=== PATIENT | female | born 1970 | race Caucasian/White ===

== ENCOUNTER → 2020-07-06 10:51 | Outpatient (CLI) | payer OTHER, SELFPAY ==
--- NOTE | ~2020-07-06 | US_ITS ---
EXAMINATION: US soft tissue head and neck DATE: 07/06/2020 11:11 INDICATION: Globus hystericus TECHNIQUE: Multiple ultrasound images of the anterior neck were obtained. COMPARISON: None. FINDINGS: A normal-sized right jugular chain lymph node is seen with central fatty hilum and measuring 3 mm in short axis diameter. No pathologically enlarged cervical lymphadenopathy, abnormal masses or fluid co llections identified. The right thyroid lobe measures 5.0 x 1.6 x 1.6 cm. The left thyroid lobe margi ures 5.5 x 1.3 x 1.5 cm. The thyroid isthmus measures 4 mm in thickness. 5 mm wider than tall right t hyroid nodule, unclear whether anechoic and cystic TI-RADS 1 or solid and very hypoechoic TI RADS 4, in either case not meeting size criteria for biopsy or follow-up. There is normal echotexture, echoge nicity and vascular flow throughout the main tear of the thyroid gland. IMPRESSION: 1. Likely benign 5 mm right thyroid nodule which does not meet size criteria for either follow-up or biopsy. Otherwise unremarkable ultrasound with no pathologically enlarged lymphadenopathy or other ab normal masses or fluid collections. Reviewed, dictated and finalized at location A. RPERSON IMPRESSION: 1. Likely benign 5 mm right thyroid nodule which does not meet size criteria fo r either follow-up or biopsy. Otherwise unremarkable ultrasound with no patholo gically enlarged lymphadenopathy or other abnormal masses or fluid collections.
== END ==
PROVIDERS: Visit Provider Physician Assistant Medical
DX: F45.8 Other somatoform disorders (principal)
CPT/HCPCS: 76536

== ENCOUNTER 2020-07-27 12:33 | Outpatient (CLI) | payer OTHER, SELFPAY ==
--- NOTE | ~2020-07-27 | CT_ITS ---
EXAMINATION: CT diagnostic chest wo con EXAM DATE: 07/27/2020 12:59 INDICATION: R91.1 - Solitary pulmonary nodule. TECHNIQUE: Spiral CT of the chest without contrast. Low-dose technique. Axial, coronal and sagittal i mages were reviewed. Coronal maximum intensity pixel images of chest reviewed. The dose-length prod uct (DLP) for this examination was 77.04 mGy-cm. The exposure was tailored according to patient size (auto mA exposure control), and iterative reconstruction (ASIR) was used as additional dose reductio n technique. There is no prior study for comparison. FINDINGS: Innumerable centrilobular groundglass nodular opacities throughout the lungs consistent wi th nonspecific bronchiolitis. Some differential diagnosis considerations for this includes respirator y bronchiolitis-interstitial lung disease (RB-ILD), hypersensitivity pneumonitis, chronic infectious process (TB or fungal), vasculitis. There are a couple of punctate nodules likely granulomas. There are no pleural or pericardial effusio ns. Tracheobronchial tree is patent. There is no mediastinal, hilar or axillary lymphadenopathy. There is no pneumothorax. Heart normal in size. No evidence of coronary arterial calcification. Gastric surgical change, probably bypass. Breast implants. There is mild thoracic spondylosis with out osteoblastic or osteolytic lesions identified. IMPRESSION: Innumerable faint centrilobular groundglass nodules, nonspecific bronchiolitis. Some diff erential considerations above. Reviewed, dictated and finalized at location B. ING MACHINE OPERATOR IMPRESSION: Innumerable faint centrilobular groundglass nodules, nonspecific br onchiolitis. Some differential considerations above.
== END 2020-07-27 12:34 | disposition home or self-care (01) ==
PROVIDERS: PCP Internal Medicine; Visit Provider Internal Medicine Critical Care Medicine
DX: R91.1 Solitary pulmonary nodule (principal); R91.8 Other nonspecific abnormal finding of lung field
CPT/HCPCS: 71250

== ENCOUNTER 2020-11-06 11:02 | Emergency (ER) | payer OTHER, SELFPAY ==
--- NOTE | ~2020-11-06 | CT_ITS ---
EXAMINATION: CT chest high resolution [facility] EXAM DATE: 11/06/2020 12:26 INDICATION: chest pain, lung nodules TECHNIQUE: Spiral CT of the chest without contrast. HRCT. Axial, coronal and sagittal images of the chest were reviewed. Coronal maximum intensity pixel images of chest reviewed. The dose-length prod uct (DLP) for this examination was 146.73 mGy-cm. The exposure was tailored according to patient siz e (auto mA exposure control), and iterative reconstruction (ASIR) was used as additional dose reducti on technique. Comparison is made to prior examination from 07/27/2020. FINDINGS: No change in innumerable centrilobular groundglass nodular opacities throughout the lungs consistent with nonspecific chronic bronchiolitis. Some differential diagnosis considerations for th is includes respiratory bronchiolitis-interstitial lung disease (RB-ILD), hypersensitivity pneumoniti s, chronic infectious process (TB or fungal), vasculitis. No intralobular septal thickening. There are a couple of punctate nodules likely granulomas, also unchanged. There are no pleural or per icardial effusions. Tracheobronchial tree is patent. There is no mediastinal, hilar or axillary l ymphadenopathy. There is no pneumothorax. Heart normal in size. No evidence of coronary arteria l calcification. Gastric bypass surgical changes. Breast implants. Cholecystectomy clips. There is mild thoracic spondylosis without osteoblastic or osteolytic lesions identified. There is no signifi cant interval change. IMPRESSION: Unchanged faint centrilobular groundglass nodules, nonspecific chronic bronchiolitis. Clay e differential considerations above. Reviewed, dictated and finalized at location B. 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 Some differential considerations above.
--- NOTE | ~2020-11-06 | XR_ITS ---
EXAMINATION: XR chest 2V DATE: 11/06/2020 11:51 INDICATION: Chest pain. TECHNIQUE: Frontal and lateral views of the chest were obtained. COMPARISON: Chest CT 07/27/2020 FINDINGS: The chest demonstrates clear lungs without pneumonia, pleural effusion, or pneumothorax. Th e heart size is normal. There are changes of anterior fusion procedure. Breast implants are noted. Th ere are surgical changes in the stomach. IMPRESSION: 1. No acute cardiopulmonary disease. Reviewed, dictated and finalized at location A.
[2020-11-06 11:15] VITALS: BP 116/94; PULSE 104; RESP 22; TEMP 36.1; O2SAT 100
--- NOTE | 2020-11-06 11:15 | ECG_ITS ---
Measurements Intervals [place] Rate: 90 P: 70 ID: 154 QRS: 39 QRSD: 94 T: 25 QT: 350 QTc: 430 Interpretive Statements SINUS RHYTHM MINIMAL Q WAVES- ANTEROLATERAL LEADS BORDERLINE ST-T WAVE ABNORMALITY- INFERIOR LEADS BASELINE ARTIFACT- I, II, III, AVR, AVL, V1-V2 BORDERLINE ECG Electronically Signed On 11-06-2020 12:06:05 CDT by Rl Loving D.O.
[2020-11-06 11:46] LABS: Basophils Percent Auto 0.5 % (0.2-1.2); Eosinophils Percent Auto 0.5 % (0-4.4); Hematocrit 34.9 % (37.0-47.0); Hemoglobin 10.7 g/dL (12.0-15.0); Immature Granulocyte Absolute 0.02 K/mm3 (0.00-0.031); Immature Granulocyte Percent A 0.3 % (0-0.5); Lymphocytes Absolute Auto 1.56 K/mm3 (0.9-3.2); Lymphocytes Percent Auto 20.5 % (18.3-44.2); Mean Corpuscular HGB Conc 30.7 g/dl (32-36); Mean Corpuscular Volume 78.3 fl (80-100); Mean Platelet Volume 8.2 fl (7.4-10.4); Monocytes Absolute Auto 0.5 K/mm3 (0.1-0.6); Monocytes Percent Auto 7.1 % (2.6-8.5); Neutrophils Absolute Auto 5.4 K/mm3 (1.3-6.7); Neutrophils Percent Auto 71.1 % (45.5-73.1); Platelet Count Result 309 k/mm3 (150-375); Red Blood Count 4.46 M/mm3 (4.2-5.4); Red Cell Distribution Width 19.5 % (11.5-14.5); White Blood Count 7.6 K/mm3 (4.5-10.0)
--- NOTE | 2020-11-06 11:46 | PC.NURSE ---
Pt to XRAY via stretcher.
[2020-11-06 11:55] LABS: Anion Gap 5 mmol/L (8-16); Blood Urea Nitrogen 17 mg/dL (7-17); Calcium 9.5 mg/dL (8.4-10.2); Carbon Dioxide 26 mmol/L (22-30); Chloride 108 mmol/L (98-107); Estimated CRCL calculation 108 ml/min; Estimated Glomerular Filt Rate > 60; Glucose 94 mg/dL (65-105); Potassium 3.9 mmol/L (3.4-5.0); Sodium 139 mmol/L (137-145)
[2020-11-06 12:00] LABS: INR 0.9; Prothrombin Time 12.9 Seconds (11.1-14.7)
[2020-11-06 12:01] LABS: Partial Thromboplastin Time 32.2 SECONDS (22.3-36.8)
--- NOTE | 2020-11-06 12:03 | ED.CHESTPAIN ---
HPI - Chest Pain General Chief Complaint: Chest Pain Stated Complaint: Chest pain Time Seen by Provider: 11/06/20 11:20 History of Present Illness HPI narrative: Patient is a 50-year-old female who presents ER with chest pain. Patient reports she started having discomfort last week and worsened over the weekend. She contacted her pulmonary disease specialist who instructed her to come to the ER. She has chronic lung disease with lung nodules. Pain starts under the breasts and goes up to the center of her chest. It is a tight aching feeling. Gets better with naproxen and then worsens when the naproxen wears off. No fevers or chills or sweats. No cough or shortness of breath. Pulmonology would like a D-dimer and then a CTA if positive or a high resolution CT if negative. Related Data Home Medications Medication Instructions Recorded Confirmed pantoprazole 40 mg tablet,delayed 40 mg PO DAILY tablet 12/22/19 11/05/20 release tizanidine 4 mg tablet 4 mg PO TID PRN 12/27/19 11/05/20 bupropion HCl 300 mg 24 hr tablet, 300 mg PO QAM 09/19/20 11/05/20 extended release cimetidine 400 mg tablet 400 mg PO QHS 09/19/20 11/05/20 Focalin XR 20 mg PO DAILY 11/05/20 11/05/20 Allergies Allergy/AdvReac Type Severity Reaction Status Date / Time clarithromycin Allergy Mild nausea, Verified 11/05/20 13:08 sick Review of Systems Review of Systems: All systems reviewed & are unremarkable except as noted in HPI and below Constitutional: Constitutional: Denies chills and Denies fever(s) ENT: Denies nasal congestion and Denies sore throat Cardiovascular: Cardiovascular: Reports chest pain, Denies rapid heart rate and Denies radiating jaw, neck or arm pain Respiratory: Respiratory: Denies cough and Denies dyspnea [facility]LY [facility] Past Medical History Medical History ADD (attention deficit disorder) Adenomatous colon polyp Chest pain Emphysema, unspecified GERD (gastroesophageal reflux disease) Lung nodule Rhinosinusitis SOB (shortness of breath) on exertion Tobacco consumption Surgical History Surgical History Gastric bypass status for obesity H/O abdominoplasty Hx laparoscopic cholecystectomy Family History Family History Father Carcinoma, lung Grandparent Carcinoma of stomach Grandparent Carcinoma of stomach Social History Social History Years smoked: 20 Smoking status: Current every day smoker Tobacco type: cigarettes Alcohol intake: current Substance use: never Gender identity (if verbalized by the patient): Female Spiritual care concerns: No Exam Narrative: Exam Narrative: GENERAL: Well-appearing, well-nourished, and in no acute distress. HEAD: Normocephalic, atraumatic. CHEST: Clear to auscultation. No respiratory distress. HEART: Tachycardic and regular. Normal peripheral pulses. ABDOMEN: Soft, nontender, nondistended. EXTREMITIES: Normal range of motion. No edema. SKIN: Warm, dry, no rash. NEURO: Alert and oriented x3. PSYCH: Normal mood and affect. Course Course Emergency Course: Patient informed of his results. Discussed case with patient's pulmonary disease specialist who recommended some specialty testing for patient's abnormal lung imaging. Patient unable to provide sputum. Discharge home with continued anti-inflammatories as Toradol improved her discomfort. We will also give some [place] for breakthrough pain. Vital Signs Vital signs: Vital Signs Temperature 97.0 F L 11/06/20 11:15 Pulse Rate 104 H 11/06/20 11:15 Respiratory Rate 22 H 11/06/20 11:15 Blood Pressure 116/94 H 11/06/20 11:15 Pulse Oximetry 100 11/06/20 11:15 Temperature 97.0 F L 11/06/20 11:15 Pulse Rate 89 11/06/20 15:35 Respiratory Rate 23 H 11/06/20 15:35 Blood Pressure 143/80 H 11/06/20 15:35 Pulse Oximetry 100 11/06/20 15:35 MDM
[2020-11-06 12:07] LABS: Troponin I < 0.012 ng/mL (0.000-0.034)
[2020-11-06 12:08] LABS: D Dimer 0.48 ug/mL (<0.48)
--- NOTE | 2020-11-06 13:37 | PC.NURSE ---
Pt ambulated to RR, declines VS at this time. Pt states she needs something for this pain in my chest , pt tearful. EDP made aware.
[2020-11-06 13:46] VITALS: BP 134/77; PULSE 78; RESP 14; O2SAT 100
[2020-11-06] MEDS: KETOROLAC 30 MG/ML VIAL (*BKC) IV PUSH (13:46)
[2020-11-06 14:40] VITALS: BP 143/80; PULSE 78; RESP 18; O2SAT 99
[2020-11-06 15:14] LABS: Rheumatoid Factor < 8.6 IU/ML (<12)
[2020-11-06 15:25] LABS: Troponin I < 0.012 ng/mL (0.000-0.034)
[2020-11-06 15:35] VITALS: BP 143/80; PULSE 89; RESP 23; O2SAT 100
[2020-11-06 16:05] VITALS: BP 142/86; PULSE 76; RESP 18; O2SAT 100
[2020-11-11 10:57] LABS: Anti Cyclic Citrullinated Pept <16 Units (<20)
[2020-11-11 12:25] LABS: NIL 0.07 IU/mL; Quantiferon TB Plus, 1T NEGATIVE (NEGATIVE); TB1-NIL <0.00 IU/mL; TB2-NIL <0.00 IU/mL
[2020-11-13 07:35] LABS: ANA Cascade Screen Negative (Negative)
== END 2020-11-06 16:06 | disposition home or self-care (01) ==
PROVIDERS: Emergency Provider Emergency Medicine; PCP Internal Medicine
DX: R07.89 Other chest pain (principal); F98.8 Other specified behavioral and emotional disorders with onset usually occurring in childhood and adolescence; Z86.010 Personal history of colon polyps; J43.9 Emphysema, unspecified; Z98.84 Bariatric surgery status; F17.210 Nicotine dependence, cigarettes, uncomplicated; R94.31 Abnormal electrocardiogram [ECG] [EKG]
CPT/HCPCS: 36415; 71046; 71250; 80048; 84484; 85025; 85380; 85610; 85730; 86038; 86200; 86331; 86430; 86480; 86606; 86609; 93005; 96374; 99284; J1885

== ENCOUNTER 2020-11-08 08:10 | Outpatient (CLI) | payer OTHER, SELFPAY ==
--- NOTE | 2020-11-08 16:50 | WPDPFTINT ---
PFT Procedure Performed PFT Procedure Performed Spirometry with Pre/Post Bronchodilator Plethysmography (Lung Vol) Diffusing Cap (DLCO) Flow Vol Loop PFT Interpretation This is a pulmonary function test with pre and post-bronchodilator spirometry, plethysmography and diffusing capacity. The test was performed and results interpreted in accordance with the 2019 and 2005 ATS/ERS Task Force guidelines respectively using the Global Lung Function Initiative-2012 reference equations. Patient demonstrated good effort and cooperation. Reproducibility criteria were met. The quality of the pre bronchodilator spirometry maneuver was Grade A and post bronchodilator spirometry maneuver was Grade A. Findings: Spirometry: There is decreased maximal expiratory airflow at low lung volumes with a mildly count concave expiratory flow tracing. The contour of the inspiratory flow tracing is normal. The pre bronchodilator FVC is 3.57 L, 94% predicted. The pre bronchodilator FEV1 is 2.48 L, 82% predicted. The FEV1: FVC ratio 69%. The post bronchodilator FVC is 3.70 L, representing a 4% increase. The post bronchodilator FEV1 is 2.60 L, representing a 5% increase. Plethysmography: The total lung capacity is 5.59 L, 102% predicted. Functional residual capacity is 2.79 L, 90% predicted. The residual volume is 2.02 L, 103% predicted. Diffusion capacity: The absolute diffusion capacity is 17.1, 72% predicted. The diffusing capacity corrected for alveolar volume is 3.52, 79% predicted. Impression: There is a mild obstructive abnormality with a normal FEV1 and without significant improvement after inhaling a single dose of albuterol. The lung volumes are normal. The absolute diffusing capacity is mildly decreased and normalizes when corrected for alveolar volume. There are no prior studies for comparison
== END 2020-11-08 08:11 | disposition home or self-care (01) ==
PROVIDERS: PCP Internal Medicine; Visit Provider Internal Medicine Pulmonary Disease
DX: R06.00 Dyspnea, unspecified (principal); R94.2 Abnormal results of pulmonary function studies
CPT/HCPCS: 94060; 94726; 94729

== ENCOUNTER → 2020-11-12 02:30 | Outpatient (CLI) | payer OTHER, SELFPAY ==
[2020-11-12 23:32] LABS: SARS-CoV-2 RNA PCR Negative
== END ==
PROVIDERS: PCP Internal Medicine; Visit Provider Internal Medicine Gastroenterology
DX: Z01.812 Encounter for preprocedural laboratory examination (principal); Z20.822 Contact with and (suspected) exposure to COVID-19
CPT/HCPCS: C9803; U0003; U0005

== ENCOUNTER 2020-11-15 00:46 | Day surgery (SDC) | payer OTHER, SELFPAY ==
[2020-11-05 13:18] VITALS: BMI 23.4
[2020-11-15 10:50] VITALS: BP 134/84; PULSE 84; RESP 20; TEMP 36.5; O2SAT 98; BMI 24.3
[2020-11-15] MEDS: LACTATED RINGERS 1,000 ML 150 ML IV CONT (11:04)
--- NOTE | 2020-11-15 11:26 | WPDANESEPPF ---
Anes - Initial Pre Proc Eval Procedure: Operation Date: 11/15/20 12:15 Proposed Procedures p Esophagogastroduodenoscopy & Screening Colonoscopy - Dewayne Brush MD Date/Time: 11/15/20 11:26 Surgeon: Dewayne Brush MD Pre Op Diagnosis: hx of colon polyps, dysphagia Patient Data Age: 50 Gender: F Height: 5 ft 7 in Weight: 70.6 kg Last Vital Signs Temp 97.7 F 11/15/20 10:50 Pulse 84 11/15/20 10:50 Resp 20 11/15/20 10:50 BP 134/84 11/15/20 10:50 Pulse Ox 98 11/15/20 10:50 Allergies Allergy/AdvReac Type Severity Reaction Status Date / Time clarithromycin Allergy Mild nausea, Verified 11/15/20 10:47 sick Home Medications Medication Instructions Recorded Confirmed Type pantoprazole 40 mg tablet,delayed 40 mg PO DAILY tablet 12/22/19 11/14/20 History release tizanidine 4 mg tablet 4 mg PO TID PRN 12/27/19 11/14/20 History bupropion HCl 300 mg 24 hr tablet, 300 mg PO QAM 09/19/20 11/14/20 History extended release cimetidine 400 mg tablet 400 mg PO QHS 09/19/20 11/14/20 History Focalin XR 20 mg PO DAILY 11/05/20 11/14/20 History hydrocodone-acetaminophen 1 tablet PO Q6H PRN #12 tablet 11/06/20 11/14/20 Rx naproxen 500 mg PO BID #14 tablet 11/06/20 11/14/20 Rx Patient hx anesthesia problems: none Family hx anesthesia problems: none PMFSH Past Medical History Medical History ADD (attention deficit disorder) Adenomatous colon polyp Chest pain Emphysema, unspecified GERD (gastroesophageal reflux disease) Lung nodule Rhinosinusitis SOB (shortness of breath) on exertion Tobacco consumption Surgical History Surgical History Gastric bypass status for obesity H/O abdominoplasty Hx laparoscopic cholecystectomy Family History Family History Father Carcinoma, lung Grandparent Carcinoma of stomach Grandparent Carcinoma of stomach Social History Social History Years smoked: 20 Smoking status: Current every day smoker Tobacco type: cigarettes Alcohol intake: current Alcohol use details: OCCATIONALLY Substance use: never Substance use type: does not use Living arrangements: alone Gender identity (if verbalized by the patient): Female Spiritual care concerns: No Anes - Eval Final PreProcedure Day of Procedure 11/15/20 11:26 Patient weight: normal Heart: regular rate and rhythm Lungs: clear to auscultation Airway: Mallampati scale class III Neurological: alert and oriented Last oral intake: >/= 8 hours ASA classification: II Emergent: no Anesthetic plan: proceed Anesthesia type and monitoring: general GIVS and standard monitoring Informed Consent: The patient's anesthetic plan and its attendant risks and benefits were discussed with the patient/family/POA. Questions were solicited and answers provided to the satisfaction of the patient/family/POA.
--- NOTE | 2020-11-15 12:01 | PM.HPGS ---
History of Present Illness History of Present Illness Consent: Risks, benefits, and alternatives have been discussed and questions answered. Patient agrees to proceed with procedure. Chief complaint: hx of colon polyps, dysphagia Narrative: Mere Ramirez is a 50 year old female here for egd and colonoscopy, had gastric bypass about 20 years ago for bariatric surgery, then she was getting EGD every 4-5 years because marginal ulcer at site of surgery- she has done quite well using protonix daily. Last EGD 2015 and she also believes that her last colonoscopy around same time with polyps in the past. She is here because choking after taking her pills Review of Systems Constitutional: Constitutional: Denies headache(s) and Denies weakness Eyes: Eyes: Denies blurry vision ENT: Reports Normal hearing present, Denies headache(s) and Denies neck pain Cardiovascular: Cardiovascular: Denies chest pain and Denies dyspnea Respiratory: Respiratory: Denies dyspnea Gastrointestinal: Gastrointestinal: Reports no additional gastrointestinal complaints Genitourinary: Genitourinary: Denies dysuria Musculoskeletal: Musculoskeletal: Denies neck pain Integumentary/Breasts: Skin/Breast: Denies dry skin Neurologic: Reports Normal hearing present, Denies headache(s) and Denies weakness Psychiatric: Psychiatric: Denies anxiety Endocrine: Endocrine: Denies change in body appearance Hematologic/Lymphatic: Hematologic/Lymphatic: Denies easy bleeding Allergic/Immunologic: Allergic/Immunologic: Denies urticaria PMFSH Past Medical History Medical History ADD (attention deficit disorder) Adenomatous colon polyp Chest pain Dysphagia Emphysema, unspecified GERD (gastroesophageal reflux disease) Lung nodule Rhinosinusitis SOB (shortness of breath) on exertion Tobacco consumption Surgical History Surgical History Gastric bypass status for obesity H/O abdominoplasty Hx laparoscopic cholecystectomy Family History Family History Father Carcinoma, lung Grandparent Carcinoma of stomach Grandparent Carcinoma of stomach Social History Social History Years smoked: 20 Smoking status: Current every day smoker Tobacco type: cigarettes Alcohol intake: current Alcohol use details: OCCATIONALLY Substance use: never Substance use type: does not use Living arrangements: alone Gender identity (if verbalized by the patient): Female Spiritual care concerns: No Meds Home Medications and Allergies Home Medications Medication Instructions Recorded Confirmed Type pantoprazole 40 mg tablet,delayed 40 mg PO DAILY tablet 12/22/19 11/14/20 History release tizanidine 4 mg tablet 4 mg PO TID PRN 12/27/19 11/14/20 History bupropion HCl 300 mg 24 hr tablet, 300 mg PO QAM 09/19/20 11/14/20 History extended release cimetidine 400 mg tablet 400 mg PO QHS 09/19/20 11/14/20 History Focalin XR 20 mg PO DAILY 11/05/20 11/14/20 History hydrocodone-acetaminophen 1 tablet PO Q6H PRN #12 tablet 11/06/20 11/14/20 Rx naproxen 500 mg PO BID #14 tablet 11/06/20 11/14/20 Rx Allergies Allergy/AdvReac Type Severity Reaction Status Date / Time clarithromycin Allergy Mild nausea, Verified 11/15/20 10:47 sick Vital Signs Vital Signs - 24 hr 11/15/20 10:50 Temperature 97.7 F Pulse Rate 84 Respiratory Rate 20 Blood Pressure 134/84 Pulse Oximetry 98 Exam Const: General: comfortable and no acute distress HENMT: General nose exam: Normal nares present Eyes: General: appearance normal, both eyes and all related structures Neck: Neck: no JVD Resp: Auscultation: clear to auscultation bilaterally Cardio: Rate: regular rate Rhythm: regular rhythm GI: Inspection: non-distended GI Palp: Yes Soft to palpation Skin: General skin exam:
[2020-11-15 12:45] VITALS: BP 115/59; PULSE 73; RESP 21; O2SAT 98
[2020-11-15 12:55] VITALS: BP 114/82; PULSE 74; RESP 21; O2SAT 99
[2020-11-15 13:05] VITALS: BP 136/75; PULSE 69; RESP 19; O2SAT 99
== END 2020-11-15 13:16 | disposition home or self-care (01) ==
PROVIDERS: PCP Internal Medicine; Visit Provider Internal Medicine Gastroenterology
PROC: 0DJ08ZZ Inspection of Upper Intestinal Tract, Via Natural or Artificial Opening Endoscopic (ICD-10-PCS; CPT 43235; principal; 2020-11-15 12:15)
DX: Z12.11 Encounter for screening for malignant neoplasm of colon (principal); K57.30 Diverticulosis of large intestine without perforation or abscess without bleeding; K64.8 Other hemorrhoids; R13.19 Other dysphagia; K25.9 Gastric ulcer, unspecified as acute or chronic, without hemorrhage or perforation; Z98.0 Intestinal bypass and anastomosis status; F98.8 Other specified behavioral and emotional disorders with onset usually occurring in childhood and adolescence; J43.9 Emphysema, unspecified; F17.210 Nicotine dependence, cigarettes, uncomplicated; Z98.84 Bariatric surgery status; R13.10 Dysphagia, unspecified; Z87.19 Personal history of other diseases of the digestive system
CPT/HCPCS: 45378; 43239; 43245; 88305; C1726; J2704; J7120

== ENCOUNTER → 2020-11-23 00:28 | Outpatient (CLI) | payer OTHER, SELFPAY ==
[2020-11-23 19:26] LABS: SARS-CoV-2 RNA PCR Negative
== END ==
PROVIDERS: PCP Internal Medicine; Visit Provider Internal Medicine Pulmonary Disease
DX: Z01.812 Encounter for preprocedural laboratory examination (principal); Z20.822 Contact with and (suspected) exposure to COVID-19
CPT/HCPCS: C9803; U0003; U0005

== ENCOUNTER 2020-11-26 00:23 | Day surgery (SDC) | payer OTHER, SELFPAY ==
[2020-11-14 16:33] VITALS: BMI 23.4
[2020-11-26] VITALS (7 sets, daily range): BP systolic 78–146; BP diastolic 44–77; PULSE 78–88; RESP 15–24; TEMP 36.2–36.4; O2SAT 95–100
--- NOTE | ~2020-11-26 | XR_ITS ---
EXAMINATION: XR fl bronchoscopy w imaging INDICATION: Right lower lobe biopsy, bronchoscopy TECHNIQUE: Single fluoroscopic image is submitted for review. Total fluoroscopic time was 108.0 secon ds. COMPARISON: None available FINDINGS: Fluoroscopic image demonstrates a biopsy device projecting in the right lung base. IMPRESSION: 1. Please refer to procedure note for full details. Reviewed, dictated and finalized at location A.
--- NOTE | ~2020-11-26 | XR_ITS ---
EXAMINATION: XR chest 1V portable INDICATION: Post bronchoscopy TECHNIQUE: Portable AP chest at 1008 hours COMPARISON: 11/06/2020 FINDINGS: There are minimal airspace opacities in the right lung base. No pleural effusion or pneumot horax is identified. The cardiomediastinal silhouette is normal. Fusion hardware is noted in the lowe r cervical spine. IMPRESSION: 1. Minimal airspace opacity of the right lung base, consistent with bronchoscopic change. Reviewed, dictated and finalized at location A. IMPRESSION: 1. Minimal airspace opacity of the right lung base, consistent with bronchoscop ic change.
[2020-11-26] MEDS: LACTATED RINGERS 1,000 ML 150 ML IV CONT (07:57)
--- NOTE | 2020-11-26 08:48 | PM.IMHP ---
H&P: HPI History of Present Illness Date/Time: 11/26/20 08:48 Chief Complaint: pulmonary nodules Narrative: 11/26: Patient arrived today for bronchoscopy. States she quit smoking 11/10 with one relapse 11/23. States she has no chest pain, sputum, fever, hemoptysis and breathing is improved. Covid test negative. Bronchscopy procedure benefits and risks reviewed. From clinic notes: Addendum: Patient called on 11/06 and continued to have SOB and CP and recommended she go to the ED. Patient seen in ED on 11/06 with negative troponin, EKG, d dimer. High resolution CT scan with unchanged centrilobular ground glass nodules. Sent ANNA cascade, anti CCP, RF, quantiferon gold and hypersensitivity panel. She has decreased tobacco to 3 cigs per day. I talked to patient on 11/08 and with continued symptoms and unchanged CT infiltrates we scheduled bronchoscopy for 11/26. She also has a rhematology appointment with Dr. Spencer on 01/14/21. On 11/11 RF < 8.6, others pending. EXAMINATION: CT chest high resolution [facility] EXAM DATE: 11/06/2020 12:26 INDICATION: chest pain, lung nodules TECHNIQUE: Spiral CT of the chest without contrast. HRCT. Axial, coronal and sagittal images of the chest were reviewed. Coronal maximum intensity pixel images of chest reviewed. The dose-length product (DLP) for this examination was 146.73 mGy-cm. The exposure was tailored according to patient size (auto mA exposure control), and iterative reconstruction (ASIR) was used as additional dose reduction technique. Comparison is made to prior examination from 07/27/2020. FINDINGS: No change in innumerable centrilobular groundglass nodular opacities throughout the lungs consistent with nonspecific chronic bronchiolitis. Some differential diagnosis considerations for this includes respiratory bronchiolitis-interstitial lung disease (RB-ILD), hypersensitivity pneumonitis, chronic infectious process (TB or fungal), vasculitis. No intralobular septal thickening. There are a couple of punctate nodules likely granulomas, also unchanged. There are no pleural or pericardial effusions. Tracheobronchial tree is patent. There is no mediastinal, hilar or axillary lymphadenopathy. There is no pneumothorax. Heart normal in size. No evidence of coronary arterial calcification. Gastric bypass surgical changes. Breast implants. Cholecystectomy clips. There is mild thoracic spondylosis without osteoblastic or osteolytic lesions identified. There is no significant interval change. IMPRESSION: Unchanged faint centrilobular groundglass nodules, nonspecific chronic bronchiolitis. Some differential considerations above. This is a pulmonary function test with pre and post-bronchodilator spirometry, plethysmography and diffusing capacity. The test was performed and results interpreted in accordance with the 2019 and 2005 ATS/ERS Task Force guidelines respectively using the Global Lung Function Initiative-2012 reference equations. Patient demonstrated good effort and cooperation. Reproducibility criteria were met. The quality of the pre bronchodilator spirometry maneuver was Grade A and post bronchodilator spirometry maneuver was Grade A. Findings: Spirometry: There is decreased maximal expiratory airflow at low lung volumes with a mildly count concave expiratory flow tracing. The contour of the inspiratory flow tracing is normal. The pre bronchodilator FVC is 3.57 L, 94% predicted. The pre bronchodilator FEV1 is 2.48 L, 82% predicted. The FEV1: FVC ratio 69%. The post bronchodilator FVC is 3.70 L, representing a 4% increase. The post bronchodilator FEV1 is 2.60 L, representing a 5% increase. Plethysmography: The total lung capacity is 5.59 L, 102% predicted. Functional residual capacity is 2.79 L, 90% predicted. The residual volume is 2.02 L, 103% predicted. Diffusion capacity: The absolute diffusion ca
--- NOTE | 2020-11-26 09:00 | WPDANESEPPF ---
Anes - Initial Pre Proc Eval Procedure: Operation Date: 11/26/20 09:15 Proposed Procedures p Bronchoscopy w/ Fluoroscopy - Jordan Ballard MD Date/Time: 11/26/20 09:00 Surgeon: Jordan Ballard MD Pre Op Diagnosis: pulmonary nodules Patient Data Age: 50 Gender: F Height: 1.7 m Weight: 71 kg Last Vital Signs Temp 97.2 F L 11/26/20 07:53 Pulse 87 11/26/20 07:53 Resp 18 11/26/20 07:53 BP 143/77 H 11/26/20 07:53 Pulse Ox 100 11/26/20 07:53 Allergies Allergy/AdvReac Type Severity Reaction Status Date / Time clarithromycin Allergy Mild nausea, Verified 11/26/20 07:51 sick Home Medications Medication Instructions Recorded Confirmed Type tizanidine 4 mg tablet 4 mg PO TID PRN 12/27/19 11/14/20 History bupropion HCl 300 mg 24 hr tablet, 300 mg PO QAM 09/19/20 11/14/20 History extended release cimetidine 400 mg tablet 400 mg PO QHS 09/19/20 11/14/20 History Focalin XR 20 mg PO DAILY 11/05/20 11/14/20 History hydrocodone-acetaminophen 1 tablet PO Q6H PRN #12 tablet 11/06/20 11/14/20 Rx naproxen 500 mg PO BID #14 tablet 11/06/20 11/14/20 Rx pantoprazole 40 mg tablet,delayed 40 mg PO BID 30 Days #60 tablet 11/15/20 Rx release Patient hx anesthesia problems: none Family hx anesthesia problems: none PMFSH Past Medical History Medical History ADD (attention deficit disorder) Adenomatous colon polyp Chest pain Dysphagia Emphysema, unspecified GERD (gastroesophageal reflux disease) Lung nodule Rhinosinusitis SOB (shortness of breath) on exertion Tobacco consumption Surgical History Surgical History Gastric bypass status for obesity H/O abdominoplasty Hx laparoscopic cholecystectomy Family History Family History Father Carcinoma, lung Grandparent Carcinoma of stomach Grandparent Carcinoma of stomach Social History Social History Years smoked: 20 Smoking status: Current every day smoker Tobacco type: cigarettes Alcohol intake: current Substance use: never Substance use type: does not use Living arrangements: alone Gender identity (if verbalized by the patient): Female Spiritual care concerns: No Anes - Eval Final PreProcedure Day of Procedure 11/26/20 09:00 Patient weight: overweight Heart: regular rate and rhythm Lungs: clear to auscultation Airway: Mallampati scale class III (use glidescope) Neurological: alert and oriented Last oral intake: >/= 8 hours ASA classification: II Emergent: no Anesthetic plan: proceed Anesthesia type and monitoring: general ETT and standard monitoring Informed Consent: The patient's anesthetic plan and its attendant risks and benefits were discussed with the patient/family/POA. Questions were solicited and answers provided to the satisfaction of the patient/family/POA.
[2020-11-26] MEDS: SODIUM CHLORIDE 0.9% IV 500 ML BAG IRRIGATION (09:54)
[2020-11-26] MEDS: LIDOCAINE HCL 2% LOCAL INJ 20 ML VIAL INFILTRATE (09:55)
[2020-11-26 11:37] LABS: Source Bronchial Fluid Bronchial Lavage
[2020-11-26 11:38] LABS: Appearance Bronchial Fluid Clear; Color Bronchial Fluid Colorless
[2020-11-26 11:39] LABS: Eosinophils Bronchial Fluid 0 %; Monocytes Bronchial Fluid 0 %
[2020-11-26 12:20] LABS: Lymphocytes Bronchial Fluid 0 %; Macrophages Bronchial Fluid 100; Neutrophils Bronchial Fluid 0 %; Other Cells Bronchial Fluid 0 %
== END 2020-11-26 11:05 | disposition home or self-care (01) ==
PROVIDERS: PCP Internal Medicine; Visit Provider Internal Medicine Pulmonary Disease
PROC: BB1DZZZ Fluoroscopy of Upper Airways (ICD-10-PCS; CPT 31624; principal; 2020-11-26 09:00)
DX: J84.89 Other specified interstitial pulmonary diseases (principal); J98.11 Atelectasis; F98.8 Other specified behavioral and emotional disorders with onset usually occurring in childhood and adolescence; J43.9 Emphysema, unspecified; K21.9 Gastro-esophageal reflux disease without esophagitis; Z79.891 Long term (current) use of opiate analgesic; Z98.84 Bariatric surgery status; F17.210 Nicotine dependence, cigarettes, uncomplicated
CPT/HCPCS: 31628; 31632; 31624; 71045; 76000; 85999; 87015; 87070; 87102; 87116; 87205; 87206; 88104; 88108; 88305; 88313; J0330; J1100; J2405; J2704; J7040; J7120

== ENCOUNTER 2021-02-01 10:16 | Outpatient (CLI) | payer OTHER, SELFPAY ==
--- NOTE | ~2021-02-01 | CT_ITS ---
EXAMINATION: CT diagnostic chest wo con DATE: 02/01/2021 10:58 INDICATION: Abnormal finding of lung field TECHNIQUE: Computed tomography (CT) of the chest was performed without intravenous contrast. Automate d exposure control and iterative reconstruction technique were employed. Exam dose: 153.91 mGy-cm to dominga exam DLP. COMPARISON: 11/26/2020 portable AP chest 11/06/2020 CT chest high resolution scan FINDINGS: Bilateral breast implants are noted. There are groundglass interstitial changes in the lungs, most prominent in the upper lung zones, whic h may be mild interstitial pneumonitis, small airways disease or fibrotic change. Minimal atelectasis in the lower lobes. Mild emphysematous changes of the lungs. Nonspecific 3 mm nodule, left lower lobe, possibly a small pulmonary granuloma (series 4 image 83). Normal heart size. No pericardial or pleural effusion. No hilar or mediastinal mass lesion or lymphadenopathy. Thoracic aortic and great vessel calcification. No thoracic aortic aneurysm. size. Normal morphology of the adrenal glands. Status post cholecystectomy. Status post gastric bypass surgery. IMPRESSION: Mild emphysematous changes Mild groundglass interstitial changes of the lungs, most prominent in the upper lung zones, which may represent mild interstitial pneumonitis, small airways disease or fibrotic change Status post cholecystectomy Status post gastric bypass surgery Status post bilateral augmentation mammoplasty Reviewed, dictated and finalized at Location A. Reviewed, dictated and finalized at location A. IMPRESSION: Mild emphysematous changes Mild groundglass interstitial changes of the lungs, most prominent in the upper lung zones, which may represent mild interstitial pneumonitis, small airways d isease or fibrotic change Status post cholecystectomy Status post gastric bypass surgery Status post bilateral augmentation mammoplasty
== END 2021-02-01 10:17 | disposition home or self-care (01) ==
LOC: ANHIMG 10:19
PROVIDERS: PCP Internal Medicine; Visit Provider Internal Medicine Pulmonary Disease
DX: R91.8 Other nonspecific abnormal finding of lung field (principal); Z90.49 Acquired absence of other specified parts of digestive tract; Z98.84 Bariatric surgery status; Z98.890 Other specified postprocedural states
CPT/HCPCS: 71250

== ENCOUNTER 2021-03-09 11:49 | Emergency (ER) | payer OTHER, SELFPAY ==
[2021-03-09 12:25] VITALS: BP 175/95; PULSE 91; RESP 16; TEMP 37.2; O2SAT 100
[2021-03-09 12:29] LABS: Basophils Absolute Auto 0.1 K/mm3 (0.0-0.1); Basophils Percent Auto 0.7 % (0.2-1.2); Eosinophils Percent Auto 0.4 % (0-4.4); Hemoglobin 10.5 g/dL (12.0-15.0); Immature Granulocyte Absolute 0.04 K/mm3 (0.00-0.031); Immature Granulocyte Percent A 0.4 % (0-0.5); Lymphocytes Absolute Auto 1.11 K/mm3 (0.9-3.2); Mean Corpuscular HGB Conc 30.9 g/dl (32-36); Mean Corpuscular Hemoglobin 23.5 pg (26-34); Mean Corpuscular Volume 76.2 fl (80-100); Mean Platelet Volume 7.9 fl (7.4-10.4); Monocytes Absolute Auto 0.4 K/mm3 (0.1-0.6); Monocytes Percent Auto 3.2 % (2.6-8.5); Neutrophils Absolute Auto 9.4 K/mm3 (1.3-6.7); Neutrophils Percent Auto 85.3 % (45.5-73.1); Platelet Count Result 439 k/mm3 (150-375); Red Blood Count 4.46 M/mm3 (4.2-5.4); Red Cell Distribution Width 17.3 % (11.5-14.5); White Blood Count 11.1 K/mm3 (4.5-10.0)
[2021-03-09 12:40] LABS: Add Urine Microscopic? YES; Appearance Urine Clear (Clear); Bilirubin Urine Negative (Negative); Blood Urine Negative (Negative); Color Urine Yellow (Yellow); Glucose Urine UA Negative (Negative); Ketones Urine Trace mg/dL (Negative); Leukocyte Esterase Ur Negative LEU/UL (Negative); Mucus Urine Rare /lpf; Nitrate Urine Negative (Negative); Protein Urine Negative (Negative); RBC Urine 0-2 /hpf (0-2); Specific Grav Ur 1.019 (1.001-1.035); Squamous Epithelial Cell Urine Rare /hpf (Few); Urobilinogen Urine Negative mg/dL (<2.0); WBC Urine 0-3 /hpf
[2021-03-09 12:40] LABS: Alanine Aminotransferase 14 U/L (4-35); Albumin Level 4.3 g/dL (3.5-5.1); Alkaline Phosphatase 114 U/L (38-126); Anion Gap 8 mmol/L (8-16); Aspartate Amino Transferase 23 U/L (14-36); Bilirubin,Total 0.3 mg/dL (0.2-1.3); Blood Urea Nitrogen 29 mg/dL (7-17); Calcium 10.3 mg/dL (8.4-10.2); Carbon Dioxide 28 mmol/L (22-30); Chloride 99 mmol/L (98-107); Estimated CRCL calculation 73 ml/min; Estimated Glomerular Filt Rate > 60; Glucose 107 mg/dL (65-110); Lipase 47 U/L (23-300); Potassium 4.6 mmol/L (3.4-5.0); Sodium 135 mmol/L (137-145)
[2021-03-09 15:15] VITALS: BP 145/73; PULSE 79; RESP 16; TEMP 37; O2SAT 97
--- NOTE | 2021-03-09 15:36 | PC.NURSE ---
pt states she cant do this and is leaving. out with family
== END 2021-03-10 04:33 | disposition left against medical advice (07) ==
PROVIDERS: Emergency Provider Emergency Medicine; PCP Internal Medicine
DX: R10.9 Unspecified abdominal pain (principal)
CPT/HCPCS: 36415; 80053; 81001; 81025; 83690; 85025; 99199

== ENCOUNTER → 2021-06-30 08:48 | Outpatient (CLI) | payer OTHER, SELFPAY ==
--- NOTE | ~2021-06-30 | MR_ITS ---
EXAMINATION: MR cervical spine wo/w con EXAM DATE: 06/30/2021 09:57 INDICATION: Fusion of spine, cervical region fusion of spine, cervical region. TECHNIQUE: Multi-sequential, multiplanar MR images of the cervical spine were obtained without contra st. Axial T2, axial T2 MERGE sequence. Sagittal T1, T2, T2 fat saturation images also obtained. Axi al T1 weighted sequence. Patient was then injected with 15 mL Multihance intravenous contrast and re imaged. Postcontrast axial and sagittal T1-weighted fat saturation sequences were obtained. Comparis on is made to prior examination from 11/26/2016. FINDINGS: Congenitally narrow cervical spinal canal. There is anterior and interbody fusion at C5-6. Mild to moderate disc disease C3-4, mild at C4-5 and C6-7. The spinal cord signal intensity and intri nsic morphology is normal. Cervicomedullary junction is normal in appearance. There are no suspicious marrow signal abnormalities. Paraspinal soft tissue is unremarkable. There are no areas of abnormal enhancement on the post contrast images. Level by level evaluation: C2-C3: Disc does not extend beyond the endplate margin. Uncovertebral joint arthropathy: Mild left. Facet joint arthropathy: Mild bilateral. Neural foraminal stenosis: No stenosis. Central canal stenosis: No stenosis. C3-C4: There is a mild diffuse disc bulge. Uncovertebral joint arthropathy: Moderate right, mild to moderate left. Facet joint arthropathy: Moderate bilateral. Neural foraminal stenosis: Moderate to severe right, mild left. Central canal stenosis: Mild to moderate superimposed on congenital. . Central canal measures 5 mm in mid sagittal AP diameter . C4-C5: There is a minimal diffuse disc bulge. Uncovertebral joint arthropathy: Mild bilateral. Facet joint arthropathy: Moderate right, mild left. Neural foraminal stenosis: Moderate right. Central canal stenosis: Mild superimposed on congenital. . Central canal measures 6 mm in mid sagittal AP diameter . C5-C6: This level is fused. Uncovertebral joint arthropathy: Fused. Facet joint arthropathy: Mild to moderate bilateral. Neural foraminal stenosis: No stenosis. Central canal stenosis: Congenital. C6-C7: There is a mild diffuse disc bulge. Uncovertebral joint arthropathy: Mild to moderate bilateral. Facet joint arthropathy: Mild to moderate bilateral. Neural foraminal stenosis: Mild to moderate left, mild right. Central canal stenosis: Mild. . Central canal measures 6-7 mm in mid sagittal AP diameter C7-T1: Disc does not extend beyond the endplate margin. Uncovertebral joint arthropathy: Moderate right, mild to moderate left. Facet joint arthropathy: Mild to moderate bilateral. Neural foraminal stenosis: Mild to moderate left. Central canal stenosis: No stenosis. There is been mild interval progression spondylosis, and in particular the C4-5 and 5-6 neural forami nal stenosis compared to prior study. IMPRESSION: 1. C3-4 moderate to severe and C4-5 moderate right neural foraminal stenosis. 2. Less spondylosis other levels superimposed on congenital central canal stenosis. Reviewed, dictated and finalized at location A. BUYER IMPRESSION: 1. C3-4 moderate to severe and C4-5 moderate right neural foraminal stenosis. 2. Less spondylosis other levels superimposed on congenital central canal sten osis.
[2021-06-30 09:12] LABS: Estimated Glomerular Filt Rate > 60
== END ==
PROVIDERS: PCP Internal Medicine
DX: M43.22 Fusion of spine, cervical region (principal); M47.892 Other spondylosis, cervical region
CPT/HCPCS: 72156; A9577

== ENCOUNTER 2021-09-02 14:52 | Outpatient (CLI) | payer OTHER, SELFPAY ==
--- NOTE | 2021-09-03 09:29 | WPDPFTINT ---
PFT Procedure Performed PFT Procedure Performed Spirometry with Pre/Post Bronchodilator Plethysmography (Lung Vol) Diffusing Cap (DLCO) Flow Vol Loop PFT Interpretation This is a pulmonary function test with pre and post-bronchodilator spirometry, plethysmography and diffusing capacity. The test was performed and results interpreted in accordance with the 2019 and 2005 ATS/ERS Task Force guidelines respectively using the Global Lung Function Initiative-2012 reference equations. Patient demonstrated good effort and cooperation. Reproducibility criteria were met. The quality of the pre bronchodilator spirometry maneuver was Grade A and post bronchodilator spirometry maneuver was Grade A. Findings: Spirometry: There contour the inspiratory and expiratory flow tracing are normal. The pre bronchodilator FVC is 3.48 L, 92% predicted. The pre bronchodilator FEV1 is 2.58 L, 86% predicted. The FEV1: FVC ratio 74%. The post bronchodilator FVC is 3.52 L, representing 1% increase. The post bronchodilator FEV1 is 2.76 L, representing a 7% increase. The post bronchodilator FEV1: FVC ratio is 78%. Plethysmography: The total lung capacity is 5.81 L, 106% predicted. The functional residual capacity is 3.27 L, 106% predicted. The residual volume is 1.94 L, 98% predicted. Diffusing capacity: The diffusing capacity unadjusted for hemoglobin and carboxyhemoglobin is 14.7, 62% predicted. The diffusing capacity adjusted for alveolar volume is 3.33, 75% predicted. In comparison to previous pulmonary function test on 11/08/2020 the post bronchodilator FVC is unchanged from 3.70 L to 3.52 L. The post bronchodilator FEV1 is unchanged from 2.60 L to 2.76 L. The total lung capacity is unchanged from 5.59 L to 5.81 L. The functional residual capacity is increased from 2.79 L to 3.27 L. The residual volume is unchanged from 2.02 L to 1.94 L. The diffusing capacity unadjusted for hemoglobin and carboxyhemoglobin is decreased from 17.1 to 14.7. The diffusing capacity adjusted for alveolar volume is unchanged from 3.52 to 3.33. Impression: The spirometry is normal without evidence of an obstructive abnormality. There is no significant improvement after inhaling a single dose of albuterol. The lung volumes are normal. The diffusing capacity unadjusted for hemoglobin and carboxyhemoglobin is moderately decreased and normalizes when adjusted for alveolar volume. In comparison to previous pulmonary function on 11/08/2020 there has been a greater than anticipated time dependent increase in the functional residual capacity, a greater than anticipated decrease in the diffusing capacity unadjusted for hemoglobin and carboxyhemoglobin with no significant change in the FVC, FEV1, total lung capacity, residual volume and diffusing capacity adjusted for alveolar volume. Clinical correlation is recommended. There are no prior studies for comparison
== END 2021-09-02 14:53 | disposition home or self-care (01) ==
LOC: ANHPFT 14:54
PROVIDERS: PCP Internal Medicine; Visit Provider Internal Medicine Pulmonary Disease
DX: R06.00 Dyspnea, unspecified (principal)
CPT/HCPCS: 94060; 94726; 94729

== ENCOUNTER 2021-09-20 09:00 | Outpatient (CLI) | payer OTHER, SELFPAY ==
--- NOTE | ~2021-09-20 | CT_ITS ---
EXAMINATION: CT diagnostic chest wo con DATE: 09/20/2021 09:38 INDICATION: Respiratory bronchiolitis interstitial lung disease TECHNIQUE: Computed tomography (CT) of the chest was performed without intravenous contrast. Automate d exposure control and iterative reconstruction technique were employed. The dose-length product was 170.29 mGy-cm. COMPARISON: Chest CTs: 01/24/2021, 11/06/2020, 07/27/2020. FINDINGS: Thoracic aorta: Mild atherosclerotic calcifications. Lung parenchyma and airways: Stable pulmonary nodules, requires no additional follow-up. Stable upper lobe predominant centrilobular groundglass opacities and mild peripheral tree-in-bud opacities as ca n be seen with RB-ILD, hypersensitivity pneumonitis, chronic infection or vasculitis. Thoracic inlet, axillae and chest wall: Bilateral breast augmentation. Mediastinum: Unremarkable. Heart and pericardium: Unremarkable. Coronary artery calcifications: Absent. Pleura: No mass or effusion. Upper abdomen: Gastric bypass. Several hyperdense foci within the stomach likely ingested medication or supplement. Bones: No acute osseous finding. IMPRESSION: No acute process in the chest. Stable findings of chronic bronchiolitis, differential discussed above . Reviewed, dictated and finalized at location K. IMPRESSION: No acute process in the chest. Stable findings of chronic bronchiolitis, differ ential discussed above.
== END 2021-09-20 09:01 | disposition home or self-care (01) ==
LOC: ANHIMG 09:01
PROVIDERS: PCP Internal Medicine; Visit Provider Internal Medicine Pulmonary Disease
DX: J84.115 Respiratory bronchiolitis interstitial lung disease (principal); I70.0 Atherosclerosis of aorta; R91.8 Other nonspecific abnormal finding of lung field; Z98.84 Bariatric surgery status
CPT/HCPCS: 71250

== ENCOUNTER 2022-08-06 13:16 | Outpatient (CLI) | payer BC, SELFPAY ==
[2022-08-06 13:49] LABS: Uric Acid 2.9 mg/dL (2.5-7.5)
[2022-08-06 13:52] LABS: Rheumatoid Factor < 8.6 IU/ML (<12)
[2022-08-06 14:39] LABS: Erythrocyte Sedimentation Rate 5 mm/hr (0-20)
[2022-08-09 16:04] LABS: Cyclic Citrullinated Peptide <16 Units (<20)
[2022-08-11 08:55] LABS: Anti Nuclear Antibody Titer 1:40 (Negative)
[2022-08-11 17:36] LABS: HLA B27 Negative (Negative)
== END 2022-08-06 13:17 | disposition home or self-care (01) ==
PROVIDERS: PCP Physician Assistant Medical
DX: L40.59 Other psoriatic arthropathy (principal)
CPT/HCPCS: 36415; 84550; 85652; 86038; 86039; 86430; 86812

== ENCOUNTER 2023-02-01 20:46 | Emergency (ER) | payer BC, SELFPAY ==
[2023-02-01 20:50] VITALS: BP 130/101; PULSE 118; RESP 20; TEMP 36.6; O2SAT 96
[2023-02-01 20:52] VITALS: BP 127/110; PULSE 120; O2SAT 95
--- NOTE | 2023-02-01 20:52 | ED.NEUROSD ---
HPI - Neuro Symptoms/Deficit General Chief Complaint: Neuro Symptoms/Deficit Stated Complaint: Neck Pain Source: patient Mode of arrival: ambulatory Limitations: no limitations History of Present Illness HPI Narrative: 52 year old female presents to the Emergency Department complaining of neck pain and burning pain to arms. Patient has history of cervical stenosis and peripheral neuropathy. She was recently hospitalized at [facility] for same and her gabapentin was increased. She has seen her PCP 01/20. She states she was taken off hydrocodone because of her elevated LFT's. She did improve with a course of steroids after hospitalization. She is requesting repeat labs, pain control and course of steroids. Onset (ago): year(s) Severity: severe Quality: burning Relieving factors: none Exacerbating factors: none On Anticoagulants: No Related Data Home Medications Medication Instructions Recorded Confirmed tizanidine 4 mg tablet 4 mg PO BID PRN Spasms 11/06/21 01/20/23 methotrexate sodium 2.5 mg tablet 5 mg PO WEEKLY 12/23/22 01/20/23 gabapentin 600 mg tablet 600 mg PO TID 01/20/23 01/20/23 hydrocodone 10 mg-acetaminophen See Rx Instructions PO Q12H PRN 01/20/23 01/20/23 325 mg tablet Allergies Allergy/AdvReac Type Severity Reaction Status Date / Time leflunomide Allergy Severe Hand Verified 01/20/23 08:15 Neuropathy clarithromycin AdvReac Mild nausea, Verified 01/20/23 08:15 sick Review of Systems Review of Systems: All systems reviewed & are unremarkable except as noted in HPI and below Constitutional: Constitutional: Reports as per HPI, Reports no additional constitutional complaints, Denies chills, Denies fever(s) and Reports weakness Eyes: Eyes: Reports as per HPI and Reports no additional eye complaints ENT: Reports system reviewed and no additional complaints, except as documented Cardiovascular: Cardiovascular: Reports as per HPI and Reports no additional cardiovascular complaints Respiratory: Respiratory: Reports as per HPI and Reports no additional respiratory complaints Gastrointestinal: Gastrointestinal: Reports as per HPI and Reports no additional gastrointestinal complaints Genitourinary: Genitourinary: Reports no additional female genitourinary complaints Musculoskeletal: Musculoskeletal: Reports no additional musculoskeletal complaints Integumentary/Breasts: Skin/Breast: Reports system reviewed and no additional complaints, except as docu Neurologic: Reports system reviewed and no additional complaints, except as documented, Reports as per HPI, Reports numbness and Reports weakness Comments: peripheral neuropathy, burning pain in arms Psychiatric: Psychiatric: Reports no additional psychiatric complaints Endocrine: Endocrine: Reports no additional endocrine complaints Hematologic/Lymphatic: Hematologic/Lymphatic: Reports no additional hematologic/lymphatic complaints Allergic/Immunologic: Allergic/Immunologic: Reports no additional allergic/immunologic complaints [facility] Past Medical History Medical History ADD (attention deficit disorder) Adenomatous colon polyp Chest pain Choking due to food (regurgitated) Chronic headaches Complications of gastric bypass surgery Constipation Degenerative disk disease Dysphagia Emphysema, unspecified GERD (gastroesophageal reflux disease) Interstitial lung disease Lung nodule Lymphedema Pernicious anemia Psoriatic arthritis Rhinosinusitis Scleroderma SOB (shortness of breath) on exertion Tobacco consumption Total fracture of alveolus of maxilla Surgical History Surgical History Gastric bypass status for obesity H/O abdominoplasty H/O breast augmentation H/O gastric bypass H/O tubal ligation History of mandibular surgery jaw joint replacement 2010 History of neck surgery Hx laparoscopic cholecystectomy Hx of cholecystec
[2023-02-01] MEDS: methylPREDNISolone ACETATE 40 MG/ML VIAL 80 MG IM (21:08)
[2023-02-01] MEDS: HYDROmorphone HCL INJ (*CRX) 2 MG/ML VIAL IM (21:09)
[2023-02-01 21:13] LABS: Basophils Absolute Auto 0.06 K/mm3 (0.00-0.10); Basophils Percent Auto 0.7 % (0.0-1.0); Eosinophils Absolute Auto 0.11 K/mm3 (0.02-0.50); Eosinophils Percent Auto 1.2 % (1.0-6.0); Hemoglobin 11.8 g/dL (12.0-15.0); Immature Granulocyte Absolute 0.03 K/mm3 (0.00-0.00); Immature Granulocyte Percent A 0.3 % (0.0-0.0); Lymphocytes Absolute Auto 2.68 K/mm3 (1.10-4.50); Lymphocytes Percent Auto 30.4 % (18.0-42.0); Mean Corpuscular HGB Conc 31.1 g/dL (32.0-36.0); Mean Corpuscular Volume 83.7 fL (78.0-102.0); Mean Platelet Volume 8.4 fl (9.2-11.8); Monocytes Absolute Auto 0.94 K/mm3 (0.10-0.90); Monocytes Percent Auto 10.6 % (2.0-11.0); Neutrophils Percent Auto 56.8 % (50.0-70.0); Platelet Count Result 402 K/mm3 (150-420); Red Blood Count 4.54 M/mm3 (4.20-5.40); Red Cell Distribution Width 17.7 % (11.6-14.4); White Blood Count 8.8 K/mm3 (4.8-10.8)
[2023-02-01 21:27] LABS: Alanine Aminotransferase 20 U/L (14-59); Albumin Level 3.3 g/dL (3.4-5.0); Alkaline Phosphatase 142 U/L (46-116); Anion Gap 8 mmol/L (8-16); Aspartate Amino Transferase 19 U/L (15-37); Bilirubin,Total 0.2 mg/dL (0.00-1.00); Blood Urea Nitrogen 24 mg/dL (7-18); Carbon Dioxide 27 mmol/L (21-32); Chloride 107 mmol/L (98-108); Estimated CRCL calculation 82 ml/min; Estimated Glomerular Filt Rate > 60; Glucose 76 mg/dL (70-99); Osmolality Calculated 297 mOsm/kg (285-295); Potassium 4.3 mmol/L (3.5-5.1); Sodium 142 mmol/L (136-145); Total Protein 6.5 g/dL (6.4-8.2)
[2023-02-01 22:07] VITALS: BP 150/77; PULSE 78; RESP 18; TEMP 36.6; O2SAT 97
== END 2023-02-01 22:11 | disposition home or self-care (01) ==
PROVIDERS: Emergency Provider Emergency Medicine; PCP Physician Assistant Medical
DX: M48.02 Spinal stenosis, cervical region (principal); G62.9 Polyneuropathy, unspecified; Z87.891 Personal history of nicotine dependence
CPT/HCPCS: 36415; 80053; 85025; 96372; 99284; J1030; J1170

== ENCOUNTER 2023-06-09 12:02 | Outpatient (CLI) | payer BC, SELFPAY ==
[2023-06-09 12:57] LABS: Anion Gap 7 mmol/L (8-16); Blood Urea Nitrogen 21 mg/dL (7-18); Calcium 9.1 mg/dL (8.5-10.1); Carbon Dioxide 29 mmol/L (21-32); Chloride 102 mmol/L (98-108); Estimated Glomerular Filt Rate > 60; Glucose 114 mg/dL (70-99); Osmolality Calculated 290 mOsm/kg (285-295); Potassium 4.1 mmol/L (3.5-5.1); Sodium 138 mmol/L (136-145)
== END 2023-06-09 12:03 | disposition home or self-care (01) ==
LOC: CHSLAB 12:04
PROVIDERS: PCP Physician Assistant Medical; Visit Provider Anesthesiology
DX: Z01.818 Encounter for other preprocedural examination (principal); Z79.899 Other long term (current) drug therapy
CPT/HCPCS: 36415; 80048

== ENCOUNTER 2023-06-11 00:29 | Day surgery (SDC) | payer BC, SELFPAY ==
[2023-06-01 11:02] VITALS: BMI 28.1
--- NOTE | 2023-06-01 11:12 | PC.NURSE ---
Report to the Outpatient Waiting Room, entrance under the green pavilion located off [facility], at time 0600 on date 06/11/23. Planned Procedure Time: 0730. Time changes happen often and if your time is changed the preop area will call you the afternoon before. - You and your visitor will be asked to self-screen and do not enter if you have any COVID symptoms. - A mask is optional within the hospital at this time. Patients may have clear liquids (water, carbonated beverages, clear teas, apple juice) until 8 hours prior to surgery with a maximum of 20 ounces. - No food from midnight until time of surgery Take the following medications with a SIP of water the morning of surgery: BUSPIRONE. GABAPENTIN, TAPENTADOL DO NOT STOP ANY OF YOUR OTHER PRESCRIPTION MEDICATIONS PRIOR TO SURGERY ?EXCEPT THE FOLLOWING Medications to discontinue per physician: VITAMIN Date to take last dose: 06/07/23 Please no make-up, nail burmese, hairspray, perfume, deodorant, or body powder the day of surgery. No jewelry (including any body piercings) or valuables the day of surgery, leave them at home. Please take a shower or bath the night before, or the morning of, surgery with an antibacterial soap. Wear comfortable, loose fitting clothing. - Jewelry must be removed prior to entering the operating room. Rings and piercings that are not removed may be cut off. - The hospital will not accept responsibility for valuables. - Please leave all valuables, including medications, at home the day of surgery. If you are going home after surgery, a licensed regional driver must drive you home. - NO public transportation without another adult if you receive anesthesia. - We recommend that an adult stay with you for 24 hours following discharge. - We also recommend that you do not drive, make important decision, drink alcoholic beverages, or take any drugs that were not prescribed by your health care provider for at least 24 hours after your discharge time. Follow any additional instructions given to you from your surgeon. If you or anyone in your household have experienced Covid symptoms in the past week, please notify your surgeon or the nurse liaison at the phone number below for possible testing. Telephone instructions given to PT - GADIEL KRAFT and asked if any additional questions and then verbalized understanding. Patient advised to call surgeon office or pre surgery nurse liaison [phone] if any additional questions.
[2023-06-11 06:13] VITALS: BP 125/66; PULSE 96; RESP 18; TEMP 36.4; O2SAT 96
[2023-06-11] MEDS: LACTATED RINGERS 1,000 ML 30 ML IV CONT (06:30)
--- NOTE | 2023-06-11 06:49 | WPDHPUPDATE1 ---
History and Physical Update Update Date/Time: 06/11/23 06:49 Patient seen and examined in pre-operative holding area. No interval change in medical history or symptoms other than noting she has started experiencing painful locking of her left middle finger. . Patient recalls previous discussion of benefits and alternatives to procedure. Continues to desire to proceed with left ectr poss open. Reviewed procedure, post-op expectations and risks including but not limited to bleeding, infection, injury to tendon/nerve/vessel, decreased hand function, stiffness, RSD, no change or worsening of symptoms. I discussed the possible use of assistants and their participation in the case. Patient stated understanding and signed the consent form wishing to proceed. discussed impression and Dx of likley trigger finger. discussed conservative and surgical treatment options. Discussed steroid injection, indications, expectations and risks. risks including but not limited to bleeding, bruising, pain, pigmentation changes at injection site and change in blood sugar. pt would like to proceed with left middle flexor sheath steroid injection and signed consent wishing to proceed
--- NOTE | 2023-06-11 06:50 | W.PM.PROC2 ---
Procedure Note - Detailed Date of Procedure 06/11/23 Pre-op Diagnosis left carpal tunnel syndrome and left middle trigger finger Post-op Diagnosis Same Procedure Performed left ectr and steroid injection left middle trigger finger Surgeon Candy Matute MD [employer] Analyst javid leiva pa-c Anesthesia MAC Description of Procedure ENDOSCOPIC CARPAL TUNNEL RELEASE INFORMED CONSENT: The patient was seen and examined and marked in the pre-op area.? The patient signed the consent form. PROCEDURE IN DETAIL:The patient taken back to OR on the stretcher in supine position. Time out performed with anesthesia, surgeon and staff agreeing on patient's name site and surgery to be performed SCDs were placed on the lower extremities and inflated. A tourniquet was placed on {right/left} upper extremity and antibiotics given IV After anesthesia administered sedation I injected {4}cc 1%lido with epi and 0.5% marcaine plain at the operative site The?{right upper extremity/left upper extremity}?was prepped and draped in sterile fashion the??{right upper extremity/left upper extremity} was? exsanguinated with Esmarch bandage and tourniquet inflated to 250mmHg I made a transverse incision in the {left/right} volar distal wrist crease through skin and dermis with 15 blade scalpel.? Littler scissors spread down to antebrachial fascia. A small incision was made in antebrachial fascia allowing access to Carpal tunnel. I proceeded with sequential dilation staying in line with the ring finger and hugging the hook of the hamate.? I then used the synovial elevator to free any adhesions from the underside of the transverse carpal ligament. Next I was able to insert the Microaire endoscopic carpal tunnel device with direct visualization of the transverse fibers on the monitor and proceeded with complete segmental retrograde release of the ligament in its entirety.? I irrigated with normal saline and closed with 4-0 monocryl for dermis and subcuticular closure. Next I proceeded with injecting 0.3cc 1%lidocaine plain and 0.7cc Betamethasone 6mg/ml into the left middle finger flexor sheath around a1 gilbert A dressing of Dermabond, 4x4, zelda, and a volar splint was applied for patient safety, security, and comfort and secured with an joaquín bandage after the tourniquet was let down noting the hand was warm and well perfused. The patient was then awaken from anesthesia and transferred to the recovery room in stable condition.? Complications - none EBL- 0cc Disposition - home in stable conditions Javid Leiva PA-C was essential for positioning, retraction, closure and dressing placement [facility] Billing Surgery - Charge Forward: Surgery Billing ([id number]. [id number] for Javid)
--- NOTE | 2023-06-11 06:51 | WPDANESEPPF ---
Anes - Initial Pre Proc Eval Procedure: Operation Date: 06/11/23 07:30 Proposed Procedures p Left Endoscopic Carpal Tunnel Release, Possible Open - Candy Matute MD Date/Time: 06/11/23 06:51 Surgeon: Candy Matute MD Pre Op Diagnosis: left carpal tunnel syndrome Patient Data Age: 52 Gender: F Height: 1.7 m Weight: 72.5 kg Last Vital Signs Temp 36.4 C 06/11/23 06:13 Pulse 96 06/11/23 06:13 Resp 18 06/11/23 06:13 BP 125/66 06/11/23 06:13 Pulse Ox 96 06/11/23 06:13 O2 Del Method Room Air 06/11/23 06:13 Allergies Allergy/AdvReac Type Severity Reaction Status Date / Time leflunomide Allergy Severe Hand Verified 06/11/23 06:14 Neuropathy clarithromycin AdvReac Mild nausea, Verified 06/11/23 06:14 sick Home Medications Medication Instructions Recorded Confirmed Type tizanidine 4 mg tablet 4 mg PO BID PRN Spasms 11/06/21 06/11/23 History multivitamin 1 tablet PO DAILY #60 tabs 03/05/22 06/11/23 Rx nortriptyline 10 mg capsule 20 mg PO QHS #60 caps 05/10/23 06/11/23 Rx (Pamelor) gabapentin 600 mg tablet 900 mg PO TID #135 tabs 05/13/23 06/11/23 Rx dexmethylphenidate 10 mg tablet 10 mg PO QPM #30 tabs 05/24/23 06/11/23 Rx (Focalin) buspirone 7.5 mg tablet See Rx Instructions .Route 05/26/23 06/11/23 Rx .COMPLEX #180 tabs dexmethylphenidate 30 mg 30 mg PO QAM #30 ea 05/28/23 06/11/23 Rx capsule,extended release [id number] (Focalin XR) furosemide 20 mg tablet See Rx Instructions .Route 06/04/23 06/11/23 Rx .COMPLEX #90 tabs hydrocodone 10 mg-acetaminophen See Rx Instructions PO Q12H PRN 06/09/23 06/11/23 Rx 325 mg tablet pain #100 tabs Patient hx anesthesia problems: none Family hx anesthesia problems: none Results Review: All pre-operative results and documents have been reviewed as part of the pre-operative evaluation. [facility] Past Medical History Medical History ADD (attention deficit disorder) Adenomatous colon polyp Chest pain Choking due to food (regurgitated) Chronic headaches Complications of gastric bypass surgery Constipation Degenerative disk disease Dysphagia Emphysema, unspecified GERD (gastroesophageal reflux disease) Interstitial lung disease Lung nodule Lymphedema Pernicious anemia Psoriatic arthritis Rhinosinusitis Scleroderma SOB (shortness of breath) on exertion Tobacco consumption Total fracture of alveolus of maxilla Surgical History Surgical History Gastric bypass status for obesity H/O abdominoplasty H/O breast augmentation H/O gastric bypass H/O tubal ligation History of mandibular surgery jaw joint replacement 2009 History of neck surgery Hx laparoscopic cholecystectomy Hx of cholecystectomy Hx of decompressive lumbar laminectomy Family History Family History Father Carcinoma, lung Grandparent Carcinoma of stomach Grandparent Carcinoma of stomach Other Arthritis Hypertension Social History Social History Smoking packs per day: 0.75 Smoking cigarettes per day: 15.0 Years smoked: 8 Smoking pack-years: 6.00 Smoking status: Former smoker Tobacco type: cigarettes Second hand tobacco smoke exposure: Yes Smoking end date: 06/07/18 Alcohol intake: never Alcohol use details: OCCATIONALLY Substance use: never Substance use type: does not use Lack of Transportation: No Lack of Food: Never True Current Housing: I Have Housing Concerned About Future Housing: No Difficulty Paying Gas/Electric Bills: No Difficulty Paying for Meds: No Currently Unemployed: No Education: Master's Degree or Higher Living arrangements: alone Occupation/Education: occupation Gender identity (if verbalized by the patient): Female Sexual Orienta
[2023-06-11] MEDS: ceFAZolin 2 GM/D5W 50 ML 2 GM/50 ML BAG IVPB (07:32)
[2023-06-11 07:53] VITALS: BP 97/68; PULSE 91; RESP 14; O2SAT 99
[2023-06-11] MEDS: LIDO 1%/EPINEPHRINE 1:100,000 50 ML VIAL 6 ML INFILTRATE (07:56)
[2023-06-11] MEDS: BETAMETHASONE SOD PHOS/ACETATE 30 MG/5 ML VIAL 24 MG IM (07:56)
--- NOTE | 2023-06-11 08:40 | SUR.PHASEII ---
0834: RN called complex human resources manager to come and take over on patient because the patient was being disrespectful to RN when she was trying to help her.
[2023-06-11 08:45] VITALS: PULSE 86; RESP 20; O2SAT 99
--- NOTE | 2023-06-11 09:22 | SUR.PHASEII ---
0900 this RN resume care patient was upset with previous RN, states just wants to go home so she can take her normal pain medication, states angry that BP cuff is so tight when it goes off refuses to allow any more. all extremities pink warm good cap refill noted to fingers on left hand. patient states happy now that will be discharged, family in room agrees with plan.
== END 2023-06-11 09:00 | disposition home or self-care (01) ==
PROVIDERS: PCP Physician Assistant Medical; Visit Provider Plastic Surgery
PROC: 01N54ZZ Release Median Nerve, Percutaneous Endoscopic Approach (ICD-10-PCS; CPT 29848; principal; 2023-06-11 07:30)
DX: G56.02 Carpal tunnel syndrome, left upper limb (principal); M65.332 Trigger finger, left middle finger; F98.8 Other specified behavioral and emotional disorders with onset usually occurring in childhood and adolescence; Z98.84 Bariatric surgery status; Z87.891 Personal history of nicotine dependence
CPT/HCPCS: 29848; 20551; J0690; J0702; J2405; J2704; J3010; J7120

== ENCOUNTER 2023-08-26 02:23 | Day surgery (SDC) | payer BC, SELFPAY ==
[2023-08-24 08:38] VITALS: BMI 28.4
--- NOTE | 2023-08-24 08:39 | PC.NURSE ---
Report to the Outpatient Waiting Room, entrance under the green pavilion located off [facility], at time 0830 on date 08/26/23. Planned Procedure Time: 1030. Time changes happen often and if your time is changed the preop area will call you the afternoon before. - You and your visitor will be asked to self-screen and do not enter if you have any COVID symptoms. - A mask is optional within the hospital at this time. - No food OR DRINK from midnight until time of surgery Take the following medications with a SIP of water the morning of surgery: BUSPIRONE (IF NEEDED), GABAPENTIN, HYDROCODONE (IF NEEDED) DO NOT STOP ANY OF YOUR OTHER PRESCRIPTION MEDICATIONS PRIOR TO SURGERY ?EXCEPT THE FOLLOWING Medications to discontinue per physician: VITAMINS Date to take last dose: NO MORE UNTIL AFTER SURGERY Please no make-up, nail wolof, hairspray, perfume, deodorant, or body powder the day of surgery. No jewelry (including any body piercings) or valuables the day of surgery, leave them at home. Please take a shower or bath the night before, or the morning of, surgery with an antibacterial soap. Wear comfortable, loose fitting clothing. - Jewelry must be removed prior to entering the operating room. Rings and piercings that are not removed may be cut off. - The hospital will not accept responsibility for valuables. - Please leave all valuables, including medications, at home the day of surgery. If you are going home after surgery, a licensed truck driver supervisor must drive you home. - NO public transportation without another adult if you receive anesthesia. - We recommend that an adult stay with you for 24 hours following discharge. - We also recommend that you do not drive, make important decision, drink alcoholic beverages, or take any drugs that were not prescribed by your health care provider for at least 24 hours after your discharge time. Follow any additional instructions given to you from your surgeon. If you or anyone in your household have experienced Covid symptoms in the past week, please notify your surgeon or the nurse liaison at the phone number below for possible testing. Telephone instructions given to PT - GADIEL and asked if any additional questions and then verbalized understanding. Patient advised to call surgeon office or pre surgery nurse liaison [phone] if any additional questions.
[2023-08-26] MEDS: LACTATED RINGERS 1,000 ML 30 ML IV CONT (08:52)
[2023-08-26 08:57] VITALS: BP 92/52; PULSE 88; RESP 20; TEMP 37.2; O2SAT 97
--- NOTE | 2023-08-26 08:58 | SUR.PREOP ---
Constant figiting. Patient says this is because she didn't sleep last night and is trying to stay awake. Many complaints.
--- NOTE | 2023-08-26 09:41 | WPDANESEPPF ---
Anes - Initial Pre Proc Eval Procedure: Operation Date: 08/26/23 10:30 Proposed Procedures p Right Endoscopic Carpal Tunnel Release, Possible Open - Candy Matute MD Date/Time: 08/26/23 09:41 Surgeon: Candy Matute MD Pre Op Diagnosis: right carpal tunnel syndrome Patient Data Age: 52 Gender: F Height: 1.65 m Weight: 77.5 kg Last Vital Signs Temp 37.2 C 08/26/23 08:57 Pulse 88 08/26/23 08:57 Resp 20 08/26/23 08:57 BP 92/52 L 08/26/23 08:57 Pulse Ox 97 08/26/23 08:57 O2 Del Method Room Air 08/26/23 08:57 Allergies Allergy/AdvReac Type Severity Reaction Status Date / Time clarithromycin AdvReac Mild nausea, Verified 08/26/23 08:35 sick Home Medications Medication Instructions Recorded Confirmed Type multivitamin 1 tablet PO DAILY #60 tabs 03/05/22 08/24/23 Rx nortriptyline 10 mg capsule 20 mg PO QHS #60 caps 05/10/23 08/24/23 Rx (Pamelor) gabapentin 600 mg tablet 900 mg PO TID #135 tabs 05/13/23 08/24/23 Rx buspirone 7.5 mg tablet See Rx Instructions .Route 05/26/23 08/24/23 Rx .COMPLEX #180 tabs furosemide 20 mg tablet See Rx Instructions .Route 06/04/23 08/24/23 Rx .COMPLEX #90 tabs ondansetron 4 mg disintegrating 4 mg PO Q8H PRN nausea and 06/17/23 08/24/23 Rx tablet vomiting #20 tabs tizanidine 4 mg tablet 4 mg PO BID PRN Spasms #60 tabs 08/16/23 08/24/23 Rx dexmethylphenidate 10 mg tablet 10 mg PO QPM #30 tabs 08/23/23 08/24/23 Rx (Focalin) dexmethylphenidate 30 mg 30 mg PO QAM #30 ea 08/23/23 08/24/23 Rx capsule,extended release [id number] (Focalin XR) hydrocodone 10 mg-acetaminophen See Rx Instructions PO Q6H PRN 08/23/23 08/24/23 Rx 325 mg tablet pain #72 tabs Patient hx anesthesia problems: none Family hx anesthesia problems: none Results Review: All pre-operative results and documents have been reviewed as part of the pre-operative evaluation. [facility] Past Medical History Medical History ADD (attention deficit disorder) Adenomatous colon polyp Chest pain Choking due to food (regurgitated) Chronic headaches Complications of gastric bypass surgery Constipation Degenerative disk disease Dysphagia Emphysema, unspecified GERD (gastroesophageal reflux disease) Interstitial lung disease Lung nodule Lymphedema Pernicious anemia Psoriatic arthritis Rhinosinusitis Scleroderma SOB (shortness of breath) on exertion Tobacco consumption Total fracture of alveolus of maxilla Surgical History Surgical History Gastric bypass status for obesity H/O abdominoplasty H/O breast augmentation H/O gastric bypass H/O tubal ligation History of mandibular surgery jaw joint replacement 2009 History of neck surgery Hx laparoscopic cholecystectomy Hx of cholecystectomy Hx of decompressive lumbar laminectomy Family History Family History Father Carcinoma, lung Grandparent Carcinoma of stomach Grandparent Carcinoma of stomach Other Arthritis Hypertension Social History Social History Smoking packs per day: 0.75 Smoking cigarettes per day: 15.0 Years smoked: 8 Smoking pack-years: 6.00 Smoking status: Former smoker Tobacco type: cigarettes Second hand tobacco smoke exposure: Yes Smoking end date: 06/07/18 Alcohol intake: never Alcohol use details: OCCATIONALLY Substance use: never Substance use type: does not use Lack of Transportation: No Lack of Food: Never True Current Housing: I Have Housing Concerned About Future Housing: No Difficulty Paying Gas/Electric Bills: No Difficulty Paying for Meds: No Currently Unemployed: No Education: Master's Degree or Higher Living arrangements: alone Occupation/Education: occupation Gender identity (if verbalized
--- NOTE | 2023-08-26 10:09 | PM.HPGS ---
History of Present Illness History of Present Illness Chief complaint: right carpal tunnel syndrome Narrative: Patient seen and examined in pre-operative holding area. No interval change in medical history or symptoms. Patient recalls previous discussion of benefits and alternatives to procedure. Continues to desire to proceed with right endoscopic possible open carpal tunnel release. Reviewed procedure, post-op expectations and risks including but not limited to bleeding, infection, injury to tendon/nerve/vessel, decreased hand function, stiffness, RSD, no change or worsening of symptoms. I discussed the possible use of assistants and their participation in the case. Patient stated understanding and signed the consent form wishing to proceed. Review of Systems Review of Systems: All systems reviewed & are unremarkable except as noted in HPI and below PMFSH Past Medical History Medical History ADD (attention deficit disorder) Adenomatous colon polyp Chest pain Choking due to food (regurgitated) Chronic headaches Complications of gastric bypass surgery Constipation Degenerative disk disease Dysphagia Emphysema, unspecified GERD (gastroesophageal reflux disease) Interstitial lung disease Lung nodule Lymphedema Pernicious anemia Psoriatic arthritis Rhinosinusitis Scleroderma SOB (shortness of breath) on exertion Tobacco consumption Total fracture of alveolus of maxilla Surgical History Surgical History Gastric bypass status for obesity H/O abdominoplasty H/O breast augmentation H/O gastric bypass H/O tubal ligation History of mandibular surgery jaw joint replacement 2009 History of neck surgery Hx laparoscopic cholecystectomy Hx of cholecystectomy Hx of decompressive lumbar laminectomy Family History Family History Father Carcinoma, lung Grandparent Carcinoma of stomach Grandparent Carcinoma of stomach Other Arthritis Hypertension Social History Social History Smoking packs per day: 0.75 Smoking cigarettes per day: 15.0 Years smoked: 8 Smoking pack-years: 6.00 Smoking status: Former smoker Tobacco type: cigarettes Second hand tobacco smoke exposure: Yes Smoking end date: 06/07/18 Alcohol intake: never Alcohol use details: OCCATIONALLY Substance use: never Substance use type: does not use Lack of Transportation: No Lack of Food: Never True Current Housing: I Have Housing Concerned About Future Housing: No Difficulty Paying Gas/Electric Bills: No Difficulty Paying for Meds: No Currently Unemployed: No Education: Master's Degree or Higher Living arrangements: alone Occupation/Education: occupation Gender identity (if verbalized by the patient): Female Sexual Orientation (if Verbalized by the Patient): Straight or Heterosexual Spiritual care concerns: No Meds Home Medications and Allergies Home Medications Medication Instructions Recorded Confirmed Type multivitamin 1 tablet PO DAILY #60 tabs 03/05/22 08/24/23 Rx nortriptyline 10 mg capsule 20 mg PO QHS #60 caps 05/10/23 08/24/23 Rx (Pamelor) gabapentin 600 mg tablet 900 mg PO TID #135 tabs 05/13/23 08/24/23 Rx buspirone 7.5 mg tablet See Rx Instructions .Route 05/26/23 08/24/23 Rx .COMPLEX #180 tabs furosemide 20 mg tablet See Rx Instructions .Route 06/04/23 08/24/23 Rx .COMPLEX #90 tabs ondansetron 4 mg disintegrating 4 mg PO Q8H PRN nausea and 06/17/23 08/24/23 Rx tablet vomiting #20 tabs tizanidine 4 mg tablet 4 mg PO BID PRN Spasms #60 tabs 08/16/23 08/24/23 Rx dexmethylphenidate 10 mg tablet 10 mg PO QPM #30 tabs 08/23/23 08/24/23 Rx (Focalin) dexmethylphenidate 30 mg 30 mg PO QAM #30 ea 08/23/23 08/24/23 Rx capsule,extended release [id number] (Focali
--- NOTE | 2023-08-26 10:10 | W.PM.PROC2 ---
Procedure Note - Detailed Date of Procedure 08/26/23 Pre-op Diagnosis right carpal tunnel syndrome Post-op Diagnosis Same Procedure Performed right ectr Surgeon Candy Matute MD Machine Shop Apprentice Tonie Brink PA-C Anesthesia [facility] Description of Procedure INFORMED CONSENT: The patient was seen and examined and marked in the pre-op area.? The patient signed the consent form. PROCEDURE IN DETAIL:The patient taken back to OR on the stretcher in supine position. Time out performed with anesthesia, surgeon and staff agreeing on patient's name site and surgery to be performed SCDs were placed on the lower extremities and inflated. A tourniquet was placed on {right} upper extremity and antibiotics given IV After anesthesia administered sedation I injected {5}cc 1%lido with epi and 0.5% marcaine plain at the operative site The?{right upper extremity}?was prepped and draped in sterile fashion the??{right upper extremity} was? exsanguinated with Esmarch bandage and tourniquet inflated to 250mmHg I made a transverse incision in the {right} volar distal wrist crease through skin and dermis with 15 blade scalpel.? Littler scissors spread down to antebrachial fascia. A small incision was made in antebrachial fascia allowing access to Carpal tunnel. I proceeded with sequential dilation staying in line with the ring finger and hugging the hook of the hamate.? I then used the synovial elevator to free any adhesions from the underside of the transverse carpal ligament. Next I was able to insert the Microaire endoscopic carpal tunnel device with direct visualization of the transverse fibers on the monitor and proceeded with complete segmental retrograde release of the ligament in its entirety.? I irrigated with normal saline and closed with 4-0 monocryl for dermis and subcuticular closure. A dressing of Dermabond, 4x4, zelda, and a volar splint was applied for patient safety, security, and comfort and secured with an joaquín bandage after the tourniquet was let down noting the hand was warm and well perfused. The patient was then awaken from anesthesia and transferred to the recovery room in stable condition.? Complications - none EBL- 0cc Disposition - home in stable conditions Tonie Brink PA-C was essential for positioning, retraction, closure and dressing placement [facility] Billing Surgery - Charge Forward: Surgery Billing ([id number])
[2023-08-26] MEDS: ceFAZolin 2 GM/D5W 50 ML 2 GM/50 ML BAG IVPB (10:44)
[2023-08-26] MEDS: LIDO 1%/EPINEPHRINE 1:100,000 50 ML VIAL 10 ML INFILTRATE (10:54)
[2023-08-26 11:06] VITALS: BP 100/41; PULSE 89; RESP 16; O2SAT 94
[2023-08-26 11:30] VITALS: BP 101/47; PULSE 66; RESP 14
[2023-08-26 12:00] VITALS: BP 106/58; PULSE 60; RESP 14
[2023-08-26 12:30] VITALS: BP 110/60; PULSE 62; RESP 14
[2023-08-26 12:49] VITALS: BP 102/58; PULSE 60; RESP 14
== END 2023-08-26 12:51 | disposition home or self-care (01) ==
PROVIDERS: PCP Physician Assistant Medical; Visit Provider Plastic Surgery
PROC: 01N54ZZ Release Median Nerve, Percutaneous Endoscopic Approach (ICD-10-PCS; CPT 29848; principal; 2023-08-26 10:30)
DX: G56.01 Carpal tunnel syndrome, right upper limb (principal); F98.8 Other specified behavioral and emotional disorders with onset usually occurring in childhood and adolescence; Z98.84 Bariatric surgery status; Z87.891 Personal history of nicotine dependence
CPT/HCPCS: 29848; J0690; J2250; J2704; J3010; J7120

== ENCOUNTER 2023-09-12 07:15 | Emergency (ER) | payer BC, SELFPAY ==
--- NOTE | ~2023-09-12 | CT_ITS ---
EXAMINATION: CT cervical spine wo con DATE: 09/12/2023 07:46 INDICATION: Cervical pain TECHNIQUE: Computed tomography (CT) of the cervical spine was performed without intravenous contrast. Automated exposure control and iterative reconstruction technique were employed. Exam dose: 255.52 mGy-cm total exam DLP. COMPARISON: None FINDINGS: There is reversal cervical curvature which may be due to positioning and/or muscle spasm. C1 and C2 are normally aligned and the odontoid process is intact. Status post anterior and interbody surgical fusion at C5-6. There is moderate degenerative disc disease at the remaining levels, most prominent at C6-7. Prominen t uncovertebral joint spurring is noted as well at C6-7. No fracture or dislocation or locked facet or prevertebral soft tissue swelling.. IMPRESSION: Reversal cervical curvature which may be due to muscle spasm Status post anterior and interbody surgical fusion at C5-6 Moderate cervical spondylosis Reviewed, dictated and finalized at [facility]. Reviewed, dictated and finalized at [facility].
[2023-09-12 07:15] VITALS: PULSE 104; RESP 20; TEMP 36.6; O2SAT 99
--- NOTE | 2023-09-12 07:27 | ED.NECK ---
HPI - Neck Pain/Injury General Chief Complaint: Neck Pain/Injury Stated Complaint: neck pain Time Seen by Provider: 09/12/23 07:27 Source: patient Mode of arrival: ambulatory Limitations: no limitations History of Present Illness HPI Narrative: Patient is a 53-year-old female with chronic cervical spine neck problems and pain. She is here with acute flare of her neck pain. She also has bilateral upper extremity peripheral neuropathy pains. no injuries. complaint: neck pain Onset (ago): day(s) (1) Place: home Radiation: occiput, upper back, right upper extremity and left upper extremity Severity: severe and similar to prior neck pain Severity scale (1-10): 10 Quality: burning and sharp Duration: constant Relieving factors: none Exacerbating factors: movement of extremity and movement of neck Context: other ( Chronic cervical spine pain after prior surgeries and medication trials) Associated symptoms: none Treatments prior to arrival: prescription analgesic ( patient has [facility] at home and tizanidine) Related Data Allergies Allergy/AdvReac Type Severity Reaction Status Date / Time clarithromycin AdvReac Mild nausea, Verified 09/12/23 07:39 sick Review of Systems Review of Systems: All systems reviewed & are unremarkable except as noted in HPI and below Constitutional: Constitutional: Reports no additional constitutional complaints Eyes: Eyes: Reports no additional eye complaints ENT: Reports system reviewed and no additional complaints, except as documented Cardiovascular: Cardiovascular: Reports no additional cardiovascular complaints Respiratory: Respiratory: Reports no additional respiratory complaints Gastrointestinal: Gastrointestinal: Reports no additional gastrointestinal complaints Genitourinary: Genitourinary: Reports no additional female genitourinary complaints Musculoskeletal: Musculoskeletal: Reports no additional musculoskeletal complaints Integumentary/Breasts: Skin/Breast: Reports system reviewed and no additional complaints, except as docu Neurologic: Reports system reviewed and no additional complaints, except as documented Psychiatric: Psychiatric: Reports no additional psychiatric complaints Endocrine: Endocrine: Reports no additional endocrine complaints Hematologic/Lymphatic: Hematologic/Lymphatic: Reports no additional hematologic/lymphatic complaints Allergic/Immunologic: Allergic/Immunologic: Reports no additional allergic/immunologic complaints PMFSH Past Medical History Medical History ADD (attention deficit disorder) Adenomatous colon polyp Chest pain Choking due to food (regurgitated) Chronic headaches Complications of gastric bypass surgery Constipation Degenerative disk disease Dysphagia Emphysema, unspecified GERD (gastroesophageal reflux disease) Interstitial lung disease Lung nodule Lymphedema Pernicious anemia Psoriatic arthritis Rhinosinusitis Scleroderma SOB (shortness of breath) on exertion Tobacco consumption Total fracture of alveolus of maxilla Surgical History Surgical History Gastric bypass status for obesity H/O abdominoplasty H/O breast augmentation H/O gastric bypass H/O tubal ligation History of mandibular surgery jaw joint replacement 2010 History of neck surgery Hx laparoscopic cholecystectomy Hx of cholecystectomy Hx of decompressive lumbar laminectomy Family History Family History Father Carcinoma, lung Grandparent Carcinoma of stomach Grandparent Carcinoma of stomach Other Arthritis Hypertension Social History Social History Smoking packs per day: 0.75 Smoking cigarettes per day: 15.0 Years smoked: 8 Smoking pack-years: 6.00 Smoking status: Former smoker Tobacco type: cigarettes Second
[2023-09-12] MEDS: ORPHENADRINE CITRATE 30 MG/ML 2 ML VIAL 60 MG IM (07:46)
[2023-09-12] MEDS: predniSONE 20 MG TABLET 60 MG PO (07:47)
[2023-09-12] MEDS: KETOROLAC (*BKC) 60 MG/2 ML VIAL IM (07:47)
[2023-09-12 08:35] VITALS: PULSE 75; RESP 16; O2SAT 99
== END 2023-09-12 08:35 | disposition home or self-care (01) ==
PROVIDERS: Emergency Provider Emergency Medicine; PCP Physician Assistant Medical
DX: M47.22 Other spondylosis with radiculopathy, cervical region (principal); F98.8 Other specified behavioral and emotional disorders with onset usually occurring in childhood and adolescence; K21.9 Gastro-esophageal reflux disease without esophagitis; Z98.84 Bariatric surgery status; Z87.891 Personal history of nicotine dependence
CPT/HCPCS: 72125; 96372; 99284; J1885; J2360; J7512

== ENCOUNTER 2023-10-22 08:55 | Outpatient (CLI) | payer BC, SELFPAY ==
--- NOTE | ~2023-10-22 | CT_ITS ---
EXAMINATION:CT diagnostic chest wo con DATE: 10/22/2023 09:19 INDICATION: Respiratory bronchiolitis interstitial lung disease. TECHNIQUE: Computed tomography (CT) of the chest was performed without intravenous contrast. Automate d exposure control and iterative reconstruction technique were employed. The dose-length product (DLP ) was 166.76 mGy-cm. COMPARISON: Chest CT 09/20/2021 FINDINGS: There is mild emphysema. Again seen are multiple 1 mm nodules in the lungs with an upper susana ng predominance, consistent with respiratory bronchiolitis interstitial lung disease. There are a few 2-3 mm nodules in the lungs. There is a stable 4 mm nodule in left lower lobe. No pleural effusion. The heart size is normal. No pericardial effusion. There are bilateral breast implants. There are amanda gical changes of the stomach. Surgical clips in the right upper quadrant are likely from cholecystect stepan. There are changes of anterior fusion procedure in cervical spine. There is mild thoracic spondyl osis. IMPRESSION: 1. Mild emphysema. Reviewed, dictated and finalized at [facility]. IMPRESSION: 1. Mild emphysema.
== END 2023-10-22 08:56 | disposition home or self-care (01) ==
LOC: ANHIMG 08:57
PROVIDERS: PCP Physician Assistant Medical; Visit Provider Internal Medicine Pulmonary Disease
DX: R91.8 Other nonspecific abnormal finding of lung field (principal); J84.115 Respiratory bronchiolitis interstitial lung disease; J43.9 Emphysema, unspecified
CPT/HCPCS: 71250

== ENCOUNTER 2024-10-19 13:06 | Outpatient (CLI) | payer BC, SELFPAY ==
--- NOTE | ~2024-10-19 | CT_ITS ---
CT Scan of the Chest without Contrast: Clinical Indication: Lung nodule Technique: Contiguous sections were acquired throughout the chest without intravenous contrast. Dose reduction technique was used on this scan by utilizing automated exposure control and iterative recon struction technique. The dose-length product (DLP) was 127.32 mGy-cm. COMPARISON: 10/22/2023 Findings: There is no evidence of any significant mediastinal, hilar or axillary lymphadenopathy. The mediastin al soft tissues appear normal. There is no evidence of pleural or pericardial effusion. There is a new irregular nodular consolidation in the peripheral right upper lobe measuring up to 1.7 cm in greatest dimension. There is mild to moderate emphysema. Images through the upper abdomen reveal no abnormalities. Impression: New irregular right upper lobe pulmonary nodule measuring up to 1.7 cm in diameter. This could reflec t neoplastic lesion versus possibly focal pneumonia. Consider short-term follow-up CT in 1-3 months, PET/CT, or tissue sampling to establish a histologic diagnosis. Mild to moderate emphysema. Reviewed, dictated and finalized at [facility]. Impression: New irregular right upper lobe pulmonary nodule measuring up to 1.[address] This could reflect neoplastic lesion versus possibly focal pneumonia. Cons ider short-term follow-up CT in 1-3 months, PET/CT, or tissue sampling to estab regan a histologic diagnosis. Mild to moderate emphysema.
--- OUTSIDE RECORDS SUMMARY | 2024-10-19 13:13 | XMS_ITS | Encounter Summary ---
Author Organization [facility] Address [address] [place] [address] Phone Care Team Providers Care Engraver Copperplate Name Role Phone Costa Sanchez MD Primary Care Provider [phone] Corinna Bain Primary Care Provider [phone] Miscellaneous, Not In File Unavailable Unava ilable Tariq Jain MD Unavailable [phone] Alison Swanson MD Unavailable [phone] Rima Carrizales NP Primary Care Provider Mercedez vailable Torri Ruiz MD Primary Care Provider Encounter Details Date Type Department Care Team (Late st Contact Info) Description 07/27/2020 Orders Only [facility] Scanning, Provider Social History Tobacco Use Types Packs/Day Years Used Date Smoking Tobacco: Every Day Cigarettes 0.1 7 Comments:quit one month ago Alcohol Use Standard Drinks/Week Comments Yes 0 (1 standard drink = 0.6 oz pur e alcohol) 2-3 times a month PHQ-2 Answer Date Recorded PHQ-2 Score 2 08/14/2019 Comments No Sex and Gender Information Value Date Recorded Sex Assigned at Not on file Legal Sex Female 8:12 AM CDT Gender Identity Not on file Sexual Orientation Not on file documented as of this encounter Plan of Treatment Not on file documented as of this encounter Procedures Procedure Name Priority Date/Time Associated Diagnosis Comments SCAN - RADIOLOGY/IMAGING 07/27/2020 documented in this encounter Results * SCAN - RADIOLOGY/IMAGING (07/27/2020) Anatomical Region Laterality Modality Other us Provider Scanning Edited Result - Final documented in this encounter Visit Diagnoses Not on filedocumented in this encounter Care Teams Engraver Copperplate Relationship Specialty Start Date End Date Costa Sanchez MD [address] [place] [address] PCP - General 10/19/16 12/14/22 Corinna Bain PA [address] [place] [address] PCP - General Family Practice 12/15/22 09/19/23 Rima Carrizales NP 1 [facility] [address] [place] [address] PCP - General Nurse Practitioner 09/20/23 07/31/24 Torri Ruiz MD [address] [place] [address] PCP - General Family Medicine 08/01/24 Miscellaneous, Not In File 01/13/23 Tariq Jain MD [address] [place] [address] Consulting Physician Neurosurgery 01/13/23 Alison Swanson MD [facility] [address] [place] [address] Referring Physician Sidehand 06/09/23 documented as of this encounter
--- OUTSIDE RECORDS SUMMARY | 2024-10-19 13:13 | XMS_ITS ---
Author Organization [facility] [place], [place] Address [address] [facility] [place], [place] [address] Care Team Providers Care Carpet Floor Layer Apprentice Name Role Phone USAMA ALBERTS Primary Care Provider Eliseo Plata Unavailable [phone] REASON FOR VISIT NO FURTHER APPTS PER PT Encounters Encounter Location Date Provider Diagnosis Lizy Tee [address] [address] 07/30/2023 Eliseo Bruce PLAN OF TREATMENT No Information
--- OUTSIDE RECORDS SUMMARY | 2024-10-19 13:13 | XMS_ITS | Encounter Summary ---
Author Organization [facility] Address [address] [place] [address] Phone Care Team Providers Care Consumer Electronics Merchandiser Name Role Phone Costa Sanchez MD Primary Care Provider [phone] Corinna Bain Primary Care Provider [phone] Miscellaneous, Not In File Unavailable Unava ilable Tariq Jain MD Unavailable [phone] Alison Swanson MD Unavailable [phone] Rima Carrizales NP Primary Care Provider Mercedez vailable Torri Ruiz MD Primary Care Provider Encounter Details Date Type Department Care Team (Late st Contact Info) Description 11/06/2020 Orders Only [facility] Scanning, Provider [...] Date/Time Associated Diagnosis Comments SCAN - RADIOLOGY/IMAGING 11/06/2020 documented in this encounter Results * SCAN - RADIOLOGY/IMAGING (11/06/2020) Anatomical Region Laterality Modality Other us Provider Scanning Final Result documented in this encounter Visit Diagnoses Not on filedocumented in this encounter Care Teams Consumer Electronics Merchandiser Relationship Specialty Start Date End Date Costa Sanchez MD [address] [place] [address] PCP - General 10/19/16 12/14/22 Corinna Bain PA [address] [place] [address] PCP - General Family Practice 12/15/22 09/19/23 Rima Carrizales NP 1 [facility] [address] [place] [address] PCP - General Nurse Practitioner 09/20/23 07/31/24 Torri Ruiz MD [address] [place] [address] PCP - General Family Medicine 08/01/24 Miscellaneous, Not In File 01/13/23 Tariq Jain MD [address] [place] [address] Consulting Physician Neurosurgery 01/13/23 Alison Swanson MD 1 [facility] [address] [place] [address] Referring Physician Clip Baker 06/09/23 documented as of this encounter
--- OUTSIDE RECORDS SUMMARY | 2024-10-19 13:13 | XMS_ITS | Encounter Summary ---
Author Organization [facility] Address [address] [place] [address] Phone Care Team Providers Care Finished Metal Repairer Name Role Phone Costa Sanchez MD Primary Care Provider [phone] Corinna Bain Primary Care Provider [phone] Miscellaneous, Not In File Unavailable Unava ilable Tariq Jain MD Unavailable [phone] Alison Swanson MD Unavailable Rima Carrizales NP Primary Care Provider Mercedez vailable Torri Ruiz MD Primary Care Provider Encounter Details Date Type Department Care Team (Late st Contact Info) Description 11/08/2020 Orders Only [facility] Scanning, Provider [...] Procedure Name Priority Date/Time Associated Diagnosis Comments PULMONARY - RESULT SCAN 11/08/2020 documented in this encounter Results * PULMONARY - RESULT SCAN (11/08/2020) Anatomical Region Laterality Modality Other us Provider Scanning Edited Result - Final documented in this encounter Visit Diagnoses Not on filedocumented in this encounter Care Teams Finished Metal Repairer Relationship Specialty Start Date End Date Costa Sanchez MD [address] [place] [address] PCP - General 10/19/16 12/14/22 Corinna Bain PA [address] [place] [address] PCP - General Family Practice 12/15/22 09/19/23 Rima Carrizales NP 1 [facility] [address] [place] [address] PCP - General Nurse Practitioner 09/20/23 07/31/24 Torri Ruiz MD [address] [place] [address] PCP - General Family Medicine 08/01/24 Miscellaneous, Not In File 01/13/23 Tariq Jain MD [address] [place] [address] Consulting Physician Neurosurgery 01/13/23 Alison Swanson MD 1 [facility] [address] [place] [address] Referring Physician Control Room Helper 06/09/23 documented as of this encounter
--- OUTSIDE RECORDS SUMMARY | 2024-10-19 13:13 | XMS_ITS | Encounter Summary ---
Author Organization [facility] Address [address] [place] [address] Phone Care Team Providers Care Toy Stuffer Name Role Phone Costa Sanchez MD Primary Care Provider [phone] Corinna Bain Primary Care Provider [phone] Miscellaneous, Not In File Unavailable Unava ilable Tariq Jain MD Unavailable [phone] Alison Swanson MD Unavailable [phone] Rima Carrizales NP Primary Care Provider Mercedez vailable Torri Ruiz MD Primary Care Provider Encounter Details Date Type Department Care Team (Late st Contact Info) Description 11/26/2020 Orders Only [facility] Scanning, Provider [...] Date/Time Associated Diagnosis Comments SCAN - RADIOLOGY/IMAGING 11/26/2020 documented in this encounter Results * SCAN - RADIOLOGY/IMAGING (11/26/2020) Anatomical Region Laterality Modality Other us Provider Scanning Final Result documented in this encounter Visit Diagnoses Not on filedocumented in this encounter Care Teams Toy Stuffer Relationship Specialty Start Date End Date Costa Sanchez MD [address] [place] [address] PCP - General 10/19/16 12/14/22 Corinna Bain PA [address] [place] [address] PCP - General Family Practice 12/15/22 09/19/23 Rima Carrizales NP 1 [facility] [address] [place] [address] PCP - General Nurse Practitioner 09/20/23 07/31/24 Torri Ruiz MD [address] [place] [address] PCP - General Family Medicine 08/01/24 Miscellaneous, Not In File 01/13/23 Tariq Jain MD [address] [place] [address] Consulting Physician Neurosurgery 01/13/23 Alison Swanson MD 1 [facility] [address] [place] [address] Referring Physician Athletics Teacher 06/09/23 documented as of this encounter
--- OUTSIDE RECORDS SUMMARY | 2024-10-19 13:14 | XMS_ITS ---
Author Organization [facility] [place] Address [address] [place], [place] [address] Care Team Providers Care Financial Operations Consultant Name Role Phone USAMA ALBERTS Primary Care Provider Eliseo Plata Unavailable [phone] REASON FOR VISIT WILL NOT ACCEPT HER BACK A PATIENT Encounters Encounter Location Date Provider Diagnosis Lizy Tee [place] [address] [place] [address] 08/03/2023 Eliseo Bruce PLAN OF TREATMENT No Information
--- OUTSIDE RECORDS SUMMARY | 2024-10-19 13:14 | XMS_ITS | Referral Summary ---
Author Organization [facility] Address [address] [place] [address] Care Team Providers Care Overnight Associate Name Role Phone Miscellaneous, Not In File Unavailable Unava ilable Tariq Jain MD Unavailable [phone] Alison Swanson MD Unavailable [phone] Torri Ruiz MD Primary Care Provider Allergies Active Allergy Reactions Criticality Noted Date Comments Clarithromycin Nausea & Vomiting,St omach upset,Nausea And Vomiting Low 01/14/2021 Etanercept Other (See comments),Unknown Low 020 Reaction: Other Sulfasalazine Other (See comments) Low 12/29/2019 Reaction: Other Medications vitamin b complex tablet Take 1 tablet by mouth daily Active multivitamin tabletIndications:V itamin Deficiency Prevention Take 1 tablet by mouth 2 (two) times a day 60 tablet 5 2 Active dexmethylphenidate XR (FOCALIN XR) 30 mg 24 hr capsule Take 1 capsule (30 mg total) by mouth daily 2 Active ondansetron ODT (ZOFRAN-ODT) 4 mg disintegrating tablet DISSOLVE 1 TABLET ON THE TONGUE EVERY 8 HOURS NEEDED FOR NAUSEA OR VOMITING 3 Active dexmethylphenidate (FOCALIN) 10 mg tablet Take 1 tablet (10 mg total) by mouth nightly 3 Active FLUoxetine (PROzac) 20 mg capsule 4 Active mexiletine (MEXITIL) 150 mg capsuleIndications: Ventricular Arrhythmias Take 1 capsule (150 mg total) by mouth daily 30 capsule 1 4 Active gabapentin (NEURONTIN) 600 mg tabletIndications:N europathic Pain Take 1.5 tablets (900 mg total) by mouth 4 (four) times a day 360 tablet 2 4 Active doxycycline (ADOXA) 100 mg tablet 4 Active Nucynta 50 mg tablet ONE Tablet(s) Oral EVERY 6 HOURS x30 day(s) 4 Active baclofen (LIORESAL) 10 mg tabletIndications:M uscle Spasticity of Spinal Origin Take 1 tablet (10 mg total) by mouth 3 (three) times a day 90 tablet 2 4 Active Active Problems Problem Noted Date Diagnosed Date Neuropathic pain 06/17/2023 Cervical myelopathy 01/12/2023 ANNA positive 12/15/2022 Fatigue 12/15/2022 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 Psoriasis 12/15/2022 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 Overview (09/22/2021): Added automatically from request for surgery [id number] Ulcer, peptic, acute or chronic 09/22/2021 Overview (09/22/2021): Added automatically from request for surgery [id number] Corneal abrasion due to contact lens, right 07/2019 History of gastric bypass 01/02/2020 Epigastric pain 01/02/2020 Encounter for smoking cessation counseling 01/01 Chest pain, musculoskeletal 08/14/2019 Rhinosinusitis 08/14/2019 Syphilis contact 05/16/2018 Screening for malignant neoplasm of the rectum 1 07/17/2017 Acute vaginitis 05/15/2018 Overview (04/15/2023): Vaginitis;Recorded Elsewhere: No Location: [facility] Source: EHR Chronic: N Practice ID: [id number] Billable Time: 05:00:00 PM 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 Overview (04/15/2023): Disproportion of reconstructed breast;Recorded Elsewhere: No Location: [facility] Source: EHR Chronic: N Practice ID: [id number] Billable Time: 05:00:00 PM Syphilis contact 05/15/2018 Overview (01/05/2023): Encounter for STD screening;Recorded Elsewhere: No Location: [facility] Source: EHR Chronic: N Practice ID: [id number] Billable Time: 05:00:00 PM 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 Overview (04/15/2023): Encounter for STD screening;Recorded Elsewhere: No Location: [facility] Source: EHR Chronic: N Practice ID: [id number] Billable Time: 05:00:00 PM Psoriatic arthritis 10/25/2017 [place] 10/21/2017 Snoring 10/21/2017 Excessive daytime sleepiness 10/21/2017 Lumbar stenosis 10/07/2017 Osteoarthritis of cervical spine 02/15/2017 Neoplasm of skin 01/27/2017 Overview (04/15/2023): Neoplasm of unsp behavior of bone, soft tissue, and skin;Recorded Elsewhere: No Location: [facility] Source: EHR Chronic: N Practice ID: [id number] Billable Time: 10:30:00 AM Lentiginosis 01/27/2017 Overview (04/15/2023): Other melanin hyperpigmentation;Practice ID: [id number] 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 Overview (04/15/2023): Leukoplakia of vulva;Practice ID: [id number] Neoplastic disease 01/27/2017 Overview (04/15/2023): Neoplasm of unsp behavior of bone, soft tissue, and skin;Recorded Elsewhere: No Location: [facility] Source: EHR Chronic: N Practice ID: [id number] Billable Time: 10:30:00 AM Vulvitis 12/15/2016 Overview (04/15/2023): Chronic vulvitis;Recorded Elsewhere: No Location: [facility] Source: EHR Chronic: N Practice ID: [id number] Billable Time: 09:30:00 AM Abnormal gait 12/14/2016 Cervical pain (neck) 12/09/2016 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 10/24/[address] of the abdomen 10/09/2015 Cyst of ovary 01/29/2015 Overview (04/15/2023): Other and unspecified ovarian cyst;Recorded Elsewhere: No Location: [facility] Source: EHR Chronic: N Practice ID: [id number] Billable Time: 09:30:00 AM Menopausal symptom 01/17/2015 Overview (04/15/2023): Menopausal symptoms;Recorded Elsewhere: No Location: [facility] Source: EHR Chronic: N Practice ID: [id number] Billable Time: 11:00:00 AM Neoplasm of uncertain behavior of ovary 03/05/20 14 Overview (04/15/2023): Neoplasm of uncertain behavior of ovary;Recorded Elsewhere: No Location: [facility] Source: EHR Chronic: N Practice ID: [id number] Billable Time: 11:45:00 AM Urinary tract infectious disease 01/30/2014 Overview (04/15/2023): Urinary Tract Infection;Recorded Elsewhere: No Location: [facility] Source: EHR Chronic: N Practice ID: [id number] Billable Time: 11:00:00 AM Female genital symptoms 01/30/2014 Overview (04/15/2023): Pelvic pain;Recorded Elsewhere: No Location: [facility] Source: EHR Chronic: N Practice ID: [id number] Billable Time: 11:00:00 AM Amenorrhea 01/30/2014 Overview (04/15/2023): Amenorrhea;Recorded Elsewhere: No Location: [facility] Source: EHR Chronic: N Practice ID: [id number] Billable Time: 11:00:00 AM Dysfunctional uterine bleeding 04/19/2012 Well adult health check 03/24/2012 test negative 03/24/2012 Ill-defined intestinal infection 10/13/2011 Vaginitis and vulvovaginitis 09/15/2011 At risk for sexually transmi tted disease due to unprotected sex 09/15/2011 Overview (04/15/2023): Contact with or exposure to venereal diseases;Recorded Elsewhere: No Location: [facility] Source: EHR Chronic: N Practice ID: [id number] Billable Time: 09:30:00 AM Abdominal pain 03/03/2011 Overview (04/15/2023): Added automatically from request for surgery [id number] Abdominal pain, other specified site;Practice ID: 0001 Blood in urine 03/03/2011 Overview (04/15/2023): HEMATURIA NOS;Recorded Elsewhere: No Location: [facility] Source: EHR Chronic: N Practice ID: [id number] Billable Time: 09:45:00 AM Preoperative evaluation to r ule out surgical contraindication 09/29/2010 Abnormal radiographic examination 09/29/2010 Overview (01/05/2023): Thickened Endometrial Stripe;Practice ID: [id number] Genitourinary complaints 09/29/2010 Pulmonary emphysema Acute bronchitis Immunizations Immunization Administration Dates Next Due Influenza, Quadrivalent, Kay l Culture-based MDCK, Preservative Free, Antibiotic Free, Intramuscular 04/22/2022 Social History Tobacco Use Types Packs/Day Years Used Date Smoking Tobacco: Former Cigarettes 1 33 1 8 - 2020 Smokeless Tobacco: Never Tobacco Cessation:Counseling Given: Not Answered Comments:quit one month ago Alcohol Use Standard Drinks/Week Comments Yes 0 (1 standard drink = 0.6 oz pur e alcohol) 2-3 times a month AUDIT-C Answer Date Recorded Frequency of Alcohol Consumption Not on file 11/02/2023 Q2: How many drinks containi ng alcohol do you have on a typical day when you are drinking? Patient does not drink Frequency of Binge Drinking Not on file 10/06 PHQ-2 Answer Date Recorded PHQ-2 Score 2 08/14/2019 Hunger Vital Sign Answer Date Recorded Within the past 12 months, y ou worried that your food would run out before you got the money to buy more. Never true 11/02/19 24 Within the past 12 months, t he food you bought just didn't last and you didn't have money to get more. Never true 11/02/2023 Comments No Sex and Gender Information Value Date Recorded Sex Assigned at Not on file Legal Sex Female 8:12 AM CDT Gender Identity Not on file Sexual Orientation Not on file Last Filed Vital Signs Vital Sign Reading Time Taken Comments Blood Pressure 135/58 11/02/2023 2:51 PM CDT Pulse 88 11/02/2023 2:51 PM CDT Temperature 36.1 C (96.9 F) 11/02/2023 2:51 PM CDT Respiratory Rate 10 11/02/2023 2:51 PM CDT Oxygen Saturation 95% 11/02/2023 2:51 PM CDT Inhaled Oxygen Concentration - - Weight 74.8 kg (165 lb) 11/02/2023 2:51 PM CDT Height 165.1 cm (5' 5 ) 11/02/2023 2:51 PM CDT Body Mass Index 27.46 11/02/2023 2:51 PM CDT Plan of Treatment Not on file Goals Goal Patient Goal Type Associated Problems Recent Progress Patient-Stated? Author CCM Chronic Pain Care Plan Chronic Care Management Worsening( 2:53 PM CDT) No Prisca Eaton, RN Note: Problem: Chronic Pain Goals: 1. Minimize further functional decline 2. Maximize quality of life 3. Control pain Strategies: - Activity/exercise program recommendation - Conservative stepwise pain medicine strategy with multi-disciplinary approach - Recommend healthy lifestyle strategies and compensatory methods as needed Insurance [facility] [place] Advance Directives For more information, please contact: [phone] Documents on File Type Date Recorded Patient Journeyman Pipe Welder Expl anation ADVANCE DIRECTIVE 09/30/2017 10:47 PM ADVANCE DIRECTIVE 09/29/2017 12:00 AM * Full Code (Latest Code Status on File) Date Activated Date Inactivated Comments 01/12/2023 11:29 AM 01/13/2023 10:18 PM * Full Code Date Activated Date Inactivated Comments 10/09/2021 9:12 PM 10/11/2021 8:19 PM * Full Code Date Activated Date Inactivated Comments 08/14/2019 4:38 PM 08/15/2019 10:04 PM Care Teams Overnight Associate Relationship Specialty Start Date End Date Torri Ruiz MD [address] [place] [address] PCP - General Family Medicine 08/01/24 Miscellaneous, Not In File 01/13/23 Tariq Jain MD [address] [place] [address] Consulting Physician Neurosurgery 01/13/23 Alison Swanson MD 1 [facility] [address] [place] [address] Referring Physician Mechanical Engineering Lecturer 06/09/23
--- OUTSIDE RECORDS SUMMARY | 2024-10-19 13:14 | XMS_ITS | Clinical Summary ---
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 Name Role Phone Torri Ruiz MD Primary Care Provider [phone] Allergies No known active allergies Medications clobetasol (TEMOVATE) 0.05 % ointment clobetasol 0.05 % topical ointment APPLY A THIN LAYER TO THE AFFECTED AREA(S) BY TOPICAL ROUTE ONCE A DAY Active Estradiol 4 MCG INSERT Imvexxy Maintenance Pack 4 mcg vaginal insert INSERT 1 VAGINALY INSERT TWICE A WEEK AT BEDTIME 2 Active ferrous sulfate, 65 mg elemental, 325 (65 FE) MG tablet ferrous sulfate 325 mg (65 mg iron) tablet TAKE 1 TABLET BY MOUTH EVERY DAY 2 Active vitamin B-12 (CYANOCOBALAMIN ) 500 MCG tablet Take 1 tablet (500 mcg total) by mouth daily. Active mexiletine (MEXITIL) 150 MG Cap Take 1 capsule (150 mg total) by mouth daily. 4 Active dexmethylphenid ate (FOCALIN) 10 MG Tab tablet Take 1 tablet (10 mg total) by mouth daily. 3 Active oxyCODONE-aceta minophen (PERCOCET) 5-325 MG tablet Take 2 tablets by mouth 3 (three) times daily as needed for Pain. Active Active Problems Problem Noted Date Diagnosed Date Iron deficiency anemia 12/07/2023 Corneal abrasion due to contact lens, right 07/2019 Encounters Date Type Department Care Team Description 10/05/2024 1:13 PM CDT - 10/05/2024 11:59 PM CDT Hospital Encounter [facility] [address] [place] [address] Kasia Holt NP Discharge Disposition: Home or Self Care (Routine Discharge) 10/05/2024 Travel 10/04/2024 12:55 PM CDT - 10/04/2024 11:59 PM CDT Hospital Encounter [address] [place] [address] Torri Ruiz MD Discharge Disposition: Home or Self Care (Routine Discharge) 10/04/2024 Orders Only [address] [place] [address] Torri Ruiz MD 10/04/2024 Travel from Last 3 Months Social History Tobacco Use Types Packs/Day Years Used Date Smoking Tobacco: Every Day Smokeless Tobacco: Never Tobacco Cessation:Ready to Q uit: Not Asked; Counseling Given: Not Answered Comments No Sex and Gender Information Value Date Recorded Sex Assigned at Female 10/04/2024 12:54 PM CDT Legal Sex Female 6:29 PM CDT Gender Identity Not on file Sexual Orientation Not on file Last Filed Vital Signs Vital Sign Reading Time Taken Comments Blood Pressure 126/77 12/31/2023 9:37 AM CDT Pulse 84 12/31/2023 9:37 AM CDT Temperature 37.1 C (98.7 F) 12/31/2023 9:37 AM CDT Respiratory Rate 18 12/31/2023 9:37 AM CDT Oxygen Saturation 100% 12/31/2023 9:37 AM CDT Inhaled Oxygen Concentration - - Weight 67.3 kg (148 lb 6.4 oz) 12/31/2023 9:37 A M CDT Height 170.2 cm (5' 7 ) 02/18/2022 2:10 PM CDT Body Mass Index 23.24 02/18/2022 2:10 PM CDT Plan of Treatment Health Maintenance Due Date Last Done Comments Colorectal Cancer Screening Colonoscopy (10 Years) 1969 Annual Physical 1972 Hepatitis C 08/28/1987 DTaP, Tdap and Td Vaccines ( 1 - Tdap) 1988 Hepatitis B Vaccines (1 of 3 - 19+ 3-dose series) 1988 Pneumococcal Vaccine: 50+ Ye ars (1 of 2 - PCV) 1988 Cervical Cancer Screening Pa p with HPV Testing (Age 30 to 64) Every 5 Years 08/28/1999 Zoster Vaccines (1 of 2) 08/28/2019 Mammogram Screening 12/13/2023 12/12/2021 COVID-19 Vaccine (2 - 2023-2 5 season) 2024 06/28/2020 Cervical Cancer Screening Pa p Smear (Age 30 to 64) Every 3 Years 03/18/2025 03/18/2022 Cervical Cancer Screening with HPV 03/18/2025 Meningococcal B Vaccine Aged Out No l onger eligible based on patient's age to complete this topic Meningococcal Vaccine Aged Out No wally laurence eligible based on patient's age to complete this topic RSV Immunizations Under 20 Months Aged Out No longer eligible based on patient's age to complete this topic Procedures Procedure Name Priority Date/Time Associated Diagnosis Comments MRI CERV SPINE WO CON Routine 10/05/2024 2:21 PM CDT Neck pain Cervical vertebral fusion CT CERV SPINE WO CON Routine 10/05/2024 1:26 PM CDT Neck pain Cervical vertebral fusion VITAMIN D, 25 OH Routine 10/04/2024 1:04 PM CDT Moderate major depression, single episode (CMS/HCC) THYROID STIM HORMONE TSH Routine 10/04/2024 1:04 PM CDT Moderate major depression, single episode (CMS/HCC) COMPREHENSIVE METABOLIC PANEL Routine 10/04/2024 1:04 PM CDT Moderate major depression, single episode (CMS/HCC) IRON SAT PANEL (IRON,IBC,%SAT) Routine 10/04/2024 1:04 PM CDT Moderate major depression, single episode (CMS/HCC) FOLIC ACID SERUM Routine 10/04/2024 1:04 PM CDT Moderate major depression, single episode (CMS/HCC) VITAMIN B-12 Routine 10/04/2024 1:04 PM CDT Moderate major depression, single episode (CMS/HCC) CBC W/DIFF AUTOMATED Routine 10/04/2024 1:04 PM CDT Moderate major depression, single episode (CMS/HCC) MG SCREENING IMPLANT W MAYRA CITLALY DIGI Routine 12/12/2021 8:14 AM CDT Encounter for screening mammogram for breast cancer from Last 3 Months or Most Recently Relevant to Health Maintenance Results * MRI CERV SPINE WO CON (10/05/2024 2:21 PM CDT) Anatomical Region Laterality Modality Spine Magnetic Resonan ce 10/08/2024 2:21 PM CDT Impressions 10/08/2024 2:28 PM CDT IMPRESSION: 1. Postsurgical and multilevel degenerative changes in the cervical spine contributing to varying degrees of spinal canal and foraminal stenosis, as detailed above. 2. No obvious cervical cord signal abnormality identified, though assessment is somewhat degraded by artifact. Referred By: KASIA HOLT Interpreted By: Omar Miranda MD, 10/08/2024 2:21 PM Narrative 10/08/2024 2:28 PM [address]T [address] [place] [place] [address] INDICATION: Neck pain. Prior cervical spine surgery. EXAMINATION: MRI of the cervical spine without contrast. TECHNIQUE: Multiplanar and multisequence MRI images of the cervical spine were obtained without contrast. COMPARISON: MRI 12/24/2022 FINDINGS: There are postsurgical changes of multilevel laminectomies and posterior fusion from C3 through C5. Redemonstration of postsurgical changes of prior C5-C6 ACDF with mature fusion of the C5-C6 disc space. Cervicothoracic scoliosis. Straightening of the cervical lordosis. Slight retrolisthesis of C3 on C4. Otherwise the cervical vertebral alignment, vertebral body heights, and facet alignment are maintained. Multilevel degenerative changes are evident in the cervical spine with disc degeneration, endplate/uncovertebral osteophytes, and facet hypertrophy noted. Multilevel disc desiccation. No obvious cervical cord signal abnormality identified, though assessment is somewhat degraded by artifact. Craniocervical junction and partially imaged posterior fossa contents are unremarkable. Imaged portions of the neck soft tissues reveal no acute findings. Partially imaged mandibular postsurgical changes. C2-C3: Disc osteophyte complex. Uncovertebral osteophytes. Facet hypertrophy. Moderate canal stenosis with partial effacement of the thecal sac and flattening of the subjacent cord. Mild right foraminal narrowing. C3-C4: Postsurgical changes. Retrolisthesis. Disc osteophyte complex. Uncovertebral osteophytes. Facet hypertrophy. Dorsal spinal canal decompressed after laminectomy. Flattening of the ventral thecal sac and subjacent cord. Severe right foraminal narrowing. C4-C5: Post surgical changes. Mild disc bulge. Uncovertebral osteophytes. Facet hypertrophy. Dorsal spinal canal decompressed after laminectomy. Moderate right and mild left foraminal narrowing. C5-C6: Postsurgical changes. Posterior endplate and uncovertebral osteophytes. Facet hypertrophy. Mild canal stenosis. Moderate left and mild right foraminal narrowing. C6-C7: Disc bulge. Uncovertebral osteophytes. Facet hypertrophy. Mild ligamentum flavum thickening. Mild to moderate canal stenosis with partial effacement of the thecal sac and flattening of the subjacent cord. Moderate left and mild right foraminal narrowing. C7-T1: Facet hypertrophy. Endplate osteophytes. No significant canal stenosis. Moderate right and mild left foraminal narrowing. Procedure Note Omar Miranda MD - 10/08/[address] [place] [address] INDICATION: Neck pain. Prior cervical spine surgery. EXAMINATION: MRI of the cervical spine without contrast. TECHNIQUE: Multiplanar and multisequence MRI images of the cervical spinewere obtained without contrast. COMPARISON: MRI 12/24/2022 FINDINGS: There are postsurgical changes of multilevel laminectomies and posteriorfusion from C3 through C5. Redemonstration of postsurgical changes ofprior C5-C6 ACDF with mature fusion of the C5-C6 disc space.Cervicothoracic scoliosis. Straightening of the cervical lordosis. Slightretrolisthesis of C3 on C4. Otherwise the cervical vertebral alignment,vertebral body heights, and facet alignment are maintained. Multileveldegenerative changes are evident in the cervical spine with discdegeneration, endplate/uncovertebral osteophytes, and facet hypertrophynoted. Multilevel disc desiccation. No obvious cervical cord signalabnormality identified, though assessment is somewhat degraded byartifact. Craniocervical junction and partially imaged posterior fossa contents areunremarkable. Imaged portions of the neck soft tissues reveal no acutefindings. Partially imaged mandibular postsurgical changes. C2-C3: Disc osteophyte complex. Uncovertebral osteophytes. Facethypertrophy. Moderate canal stenosis with partial effacement of the thecalsac and flattening of the subjacent cord. Mild right foraminalnarrowing. C3-C4: Postsurgical changes. Retrolisthesis. Disc osteophyte complex.Uncovertebral osteophytes. Facet hypertrophy. Dorsal spinal canaldecompressed after laminectomy. Flattening of the ventral thecal sac andsubjacent cord. Severe right foraminal narrowing. C4-C5: Post surgical changes. Mild disc bulge. Uncovertebral osteophytes.Facet hypertrophy. Dorsal spinal canal decompressed after laminectomy.Moderate right and mild left foraminal narrowing. C5-C6: Postsurgical changes. Posterior endplate and uncovertebralosteophytes. Facet hypertrophy. Mild canal stenosis. Moderate left andmild right foraminal narrowing. C6-C7: Disc bulge. Uncovertebral osteophytes. Facet hypertrophy. Mildligamentum flavum thickening. Mild to moderate canal stenosis with partialeffacement of the thecal sac and flattening of the subjacent cord.Moderate left and mild right foraminal narrowing. C7-T1: Facet hypertrophy. Endplate osteophytes. No significant canalstenosis. Moderate right and mild left foraminal narrowing. IMPRESSION: 1. Postsurgical and multilevel degenerative changes in the cervical spinecontributing to varying degrees of spinal canal and foraminal stenosis, asdetailed above. 2. No obvious cervical cord signal abnormality identified, thoughassessment is somewhat degraded by artifact. Referred By: KASIA HOLT Interpreted By: Omar Miranda MD, 10/08/2024 2:21 PM us Kasia Holt RETAIL STORE CLERK MRI Final Result * CT CERV SPINE WO CON (10/05/2024 1:26 PM CDT) Anatomical Region Laterality Modality Spine Computed Tomogra phy 10/08/2024 2:29 PM CDT Impressions 10/08/2024 2:34 PM CDT IMPRESSION: 1. Post surgical changes of multilevel laminectomies and posterior fusion from C3 through C5, as above. Circumferential lucency surrounding the bilateral C5 fixation screws concerning for loosening. 2. Postsurgical changes of C5-C6 ACDF with mature osseous fusion of the C5-C6 disc space. 3. Multilevel degenerative changes. 4. Partially imaged emphysematous changes and possible left upper lobe groundglass nodule. Advise further evaluation with follow-up chest CT. Referred By: KASIA HOLT Interpreted By: Omar Miranda MD, 10/08/2024 2:29 PM Narrative 10/08/2024 2:34 PM [address]T [address] [place] [address] EXAMINATION: CT Cervical Spine without contrast CLINICAL HISTORY: Neck pain. History of prior cervical surgery. COMPARISON: MRI 12/24/2022 TECHNIQUE: CT examination of the cervical spine was performed without contrast. Axial and multiplanar reformatted images were obtained. A dose lowering technique was used for this procedure, which may include, but is not limited to, dose reduction technique, automated exposure control, the use of iterative reconstruction, and ALARA (As Low As Reasonably Achievable) / Image Gently techniques. FINDINGS: There are postsurgical changes of multilevel laminectomies and posterior fusion from C3 through C5. There is circumferential lucency seen surrounding the C5 fixation screws concerning for loosening. There is incomplete ankylosis of the C3-C5 facets at this time. Additional postsurgical changes of C5-C6 ACDF with mature osseous fusion of the C5-C6 disc space. Otherwise the remainder of the fixation hardware is intact and without evidence of fracture or loosening elsewhere. Slight retrolisthesis of C3 on C4. Straightening of the cervical lordosis. Mild mid cervical levoscoliosis. Otherwise the cervical vertebral alignment, vertebral body heights, and facet alignment are maintained. Multilevel degenerative changes are evident in the cervical spine with disc degeneration, endplate/uncovertebral osteophytes, and facet hypertrophy noted. Most severe foraminal narrowing on the right at C3-C4. Please refer to separately reported cervical spine MRI for more detailed description of the degree of thecal sac effacement and encroachment of the cervical cord. Imaged portions of the soft tissues reveal postsurgical changes involving the mandible and mandibular fossae related to bilateral temporomandibular joint arthroplasties. Mucosal thickening noted in the paranasal sinuses. Carotid atherosclerosis. Emphysema. Possible left upper lobe groundglass nodule. Procedure Note Omar Miranda MD - 10/08/2024 [facility] [address] [place] [address] EXAMINATION: CT Cervical Spine without contrast CLINICAL HISTORY: Neck pain. History of prior cervical surgery. COMPARISON: MRI 12/24/2022 TECHNIQUE: CT examination of the cervical spine was performed withoutcontrast. Axial and multiplanar reformatted images were obtained. A dose lowering technique was used for this procedure, which may include,but is not limited to, dose reduction technique, automated exposurecontrol, the use of iterative reconstruction, and ALARA (As Low AsReasonably Achievable) / Image Gently techniques. FINDINGS: There are postsurgical changes of multilevel laminectomies and posteriorfusion from C3 through C5. There is circumferential lucency seensurrounding the C5 fixation screws concerning for loosening. There isincomplete ankylosis of the C3-C5 facets at this time. Additionalpostsurgical changes of C5-C6 ACDF with mature osseous fusion of the C5-C6disc space. Otherwise the remainder of the fixation hardware is intact andwithout evidence of fracture or loosening elsewhere. Slight retrolisthesis of C3 on C4. Straightening of the cervical lordosis.Mild mid cervical levoscoliosis. Otherwise the cervical vertebralalignment, vertebral body heights, and facet alignment are maintained.Multilevel degenerative changes are evident in the cervical spine withdisc degeneration, endplate/uncovertebral osteophytes, and facethypertrophy noted. Most severe foraminal narrowing on the right at C3-C4.Please refer to separately reported cervical spine MRI for more detaileddescription of the degree of thecal sac effacement and encroachment of thecervical cord. Imaged portions of the soft tissues reveal postsurgical changes involvingthe mandible and mandibular fossae related to bilateral temporomandibularjoint arthroplasties. Mucosal thickening noted in the paranasal sinuses.Carotid atherosclerosis. Emphysema. Possible left upper lobe groundglassnodule. IMPRESSION: 1. Post surgical changes of multilevel laminectomies and posterior fusionfrom C3 through C5, as above. Circumferential lucency surrounding thebilateral C5 fixation screws concerning for loosening. 2. Postsurgical changes of C5-C6 ACDF with mature osseous fusion of theC5-C6 disc space. 3. Multilevel degenerative changes. 4. Partially imaged emphysematous changes and possible left upper lobegroundglass nodule. Advise further evaluation with follow-up chest CT. Referred By: KASIA HOLT Interpreted By: Omar Miranda MD, 10/08/2024 2:29 PM Kasia Holt RETAIL STORE CLERK CT Final Result * (ABNORMAL) IRON SATURATION PNL (FE/TIBC/SAT) (10/04/2024 1:04 PM CDT) IRON 16(L) 50 - 170 MCG/DL 10/04/2024 1:52 PM CDT [facility] IRON BINDING CAPACITY 314 250 - 450 MCG/DL 10/04/2024 1:52 PM CDT [facility] IRON SATURATION 5 % 1:52 PM CDT [facility] Comment:REFERENCE RANGE NOT ESTABLISHED 10/04/2024 1:04 PM CDT Torri Ruiz MD LABORATORY Final Resu lt [facility] [address] [place] [address], * VITAMIN B-12 (10/04/2024 1:04 PM CDT) VITAMIN B12 S/P/B 287 193 - 986 PG/ML 10/04/2024 9:[address] [facility] 10/04/2024 1:04 PM CDT us Torri Ruiz MD LABORATORY Final Resu lt [facility] [address] [place] [address], [id number] * (ABNORMAL) COMPREHENSIVE METABOLIC PANEL (10/04/2024 1:04 PM CDT) SODIUM S/P/B 139 136 - 145 MMOL/L 10/04/2024 1:35 PM CDT [facility] POTASSIUM S/P/B 4.4 3.5 - 5.1 MMOL/L 10/04/2024 1:35 PM CDT [facility] CHLORIDE S/P/B 103 98 - 107 MMOL/L 10/04/2024 1:35 PM CDT [facility] CO2 34.2(H) 21.0 - 32.0 MMOL/L 10/04/2024 1:35 PM CDT [facility] GLUCOSE 89 70 - 99 MG/DL 10/04/2024 1:35 PM CDT [facility] Comment: FASTING GLUCOSE 100 TO 125 MG/DL IS CONSISTENT WITH IMPAIRED FASTING GLUCOSE. FASTING GLUCOSE >125 MG/DL IS CONSISTENT WITH DIABETES. RANDOM GLUCOSE >200 MG/DL WITH HYPERGLYCEMIC SYMPTOMS IS CONSISTENT WITH DIABETES. PER ADA GUIDELINES BUN 25(H) 6 - 24 MG/DL 10/04/2024 1:35 PM CDT [facility] CREATININE S/P/B 0.58 0.55 - 1.02 MG/DL 10/04/2024 1:35 PM CDT [facility] CALCIUM S/P/B 8.7 8.4 - 10.5 MG/DL 10/04/2024 1:35 PM CDT [facility] BILIRUBIN TOTAL S/P/B 0.3 0.2 - 1.0 MG/DL 10/04/2024 1:35 PM CDT [facility] Comment: THIS ASSAY IS NOT RECOMMENDED FOR PATIENTS UNDERGOING TREATMENT WITH ELTROMBOPAG DUE TO THE POTENTIAL FOR FALSELY ELEVATED RESULTS. ALKALINE PHOSPHATASE S/P/B 186(H) 41 - 108 U/L 10/04/2024 1:35 PM CDT [facility] AST 23 15 - 37 U/L 10/04/2024 1:35 PM CDT [facility] ALT 17 14 - 59 U/L 10/04/2024 1:35 PM CDT [facility] TOTAL PROTEIN S/P/B 6.3(L) 6.4 - 8.2 G/DL 10/04/2024 1:35 PM CDT [facility] ALBUMIN S/P/B 2.7(L) 3.4 - 5.0 G/DL 10/04/2024 1:35 PM CDT [facility] ANION GAP 1.8(L) 5.0 - 15.0 MMOL/L 10/04/2024 1:35 PM CDT [facility] OSMOLALITY (CALC) 292 MOSM/KG 025 1:35 PM CDT [facility] Comment:REFERENCE RANGE NOT ESTABLISHED GFR ESTIMATE >90 >89 ML/MIN/1. 73 M2 10/04/2024 1:35 PM CDT [facility] GFR NOTES GFR REFERENCE S: 10/04/2024 1:35 PM T [facility] Comment: THE ESTIMATED GFR IS CALCULATED USING THE 2020 CKD-EPI EQUATION. THE FOLLOWING CATEGORIES FOR GRADING RENAL FUNCTION ARE RECOMMENDED BY THE INTERNATIONAL SOCIETY OF NEPHROLOGY (KDIGO 2012 CLINICAL PRACTICE GUIDELINE). G1,NORMAL OR HIGH: >89 ml/min/1.73 m2 G2,MILDLY DECREASED: 60-89 ml/min/1.73 m2 G3A,MILDLY TO MODERATELY DECREASED: 45-59 ml/min/1.73 m2 G3B,MODERATELY TO SEVERELY DECREASED: 30-44 ml/min/1.73 m2 G4,SEVERELY DECREASED: 15-29 ml/min/1.73 m2 G5,KIDNEY FAILURE: <15 ml/min/1.73 m2 10/04/2024 1:04 PM CDT us Torri Ruiz MD LABORATORY Final Resu lt [facility] [address] [place] [address], [place] [phone] * FOLIC ACID SERUM (10/04/2024 1:04 PM CDT) [facility] FOLATE 6.4 3.1 - 17.5 NG/ML 10/04/2024 9:[address] [facility] 10/04/2024 1:04 PM CDT us Torri Ruiz MD LABORATORY Final Resu lt [facility] [address] [place] [address], [place] [phone] * (ABNORMAL) CBC W/DIFF AUTOMATED (10/04/2024 1:04 PM CDT) [facility] WBC 11.28(H) 4.00 - 10.80 x10'3/uL 10/04/2024 1:11 PM CDT [facility] RBC 3.79(L) 4.10 - 5.40 x10'6/uL 10/04/2024 1:11 PM CDT [facility] HGB 10.9(L) 12.0 - 16.0 G/DL 10/04/2024 1:11 PM CDT [facility] HCT 34.6(L) 36.0 - 47.0 % 10/04/2024 1:11 PM CDT [facility] MCV 91.3 78.0 - 100.0 FL 10/04/2024 1:11 PM CDT [facility] MCH 28.8 27.0 - 31.0 PG 10/04/2024 1:11 PM CDT [facility] MCHC 31.5(L) 33.0 - 36.0 G/DL 10/04/2024 1:11 PM CDT [facility] RDW 14.6(H) 11.5 - 14.5 % 10/04/2024 1:11 PM CDT [facility] PLT 386(H) 150 - 350 x10'3/uL 10/04/2024 1:11 PM CDT [facility] MPV 7.7 7.4 - 10.4 FL 10/04/2024 1:11 PM CDT [facility] CBC COMMENT NORMAL REFERENCE RANGE NOT ESTABLISHED FOR THE PROPORTIONAL LEUKOCYTE DIFFERENTIAL. 10/04/2024 1:11 PM CDT [facility] NEUTROPHILS % 71.6 % 10/04/2024 1:11 PM CDT [facility] LYMPHOCYTES % 19.8 % 10/04/2024 1:11 PM CDT [facility] MONOCYTES % 6.0 % 10/04/2024 1:11 PM CDT [facility] EOSINOPHILS % 1.7 % 10/04/2024 1:11 PM CDT [facility] BASOPHILS % 0.5 % 10/04/2024 1:11 PM CDT [facility] IMMATURE GRANS % 0.4 % 10/05/19 1:11 PM CDT [facility] NRBC % 0.0 % 10/04/2024 1:11 PM CDT [facility] ABS. NEUTROPHILS 8.08 1.60 - 8.30 x10'3/uL 10/04/2024 1:11 PM CDT [facility] ABS. LYMPHOCYTES 2.23 0.80 - 4.70 x10'3/uL 10/04/2024 1:11 PM CDT [facility] ABS. MONOCYTES 0.68 0.00 - 1.50 x10'3/uL 10/04/2024 1:11 PM CDT [facility] ABS. EOSINOPHILS 0.19 0.00 - 0.40 x10'3/uL 10/04/2024 1:11 PM CDT [facility] ABS. BASOPHILS 0.06 0.00 - 0.20 x10'3/uL 10/04/2024 1:11 PM CDT [facility] ABS. IMMATURE GRANULOCYTES 0.04(H) 0.00 - 0.03 x10'3/uL 10/04/2024 1:11 PM CDT [facility] ABS. NUCLEATED RBC'S 0.00 0.00 - 0.01 x10'3/uL 10/04/2024 1:11 PM CDT [facility] 10/04/2024 1:04 PM CDT us Torri Ruiz MD LABORATORY Final Resu lt Performing Organization Address [facility]/ZIP Co de Phone Number [facility] [address] [place] [address], [place] [phone] * THYROID STIM HORMONE TSH (10/04/2024 1:04 PM CDT) TSH 1.535 0.358 - 3.740 uIU/ML 10/04/2024 1:35 PM CDT [facility] Comment: ASSAY PERFORMED BY CHEMILUMINESCENT IMMUNOASSAY METHODOLOGY USING [employer]. PATIENT RESULTS DETERMINED BY ASSAYS FROM DIFFERENT MANUFACTURERS AND/OR BY DIFFERENT METHODS MAY NOT BE COMPARABLE. 10/04/2024 1:04 PM CDT us Torri Ruiz MD LABORATORY Final Resu Performing Organization Address [facility] de Phone Number [facility] [address] [place] [address], [place] [phone] * VITAMIN D, 25 OH (10/04/2024 1:04 PM CDT) VITAMIN D 25 HYDROXY TOTAL S/P/B 41.2 20.0 - 50.0 NG/ML 10/04/2024 7:[address] [facility] Comment: <10 ng/mL (Severe deficiency) 10 TO 19 ng/mL (Mild to Moderate deficiency) 20 TO 50 ng/mL (Optimum levels) 51 TO 80 ng/mL (Increased risk of hypercalciuria) >80 ng/mL (Toxicity possible) 10/04/2024 1:04 PM CDT us Torri Ruiz MD LABORATORY Final Resu lt [facility] [address] [place] [address], [id number] * MG SCREENING IMPLANT W MAYRA FARLEY (12/12/2021 8:14 AM CDT) Anatomical Region Laterality Modality Breast Bilateral Computed Tomogra phy, Other 12/12/2021 9:36 AM CDT Impressions 12/12/2021 9:40 AM CDT IMPRESSION: There are scattered areas of fibroglandular density. 1. BI-RADS Category Category 2 - benign findings. 2. Annual screening mammography recommended. A) A negative report should not delay a biopsy if a dominant or clinically suspicious mass is present. B) Adenosis and dense breasts may obscure an underlying neoplasm. C) Study interpreted with computer-aided detection. MQSA BI-RADS Categories: Category 0 - needs additional imaging evaluation. Category 1 - negative. Category 2 - benign findings. Category 3 - probably benign findings, but short interval followup is recommended. Category 4 - suspicious abnormality and biopsy should be considered though the lesion may well be benign. Category 5 - highly suggestive of malignancy and appropriate action should be taken. Category 6 - known biopsy-proven malignancy Ordered By: LIZY COY Interpreted By: Daryl Hunter, 12/12/2021 9:36 AM Narrative 12/12/2021 9:40 AM CDT DIGITAL BILATERAL IMPLANT SCREENING MAMMOGRAM WITH COMPUTER-AIDED DETECTION AND 3-D TOMOSYNTHESIS DATE: 12/12/2021 7:39 AM HISTORY: Screening examination. No complaints listed referable to either breast. Bilateral breast implants 2007. COMPARISON: 12/02/2019 and 05/26/2016 mammogram. FINDINGS: Digital 2-D mammography and 3-D tomosynthesis performed of both breasts with implant and implant displaced views. Bilateral retropectoral saline implants again demonstrated, which have similar contour to the prior studies. Scattered parenchymal densities in both breasts. Minor benign-appearing calcification in both breasts. Parenchymal pattern has similar appearance to the prior studies. BREAST COMPOSITION: Lizy Coy RETAIL STORE CLERK MAMMO Final Result from Last 3 Months or Most Recently Relevant to Health Maintenance Insurance [facility] Care Teams Sheet Metal Pattern Cutter Relationship Specialty Start Date End Date Torri Ruiz MD [address] [place] [id number] PCP - General FAMILY PRACTICE 12/25/23
--- OUTSIDE RECORDS SUMMARY | 2024-10-19 13:14 | XMS_ITS | Patient Health Record ---
Author Organization [facility], [place] Address [address] [facility] [address] [place], [place] [address] Care Team Providers Care Industrial Machinery Mechanic Name Role Phone USAMA ALBERTS Primary Care Provider Unavailabl e ALLERGIES Allergen (clinical drug ingredient) Drug/Non Drug Allergy documented on EMR Reaction Allergy Type Onset Date Status sulfasalazine Sulfasalazine Unknown Drug Allergy Active clarithromycin Clarithromycin nausea and vomiting Drug Allergy Active leflunomide Leflunomide Unknown Drug Allergy Act stevan REASON FOR REFERRAL No Information MEDICATIONS Medication SIG (Take, Route, Frequency, Duration) Notes Start Date End Date Status Multivitamin Adults - 1 tablet Orally daily Active Vitamin B-12 1000 MCG 1 tablet Orally On ce a day Active Gabapentin 300 MG 3 capsules Orally QID Active Vitamin B Complex - Orally daily Active tiZANidine HCl 4 MG 1 tablet as needed Orally Twice a day Active HYDROcodone-Acetaminophen 7.5-325 MG 1 tablet as needed Orally every 8 hrs for 14 days 07/19/2023 Active busPIRone HCl 7.5 MG 1 tablet Orally Twi ce a day Active Dexmethylphenidate HCl ER 30 MG 1 capsule in the morning Orally Once a day Active Vitamin B-1 100 MG 1 tablet Orally Once a day for 30 day(s) Active Vitamin B-6 100 MG 1 tablet Orally Once a day for 30 day(s) Active Furosemide 20 MG 1 tablet Orally Once a day for 30 day(s) Active Ondansetron 4 MG 1 tablet on the tong ue and allow to dissolve Orally every 8 hours Active Methotrexate Sodium 2.5 MG 5 tablets Ora lly Once a week Active SOCIAL HISTORY Tobacco Use: Social History Observation Description Date Details (start date - stop date) Former Smoker NA - NA Sex Assigned At : Social History Observation Description Sex Assigned At Unknown Tobacco Use/Smoking Question Answer Notes Are you a former smoker Alcohol Screen Question Answer Notes Did you have a drink containing alcohol in the p ast year? No Points 0 Interpretation Negative PROBLEMS Problem Type ICD Code Onset Dates Problem Status W/U Status Risk SNOMED Code Notes Problem Spondylosis without myelopathy or radiculopathy, lumbar region (M47.816) Active confirmed Lumbosacral spondylosis without myelopathy (16800113) Problem Spondylosis without myelopathy or radiculopathy, lumbosacral region (M47.817) Active confirmed Lumbosacral spondylosis without myelopathy (disorder) (63957923) PLAN OF TREATMENT Pending Test Test Name Order Date 1. CBC WITH DIFFERENTIAL 07/05/2023 2. ESR 07/05/2023 3. C-REACTIVE PROTEIN 07/05/2023 MEDICAL (GENERAL) HISTORY Medical History History ICD Code radiculopathy affecting upper extremity radiculopathy, site unspecified psoriatic arthritis Myalgia Arthralgia Back Pain without sciatica degernative disc disease Bursitis SS Antibody B tested high for Sjorgren's Disease interstitial cystitis Yeast infection asthmatic allergic rhinitis ADD adenomatous colon polyp headaches constipation emphysema scleroderma interstitial lung disease lung nodule GERD lymphedema chest pain choking due to food complications of gastric bypass surgery dysphagia pernicious anemia rhinosinusitis shortness of breath total fracture of alveolus of maxilla small fiber neuropathy Surgical History Surgery Date(Month/Year) section 1995, 2002 gastric bypass 2000 cholecystectomy 2005 abdominoplasty 2007, 2008 breast augmentation 2008 jaw joint replacement 2010 cervical fusion- C4 & C5 fused/hardware 2014 tubal ligation lumbar laminectomy fistula repair, abdomen 10/2021
--- OUTSIDE RECORDS SUMMARY | 2024-10-19 13:14 | XMS_ITS | Encounter Summary ---
Author Organization [facility] Health Address [address] [place] [address] Care Team Providers Care Gravure Printing Machinist Name Role Phone Costa Sanchez MD Primary Care Provider [phone] Yamileth Leon MD Unavailable Encounter Details Date Type Department Care Team (Late st Contact Info) Description 11/07/2019 Lab Requisition [facility] [address] [place] [address] Santi Hartmann MD Cough Social History Tobacco Use Types Packs/Day Years Used Date Smoking Tobacco: Every Day Cigarettes Smokeless Tobacco: Never Alcohol Use Standard Drinks/Week Comments No 0 (1 standard drink = 0.6 oz pur e alcohol) Comments No Sex and Gender Information Value Date Recorded Sex Assigned at Not on file Legal Sex Female 10:04 AM AIRPORT ENGINEER Gender Identity Not on file Sexual Orientation Not on file documented as of this encounter Functional Status * Is person deaf or have serious hearing difficulty? Answer Date of Assessment Author No 09/16/2015 11:09 AM Nilesh Rodriguez RN * Is person blind or have serious difficulty seeing? Answer Date of Assessment Author No 09/16/2015 11:09 AM Nilesh Rodriguez RN * Does person have serious difficulty walking/climbing stairs? Answer Date of Assessment Author No 09/16/2015 11:09 AM Nilesh Rodriguez RN * Does person have difficulty dressing/bathing? Answer Date of Assessment Author No 09/16/2015 11:09 AM Nilesh Rodriguez RN * Does person have difficulty doing errands alone? Answer Date of Assessment Author No 09/16/2015 11:09 AM CDT Nilesh Verma RN documented as of this encounter Mental Status * Does person have difficulty concentrating/remembering/making decisions? Answer Entry Date Author No 09/16/2015 11:09 AM CDT Nilesh Verma RN documented in this encounter Plan of Treatment Upcoming Encounters Date Type Department Care Team (Late st Contact Info) Description 12/15/2024 2:00 PM CDT Office Visit [facility] - Neurology [address] [facility] [place] [address] Deandre Neal, GRINDER OPERATOR EXTERNAL TOOL-HEAD SCORER [address] [place] [address] documented as of this encounter Procedures Procedure Name Priority Date/Time Associated Diagnosis Comments SARS-COV-2 (COVID-19) IN HOUSE Routine 11/07/2019 2:50 AM CDT Cough documented in this encounter Results * SARS-COV-2 (COVID-19) IN HOUSE (11/07/2019 2:50 AM CDT) COVID-19 PCR Not detected Not detected, Invalid 11/08/2019 3:22 PM CDT [facility]CRO[facility] Microbiology SPECIMEN FROM NASOPHARYNGEAL STRUCTURE / Unknown Collection / Unknown 11/07/2019 2:50 AM CDT 11/07/2019 9:30 PM CDT Narrative [facility] - 11/08/2019 3:22 PM CDT This Real Time RT-PCR assay was developed and its performance characteristics determined by [facility]. This test has been authorized by the Food and Drug administration (FDA)under an Emergency Use Authorization (EUA). This test has been validated in accordance with the FDA's guidance document Policy for Diagnostic Testing in Laboratories Certified to perform High Complexity Testing under CLIA prior to Emergency Use Authorization for Coronavirus Disease-2019 during the Public Health Emergency issued on August 05, 2019. FDA independent review of this validation is pending. This test is only authorized for the duration of time the declaration that circumstances exist justifying the authorization of emergency use of in vitro diagnostic tests for detection of SARS-CoV-2 virus and/or diagnosis of COVID-19 infection under section 564(b)(1) of the Act, 21 U.S.C 360bbb-3 (b)(1), unless the authorization is terminated or revoked sooner. us Santi Hartmann MD LAB - MICROBIOLOGY ORDERABL ES Final Result [facility] [address] [place] [address], [facility] [phone] documented in this encounter Visit Diagnoses Diagnosis Cough documented in this encounter Additional Health Concerns Infection Onset Date Last Indicated Resolved Time COVID-19 Under Investigation 11/07/2019 11/07/2019 11/08/2019 3:22 PM CDT documented as of this encounter Care Teams Gravure Printing Machinist Relationship Specialty Start Date End Date Costa Sanchez MD [address] [place] [address] PCP - General Internal Medicine 08/20/15 Yamileth Leon MD [facility] [facility] [address] [place] [phone] Rheumatology 03/23/23 documented as of this encounter
--- OUTSIDE RECORDS SUMMARY | 2024-10-19 13:14 | XMS_ITS | Clinical Summary ---
Author Organization [facility] Address [address] [place] [address] Care Team Providers Care Recreation Leader Name Role Phone Miscellaneous, Not In File Unavailable Unava ilable Tariq Jain MD Unavailable [phone] Alison Swanson MD Unavailable [phone] Torri Ruiz MD Primary Care Provider Allergies [...] (09/22/2021): Added automatically from request for surgery [id number] Ulcer, peptic, acute or chronic 09/22/2021 Overview (09/22/2021): Added automatically from request for surgery [id number] Corneal abrasion due to contact lens, right 07/2019 History of gastric bypass 01/02/2020 Epigastric pain 01/02/2020 Encounter for smoking cessation counseling 01/01 Chest pain, musculoskeletal 08/14/2019 Rhinosinusitis 08/14/2019 Syphilis contact 05/16/2018 Screening for malignant neoplasm of the rectum 1 07/17/2017 Acute vaginitis 05/15/2018 Overview (04/15/2023): Vaginitis;Recorded Elsewhere: No Location: [facility] Source: EHR Chronic: N Practice ID: [id number] Billable Time: 05:00:00 PM 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 Overview (04/15/2023): Disproportion of reconstructed breast;Recorded Elsewhere: No Location: [facility] Source: EHR Chronic: N Practice ID: [id number] Billable Time: 05:00:00 PM Syphilis contact 05/15/2018 Overview (01/05/2023): Encounter for STD screening;Recorded Elsewhere: No Location: [facility] Source: EHR Chronic: N Practice ID: [id number] Billable Time: 05:00:00 PM 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 Overview (04/15/2023): Encounter for STD screening;Recorded Elsewhere: No Location: [facility] Source: EHR Chronic: N Practice ID: 0001 Billable Time: 05:00:00 PM Psoriatic arthritis 10/25/2017 Somniloquy 10/21/2017 Snoring 10/21/2017 Excessive daytime sleepiness 10/21/2017 Lumbar stenosis 10/07/2017 Osteoarthritis of cervical spine 02/15/2017 Neoplasm of skin 01/27/2017 Overview (04/15/2023): Neoplasm of unsp behavior of bone, soft tissue, and skin;Recorded Elsewhere: No Location: [facility] Source: EHR Chronic: N Practice ID: [id number] Billable Time: 10:30:00 AM Lentiginosis 01/27/2017 Overview (04/15/2023): Other melanin hyperpigmentation;Practice ID: 0001 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 Overview (04/15/2023): Leukoplakia of vulva;Practice ID: 0001 Neoplastic disease 01/27/2017 Overview (04/15/2023): Neoplasm of unsp behavior of bone, soft tissue, and skin;Recorded Elsewhere: No Location: [facility] Source: EHR Chronic: N Practice ID: 0001 Billable Time: 10:30:00 AM Vulvitis 12/15/2016 Overview (04/15/2023): Chronic vulvitis;Recorded Elsewhere: No Location: [facility] Source: EHR Chronic: N Practice ID: 0001 Billable Time: 09:30:00 AM Abnormal gait 12/14/2016 Cervical pain (neck) 12/09/2016 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 10/24/[address] of the abdomen 10/09/2015 Cyst of ovary 01/29/2015 Overview (04/15/2023): Other and unspecified ovarian cyst;Recorded Elsewhere: No Location: [facility] Source: EHR Chronic: N Practice ID: [id number] Billable Time: 09:30:00 AM Menopausal symptom 01/17/2015 Overview (04/15/2023): Menopausal symptoms;Recorded Elsewhere: No Location: [facility] Source: EHR Chronic: N Practice ID: [id number] Billable Time: 11:00:00 AM Neoplasm of uncertain behavior of ovary 03/05/20 14 Overview (04/15/2023): Neoplasm of uncertain behavior of ovary;Recorded Elsewhere: No Location: [facility] Source: EHR Chronic: N Practice ID: [id number] Billable Time: 11:45:00 AM Urinary tract infectious disease 01/30/2014 Overview (04/15/2023): Urinary Tract Infection;Recorded Elsewhere: No Location: [facility] Source: EHR Chronic: N Practice ID: [id number] Billable Time: 11:00:00 AM Female genital symptoms 01/30/2014 Overview (04/15/2023): Pelvic pain;Recorded Elsewhere: No Location: [facility] Source: EHR Chronic: N Practice ID: [id number] Billable Time: 11:00:00 AM Amenorrhea 01/30/2014 Overview (04/15/2023): Amenorrhea;Recorded Elsewhere: No Location: [facility] Source: EHR Chronic: N Practice ID: [id number] Billable Time: 11:00:00 AM Dysfunctional uterine bleeding 04/19/2012 Well adult health check 03/24/2012 test negative 03/24/2012 Ill-defined intestinal infection 10/13/2011 Vaginitis and vulvovaginitis 09/15/2011 At risk for sexually transmi tted disease due to unprotected sex 09/15/2011 Overview (04/15/2023): Contact with or exposure to venereal diseases;Recorded Elsewhere: No Location: [facility] Source: EHR Chronic: N Practice ID: [id number] Billable Time: 09:30:00 AM Abdominal pain 03/03/2011 Overview (04/15/2023): Added automatically from request for surgery [id number] Abdominal pain, other specified site;Practice ID: 0001 Blood in urine 03/03/2011 Overview (04/15/2023): HEMATURIA NOS;Recorded Elsewhere: No Location: [facility] Source: EHR Chronic: N Practice ID: [id number] Billable Time: 09:45:00 AM Preoperative evaluation to r ule out surgical contraindication 09/29/2010 Abnormal radiographic examination 09/29/2010 Overview (01/05/2023): Thickened Endometrial Stripe;Practice ID: 0001 Genitourinary complaints 09/29/2010 Pulmonary emphysema Acute bronchitis Immunizations Immunization Administration Dates Next Due Influenza, Quadrivalent, Kay l Culture-based MDCK, Preservative Free, Antibiotic Free, Intramuscular 04/22/2022 Surgical History Surgery Date Site/Laterality Comments NECK SURGERY Neck Surgery - (Added by TW Conv) ME CHOLECYSTECTOMY Cholecystectomy - (Added by TW Conv) ME UNLISTED PROCEDURE BREAST Breast Surgery - (Added by TW Conv) ME EXCISION EXCESSIVE SKIN & SUBQ TISSUE ABDOMEN Abdominoplasty - (Added by TW Conv) UPPER GASTROINTESTINAL ENDOSCOPY COLONOSCOPY Medical History Medical History Date Comments Personal history of other me ntal and behavioral disorders History of depression - (Add ed by TW Conv) Psoriasis Pernicious anemia Vitiligo Sjogren's disease Family History Medical History Relation Name Comments Savanna's thyroiditis Daughter 1 Psoriasis Daughter 2 Hypertension Father Lung cancer Father Inflammatory bowel disease Mother Hypertension Other 1 Family history of hypertension - (Added by TW Conv) Cancer Other 2 Family history of malignant neoplasm - (Added by TW Conv) Anesthesia problems Neg Hx Relation Name Status Comments Daughter 1 Alive Daughter 2 Alive Father Mother Other 1 Other 2 Social History Tobacco Use Types Packs/Day Years Used Date Smoking Tobacco: Former Cigarettes 1 33 1 988 - 2020 Smokeless Tobacco: Never Tobacco Cessation:Counseling [...] on file Sexual Orientation Not on file Obstetrics History Last Filed Vital Signs Vital Sign Reading [...] 11/02/2023 2:51 PM CDT Plan of Treatment Health Maintenance Due Date Last Done Comments Breast Cancer Screening-Mammogram 1969 Cervical Cancer Screening 1969 Colon Cancer Screening-Colonoscopy 1969 Hepatitis C Screening 1969 DTaP/Tdap/Td Vaccine (1 - Tdap) 1980 Hepatitis B Screening 08/28/1987 Regular Well Visit/Exam 18-64 08/28/1987 Pneumococcal vaccine <65 (1 of 2 - PCV) 1988 Lung Cancer Screening 08/28/2019 Zoster Vaccine (1 of 2) 08/28/2019 Depression Screening 08/13/2020 08/14/2019 Influenza Vaccine (Season Ended) 2025 04/22/20 22 Goals Goal Patient Goal Type Associated Problems Recent Progress Patient-Stated? Author CCM Chronic Pain Care Plan Chronic Care Management Worsening( 2:53 PM CDT) Prisca Troy RN Note: Problem: Chronic Pain Goals: 1. Minimize further functional decline 2. Maximize quality of life 3. Control pain Strategies: - Activity/exercise program recommendation - Conservative stepwise pain medicine strategy with multi-disciplinary approach - Recommend healthy lifestyle strategies and compensatory methods as needed Insurance [employer] [place] [employer] [place] Direct[place] For more information, please contact: [phone] Documents on File Type Date Recorded Patient Vp Research Expl anation ADVANCE DIRECTIVE 09/30/2017 10:47 PM ADVANCE DIRECTIVE 09/29/2017 12:00 AM * Full Code (Latest Code Status on File) Date Activated Date Inactivated Comments 01/12/2023 11:29 AM 01/13/2023 10:18 PM * Full Code Date Activated Date Inactivated Comments 10/09/2021 9:12 PM 10/11/2021 8:19 PM * Full Code Date Activated Date Inactivated Comments 08/14/2019 4:38 PM 08/15/2019 10:04 PM Care Teams Recreation Leader Relationship Specialty Start Date End Date Torri Ruiz MD [address] [place], [place] [id number] PCP - General Family Medicine 08/01/24 Miscellaneous, Not In File 01/13/23 Tariq Jain MD [address] [place] [address] Consulting Physician Neurosurgery 01/13/23 Alison Swanson MD [address] [facility] [address] [place] [address] Referring Physician Briefcase Sewer 06/09/23
--- OUTSIDE RECORDS SUMMARY | 2024-10-19 13:14 | XMS_ITS | Encounter Summary ---
Author Organization [facility] Health Address [address] [facility] [place] [address] Care Team Providers Care Heel Cutter Name Role Phone Costa Sanchez MD Primary Care Provider [phone] Yamileth Leon MD Unavailable Encounter Details Date Type Department Care Team (Latest Contact Info) Description 10/19/2024 Travel Social History Tobacco Use Types Packs/Day Years Used Date Smoking Tobacco: Former Cigarettes 1 2018 Smokeless Tobacco: Never Alcohol Use Standard Drinks/Week Comments No 0 (1 standard drink = 0.6 oz pur e alcohol) Comments No Sex and Gender Information Value Date Recorded Sex Assigned at Not on file Legal Sex Female 10:04 AM DROP FORGER Gender Identity Not on file Sexual Orientation Not on file documented as of this encounter Functional Status * Is person deaf or have serious hearing difficulty? Answer Date of Assessment Author No 05/21/2021 10:28 AM Yanci Newman RN * Is person blind or have serious difficulty seeing? Answer Date of Assessment Author No 05/21/2021 10:28 AM Yanci Newman RN * Does person have serious difficulty walking/climbing stairs? Answer Date of Assessment Author No 05/21/2021 10:28 AM Yanci Newman RN * Does person have difficulty dressing/bathing? Answer Date of Assessment Author No 05/21/2021 10:28 AM Yanci Newman RN * Does person have difficulty doing errands alone? Answer Date of Assessment Author No 05/21/2021 10:28 AM Yanci Newman RN documented as of this encounter Mental Status * Does person have difficulty concentrating/remembering/making decisions? Answer Entry Date Author No 05/21/2021 10:28 AM DROP FORGER Yanci Quach RN documented in this encounter Plan of Treatment Upcoming Encounters Date Type Department Care Team (Late st Contact Info) Description 12/15/2024 2:00 PM CDT Office Visit [facility] - Neurology [address] [facility] [place] [address] Deandre Neal, TECHNOLOGY CONSULTANT-IT SYSTEMS ENGINEER [address] [place] [phone] documented as of this encounter Visit Diagnoses Not on filedocumented in this encounter Care Teams Heel Cutter Relationship Specialty Start Date End Date Costa Sanchez MD [address] [place] [address] PCP - General Internal Medicine 08/20/15 Yamileth Leon MD [address] [place] [phone] Rheumatology 03/23/23 documented as of this encounter
--- OUTSIDE RECORDS SUMMARY | 2024-10-19 13:14 | XMS_ITS | Encounter Summary ---
Author Organization [facility] Address [address] [place] [address] Phone Care Team Providers Care Wool Hat Hydraulicker Name Role Phone Costa Sanchez MD Primary Care Provider [phone] Corinna Bain Primary Care Provider [phone] Miscellaneous, Not In File Unavailable Unava ilable Tariq Jain MD Unavailable [phone] Alison Swanson MD Unavailable Rima Carrizales NP Primary Care Provider Mercedez vailable Torri Ruiz MD Primary Care Provider Encounter Details Date Type Department Care Team (Late st Contact Info) Description 08/15/2019 Orders Only [facility] Scanning, Provider Social History Tobacco Use Types Packs/Day Years Used Date Smoking Tobacco: Every Day Cigarettes 0.1 7 Comments:quit one month ago Alcohol Use Standard Drinks/Week Comments Not Currently 0 (1 standard drink = 0.6 oz pur e alcohol) PHQ-2 Answer Date Recorded PHQ-2 Score 2 [...] Date/Time Associated Diagnosis Comments SCAN - RADIOLOGY/IMAGING 08/15/2019 documented in this encounter Results * SCAN - RADIOLOGY/IMAGING (08/15/2019) Anatomical Region Laterality Modality Other us Provider Scanning Final Result documented in this encounter Visit Diagnoses Not on filedocumented in this encounter Care Teams Wool Hat Hydraulicker Relationship Specialty Start Date End Date Costa Sanchez MD [address] [place] [id number] PCP - General 10/19/16 12/14/22 Corinna Bain PA [address] [place] [address] PCP - General Family Practice 12/15/22 09/19/23 Rima Carrizales NP [address] [facility] [address] [place] [address] PCP - General Nurse Practitioner 09/20/23 07/31/24 Torri Ruiz MD [address] [place] [address] PCP - General Family Medicine 08/01/24 Miscellaneous, Not In File 01/13/23 Tariq Jain MD [address] [place] [address] Consulting Physician Neurosurgery 01/13/23 Alison Swanson MD 1 [facility] [address] [place] [address] Referring Physician Puttying And Calking Supervisor 06/09/23 documented as of this encounter
--- OUTSIDE RECORDS SUMMARY | 2024-10-19 13:14 | XMS_ITS | Data Portability ---
Author Organization [facility] Address [address] [place] [address] [address] Care Team Providers Care Dobie Man Name Role Phone ELSI MILLER Primary Care Provider [phone] Assessment Encounter Date Assessment Date Assessment LastModified by Organization Details LastModified Time 05/19/2021 05/19/2021 If culprit for abdominal pain not found by GI we could further evaluate. [email or web address] Not available 09/12/2021 11:48:34 09/03/2021 09/03/2021 Suggest Calcium with Vitamin D if not eating in diet. Patient advised to get annual flu shot. Recommend yearly physicals and preform monthly breast exams. Genetic testing is available for patients with family history of cancer. Engage in safe sexual practices, use condoms. Encouraged to have daily exercise. Avoid tobacco and illicit drugs, moderation of alcohol. If BMI greater than 25 dietary consult advised. If you have any questions please call or email. mammogram order given Not available 09/03/2021 18:46:18 10/24/2021 10/24/2021 pt carolyn well, f/u pending pathology Not available 10/24/2021 15:10:49 Plan of Treatment Reminders Order Date Submit Date Provider Last Modified By Organization Details Last Modified Time Details Appointments None recorded. Lab test, urine 2021 022 8 [address], [address], [place], [address], 09:46:25 Referral None recorded. Procedures None recorded. Surgeries None recorded. Imaging None recorded. Medication Orders nystatin-tr iamcinolone 100,000 unit/gram-0 .1 % topical ointment [address] [facility] ([place] [place]Pharmacy #[id number], [address] [place], [address], 09:48:18 Imvexxy Maintenance Pack 4 mcg vaginal insert [address] [id number], [address] [place], [place], [id number], 16:48:58 clobetasol 0.05 % topical ointment [address] [facility] ([place] [place]) [address], [address], 18:46:00 Patient TargetsNo targets recorded. Patient InstructionsNo instructions recorded. Reason for Referral None Reported. Results Created Date Observation Date Name Description Value Unit Range Abnormal Flag Note LastModifiedBy Organization Detail LastModifiedTime 05/19/20 21 05/19/2021 CULTU RE: AEROB IC/AN AEROB IC result report SEE RESULT S BELOW abnormal Test: Cultu re: Aerob ic/An aerob ic Speci men Sourc e: Other Speci men Type: Micro biolo gy Speci men Speci men Date: 05/19 5:42 PM Resul t Date: 05/22 11:05 AM Resul t Statu s: Final resul t Abnor mal: Yes Resul ting Lab: [facility] [address] [facility] [address] Tel: CULTU RE ----- ----- ----- --- Light Growt h Strep tococ cus agala ctiae (Grou p B) (Abno rmal) Light Growt h Latricia l skin maricruz Cultu re sampl es colle cted from sites that are proxi mal to latricia l anaer obic maricruz , do not provi de usefu l infor matio n. The anaer obic porti on of this cultu re has been credi thien. STAIN ----- ----- ----- --- No organ isms seen Not Available [facility] (Lab) [address] [facility], [place], [address], 05/22/2021 22:18:14 05/19/20 21 05/19/2021 VAGIN ITIS/ VAGIN OSIS, DNA PROBE esme sp. detection, direct probe Negati ve negati ve Not Available [facility] (Lab) [address] [facility], [place], [address], 05/22/2021 22:18:14 05/19/20 21 05/19/2021 VAGIN ITIS/ VAGIN OSIS, DNA PROBE gardnerella vag. detection, direct probe Positi ve negati ve abnormal Not Available [facility] (Lab) [address] [facility], [place], [address], 05/22/2021 22:18:14 05/19/20 21 05/19/2021 VAGIN ITIS/ VAGIN OSIS, DNA PROBE trichomonas vag. detection, direct probe Negati ve negati ve Not Available [facility] (Lab) [address] [facility], [place], [address], 05/22/2021 22:18:14 05/19/20 21 05/19/2021 SURGI ALMITA PATHO LOGY surgical pathology SEE RESULT S BELOW CASE REPOR T: Surgi almita Patho logy Repor t Case: [id number] Autho eneida moreira Provi helen: Lorna Raymundo, ROHIT Colle cted: 05/19 1742 Order ing Locat ion: [place] Patho log[facility] Recei fang: 05/20 0031 Patho logis t: Frances Dyer MD Speci men: Bilat eral labia l eryth alessio and white cakin g FINAL DIAGN OSIS: Labia , biops y: -Lich en simpl ex chron icus. Elect sharon dugan by Frances Dyer MD on 05/21 at 11:06 AM ----- ----- ----- ----- ----- ----- ----- ----- ----- ----- ----- ----- ----- ----- ----- ----- ----- ---- COMME NT: Secti ons show labia l skin with benig n squam ous hyper plasi a inclu ding acant hosis , suraj ct hyper kerat osis and a thick ened granu lar layer . There are no intra epith elial neutr ophil s seen. Multi ple level s are exami ronn and a PAS funga l stain was perfo rmed and is negat stevan for organ isms. The findi ngs are consi stent with liche n simpl ex chron icus. There is no dyspl augustin or neopl augustin ident ified . CLINI ALMITA INFOR MATIO N: not provi ded MICRO SCOPI C DESCR IPTIO N: A micro scopi c exami natio n was perfo rmed. GROSS DESCR IPTIO N: A. U. The speci men is label ed with the petronae nt's name, demog pakoi cs and labi al adhes ion . Recei fang in forma anamaria are 2 fragm ents of franks tissu e measu ring 0.2 and 0.3 cm. This submi tted all in casse tte A1. Gross ed by Anjel Martinez on Not Available [facility] (Lab) [address] [facility], [place], [address], 05/22/2021 22:18:15 05/19/20 21 05/19/2021 CULTU RE: HERPE S SIMPL EX VIRUS (HSV) , REFLE X TYPIN G source SWAB Not Available [facility] (Lab) [address] [facility], [place], [address], 05/22/2021 22:18:15 05/19/20 21 05/19/2021 CULTU RE: HERPE S SIMPL EX VIRUS (HSV) , REFLE X TYPIN G hsv culture, body fluid NOT ISOLAT ED REFER ENCE RANGE : NOT ISOLA THIEN Bilat eral labia l eryth alessio and white cakin g Perfo rming Organ izati on Infor matio n: Site ID: [id number] Name: [facility] Addre ss: [id number] [place] [place] [address] Direc tor: Alyssa mann MD Not Available [facility] (Lab) [address] [facility], [place], [address], 05/22/2021 22:18:15 09/05/19 22 09/04/2021 IMAGE GUIDE D PAP AND HPV REGAR DLESS image guided Pap, HPV regardless of Pap result SEE RESULT S BELOW abnormal CASE REPOR T: Cytol ogy Gynec ologi almita Repor t Case: [id number] Autho eneida moreira Provi helen: Lizy Todd NP Colle cted: 09/04 1555 Order ing Locat ion: [place] Patho logy Recei fang: 09/05 0130 First Scree n: Piedad Finley ret, CT Patho logis t: Steven Alberto MD Speci men: Scree lopez Pap - Image d, Cervi x STATE MENT OF ADEQU ACY: Satis facto ry for evalu ation Trans forma tion zone compo nent absen t FINAL DIAGN OSIS: Epith elial Cell Abnor malit y, Squam ous Cell: Low Grade Squam ous Intra epith elial Lesio n (LSIL ). Elect sharon hauser d by Steven Alberto MD on 022 at 8:03 AM ----- ----- ----- ----- ----- ----- ----- ----- ----- ----- ----- ----- ----- ----- ----- ----- ----- ---- HPV RESUL TS: HPV mRNA E6/E7 : No HPV mRNA Detec thien NOTE: This high risk HPV mRNA assay detec ts fourt een high- risk HPV types (16, 18, 31, 33, 35, 39, 45, 51, 52, 56, 58, 59, 66, 68) witho ut diffe renti ation . COMME NT: Note: This speci men was revie wed by a Cytot echno logis t and/o r Patho logis t (as indic ated in this repor t) after evalu ation using the Thinp rep Imagi ng Syste m. CLINI ALMITA INFOR MATIO N: Menst rual Statu s: LMP (if appli cable ): Clini almita Histo ry/Pr eviou s Pap: Type of Neopl augustin (if appli cable ): Signi fican t Clini almita Findi ngs: Other Histo ry: Hormo liberty (if appli cable ): MILES HERNANDEZ FOLLO W-UP: Follo w up as warra nted, based on curre nt guide lines and indiv idual patie nt consi derat ions. Not Available [facility] (Lab) [address] [facility], [place], [address], 09/12/2021 09:05:45 10/25/19 22 10/24/2021 SURGI ALMITA PATHO LOGY surgical pathology SEE RESULT S BELOW CASE REPOR T: Surgi almita Patho logy Repor t Case: [id number] Autho eneida moreira Provi helen: Lizy Todd NP Colle cted: 10/24 1631 Order ing Locat ion: [place] Patho logy Recei fang: 10/25 0247 Patho logis t: Kiera Moreira MD Speci men: Endoc ervix , ECC bx FINAL DIAGN OSIS: Endoc ervix , curet tage: -Rare , minut e fragm ents of epith elium and infla mmati on; insuf ficie nt for compl ete histo logic evalu ation . Jerod turpinyaneth hauser d by Kiera Moreira MD on 2021 at 12:31 PM ----- ----- ----- ----- ----- ----- ----- ----- ----- ----- ----- ----- ----- ----- ----- ----- ----- ---- COMME NT: The previ ous Pap smear (CDG2 [id number]) and HPV mRNA test resul ts are noted . CLINI ALMITA INFOR MATIO N: r87.6 12 MICRO SCOPI C DESCR IPTIO N: A micro scopi c exami natio n was perfo rmed. GROSS DESCR IPTIO N: A. Endoc ervix . The speci men is label ed with the patie nt's name, demog raphi cs and ECC . Recei fang in forma anamaria is a 1.0 x 1.0 x 0.2 cm aggre gate of mucus and minut e white -franks tissu e. The entir e speci men is submi tted in one casse tte. Gross ed by Anali pappas Not Available [facility] (Lab) [address] [facility], [place], [address], 10/27/2021 13:34:40 10/25/19 22 10/24/2021 pregn pal test, urine HCG negati ve Not Available [place] [address], [place], [address], 10/24/2021 14:52:58 03/18/20 22 03/18/2022 SURGI ALMITA PATHO LOGY surgical pathology SEE RESULT S BELOW CASE REPOR T: Surgi almita Patho logy Repor t Case: [id number] Autho eneida moreira Provi helen: Lizy Todd NP Colle cted: 03/18 1533 Order ing Locat ion: [place] Patho logy Recei fang: 03/19 0317 Patho logis t: Frandy Luna rd, MD Speci mens: A) - Endoc ervix , ECC brush bx B) - Cervi x, Cervi almita spira brush bx FINAL DIAGN OSIS: A. Endoc ervix ; brush biops y: Scant detac hed fragm ent of benig n squam ous epith elium , negat stevan for dyspl augustin, no endoc ervic al tissu e ident ified B. Cervi x; spira brush biops y: Detac hed fragm ents of benig n squam ous epith elium , negat stevan for dyspl augustin Elect sharon petty analisa d by Frandy Luna rd, MD on 03/19 at 1:32 PM ----- ----- ----- ----- ----- ----- ----- ----- ----- ----- ----- ----- ----- ----- ----- ----- ----- ---- CLINI ALMITA INFOR MATKIM N: R87.6 12 MICRO SCOPI C DESCR IPTIO N: A micro scopi c exami natio n was perfo rmed. GROSS DESCR IPTIO N: A. Endoc ervix . The speci men is label ed with the patie nt's name, demog raphi cs and ECC . Recei fang in forma anamaria is a less than 0.1 cm aggre gate of mucus and minut e white -franks tissu e. The entir e speci men is filte red throu gh a filte r bag and is submi tted in one casse tte; howev er, defin itive tissu e may not survi ve proce ssing . Gross ed by Jordon Churchill Cervi x. The speci men is label ed with the patie nt's name, demog raphi cs and cervi almita spin brush biops y. Recei fang in forma anamaria is a 0.5 x 0.3 x 0.1 cm aggre gate of mucus and minut e white -franks tissu e. The entir e speci men is submi tted in one casse tte. Gross ed by Jordon Briseno Not Available [facility] [address] [place], [address], 03/23/2022 16:50:07 03/18/20 22 03/18/2022 IMAGE GUIDE D PAP AND HPV REGAR DLESS image guided Pap, HPV regardless of Pap result SEE RESULT S BELOW CASE REPOR T: Cytol ogy Gynec ologi almita Repor t Case: [id number] Autho eneida moreira Provi helen: Lizy oTdd NP Colle cted: 03/18 175 Order ing Locat ion: [place] Patho logy Recei fang: 03/19 0424 First Scree n: Cat Boswell Speci men: Scree lopez Pap - Image d, Cervi x STATE MENT OF ADEQU ACY: Satis facto ry for evalu ation Trans forma tion zone compo nent prese nt FINAL DIAGN OSIS: Negat stevan for Intra epith elial Shady chin or Coco cosme (NIL) . Elect sharon petty analisa d by Cat Boswell ica on 03/23 at 3:47 PM ----- ----- ----- ----- ----- ----- ----- ----- ----- ----- ----- ----- ----- ----- ----- ----- ----- ---- HPV RESUL TS: HPV mRNA E6/E7 : No HPV mRNA Detec thien NOTE: This high risk HPV mRNA assay detec ts fourt een high- risk HPV types (16, 18, 31, 33, 35, 39, 45, 51, 52, 56, 58, 59, 66, 68) witho ut diffe renti ation . COMME NT: Note: This speci men was revie wed by a Cytot echno logis t and/o r Patho logis t (as indic ated in this repor t) after evalu ation using the Thinp rep Imagi ng Syste m. CLINI ALMITA INFOR MATIO N: Menst rual Statu s: LMP (if appli cable ): Clini almita Histo ry/Pr eviou s Pap: Type of Neopl augustin (if appli cable ): Signi fican t Clini almita Findi ngs: Other Histo ry: Hormo liberty (if appli cable ): PAP EDUCA MALU L NOTE: The Pap Test is a scree lopez test with an inher ent false negat stevan rate. Liqui d-bas ed sampl ing may decre ase, but will not elimi maxine, false negat stevan resul ts. A negat stevan resul t does not precl ude the prese nce and/o r devel opmen t of disea se, since the prese nce of abnor mal cells in the sampl e depen ds on the locat ion of the lesio n and sampl ing techn ique. Luis nued regul ar scree lopez is the best metho d of cance r preve ntion . If repor thien cytol ogic findi ng do not corre late with physi almita and/o r histo rical findi ngs, furth er inves tigat ion is recom janusz d, as clini kayy eastman nted. Not Available [facility] [address] [place], [address], 03/23/2022 16:50:08 03/18/20 22 03/18/2022 pregn pal test, urine HCG negati ve Not Available [place] [address], [place], [address], 03/18/2022 09:38:41 Result Notes None recorded. Problems Name Problem SNOMED Code Status Onset Date Resolution Date Notes Provider Name and Address Organization Details Recorded Time Menopaus al symptom 59802824 Completed 201403/07/2021 Menopaus al symptoms ;Recorde d Elsewher e: No Locat ion: [facility] [employer] S ource: [employer] nate: N Singhti ce ID: 0001 Von lable Time: 11:00:00 AM Rosemary lima [facility] 15:55:04 Cyst of ovary [id number] Completed 201403/07/2021 Other and unspecif ied ovarian cyst;Rec orded Elsewher e: No Locat ion: [facility] S ource: [employer] nate: N Singhti ce ID: 0001 Von lable Time: 09:30:00 AM [facility] 15:55:27 Amenorrh ea [id number] Completed 201303/07/2021 Amenorrh ea;Recor ded Elsewher e: No Locat ion: [facility] N Singhti ce ID: 0001 Von lable Time: 11:00:00 AM Rosemary lima [facility] 15:54:49 Adult health examinat ion Completed 201103/07/2021 Routine Medical Exam;Rec orded Elsewher e: No Locat ion: [facility] Vern Singhti ce ID: 0001 Von lable Time: 10:15:00 AM Rosemary lima [facility] 15:55:10 Blood in urine [id number] Completed 201003/07/2021 HEMATURI A NOS;Marshall rded Elsewher e: No Locat ion: [facility] S ource: [employer] ante: N Singhti ce ID: 0001 Von lable Time: 09:45:00 AM Rosemary lima [facility] 15:55:14 Dysfunct ional uterine bleeding Completed 201103/07/2021 Other disorder s of menstrua tion and other abnormal bleeding from female genital tract;Re corded Elsewher e: No Locat ion: [facility] S ource: [employer] nate: N Practi ce ID: 0001 Von lable Time: 01:15:00 PM Rosemary lima [facility] 15:54:51 Screenin g for malignan t neoplasm of rectum Completed 201703/07/2021 Encounte r for screenin g for malignan t neoplasm of rectum;R ecorded Elsewher e: No Locat ion: [facility] S ource: [employer] nate: N Practi ce ID: 0001 Von lable Time: 05:00:00 PM Rosemary lima, [facility] 15:55:11 Neoplasm of uncertai n behavior of ovary [id number] Completed 201303/07/2021 Neoplasm of uncertai n behavior of ovary;Re corded Elsewher e: No Locat ion: [facility] N Practi ce ID: 0001 Von lable Time: 11:45:00 AM Rosemary lima, [facility] 15:55:[address] Concept Completed 201503/07/2021 Encntr for general adult medical exam w/o abnormal findings ;Recorde d Elsewher e: No Locat ion: [facility] S ource: [employer] nate: N Practi ce ID: 0001 Von lable Time: 10:30:00 AM Rosemary lima [facility] 15:55:15 Female genital organ symptoms [id number] Completed 201303/07/2021 Pelvic pain;Rec orded Elsewher e: No Locat ion: [facility] S ource: [employer] nate: N Practi ce ID: 0001 Von lable Time: 11:00:00 AM Rosemary lima [facility] 10/01/202 1 15:54:56 Acute vaginiti s [id number] Completed 201703/07/2021 Vaginiti s;Record ed Elsewher e: No Locat ion: [facility] [employer] S ource: [employer] nate: N Singhti ce ID: 0001 Von lable Time: 05:00:00 PM Rosemarymarcel Brunner [facility] 1 15:55:07 At increase d risk of sexually transmit thien infectio n 701950405 Completed 201103/07/2021 Contact with or exposure to venereal diseases ;Recorde d Elsewher e: No Locat ion: [facility] [employer] [facility] S ource: [employer] nate: N Practi ce ID: 0001 Von lable Time: 09:30:00 AM Rosemary Brunner [facility] 15:55:22 Dispropo rtion of reconstr ucted breast [id number] 9101 Completed 201703/07/2021 Dispropo rtion of reconstr ucted breast;R ecorded Elsewher e: No Locat ion: [facility] [employer] [facility] S ource: [employer] nate: N Practi ce ID: 0001 Von lable Time: 05:00:00 PM Rosemary lima [facility] 1 15:54:31 Menopaus e present [id number] Completed 201503/07/2021 Symptoms such as flushing , sleeples sness, headache , lack of concentr ation, associat ed with natural (age-rel ated) menopaus e;Record ed Elsewher e: No Locat ion: [facility] [employer] [facility] S ource: [employer] nate: N Practi ce ID: 0001 Von lable Time: 10:30:00 AM Rosemary lima [facility] 1 15:55:13 Urinary tract infectio us disease [id number] Completed 201303/07/2021 Urinary Tract Infectio n;Record ed Elsewher e: No Locat ion: [facility] S ource: [employer] nate: N Practi ce ID: 0001 Von lable Time: 11:00:00 AM [facility] 15:55:26 Neoplast ic disease [id number] Completed 201603/07/2021 Neoplasm of unsp behavior of bone, soft tissue, and skin;Rec orded Elsewher e: No Locat ion: [facility] S ource: [employer] nate: N Practi ce ID: 0001 Von lable Time: 10:30:00 AM [facility] 15:54:33 Radiolog y result abnormal [id number] Completed 201003/07/2021 Thickene d Endometr ial Stripe;P ractice ID: 0001 Rosemary Brunner [facility] 15:55:23 Procedur e on genitour inary system Completed 201003/07/2021 Steriliz ation;Pr actice ID: [address] [facility], [facility] 15:55:24 Pre-surg lucio evaluati on Completed 201003/07/2021 Pre-oper ative examinat ion, unspecif ied;Prac jillian ID: [address] [facility] 15:54:30 Abdomina l pain [id number] Completed 201003/07/2021 Abdomina l pain, other specifie d site;Pra ctice ID: 0001 Rosemary Kannan clarence [facility] 15:55:02 Vaginiti s and vulvovag initis Completed 201103/07/2021 Vaginiti s and vulvovag initis, unspecif ied;Prac jillian ID: 0001 Rosemary lima, [facility] 15:54:53 Ill-defi ronn intestin al infectio n Completed 201103/07/2021 No Show Fee;Prac jillian ID: 0001 Rosemary lima, [facility] 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 15:55:19 Syphilis test finding [id number] Completed 201703/07/2021 Encounte r for STD screenin g;Record ed Elsewher e: No Locat ion: [facility] S ource: [employer] nate: N Singhti ce ID: 0001 Von lable Time: 05:00:00 PM Rosemary lima, [facility] 15:55:20 Vulvitis 36118213 Completed 201603/07/2021 Chronic vulvitis ;Recorde d Elsewher e: No Locat ion: [facility] S ource: [employer] nate: N Practi ce ID: 0001 Von lable Time: 09:30:00 AM Rosemary lima, [facility] 15:55:06 Pregnanc y test negative [id number] Completed 201103/07/2021 Pregnanc y examinat ion or test, negative result;R ecorded Elsewher e: No Locat ion: [facility] S ource: [employer] nate: N Singhti ce ID: 0001 Von lable Time: 10:15:00 AM Rosemary lima, [facility] 15:55:09 Lentigin osis Completed 201603/07/2021 Other melanin hyperpig mentatio n;Singhti ce ID: 0001 Rosemary lima [facility] 15:55:01 Leukopla josé manuel of vulva [id number] Completed 201603/07/2021 Leukopla josé manuel of vulva;Pr actice ID: 0001 Rosemary lima, [facility] 15:54:[address] Concept Completed 201703/07/2021 Encounte r for general tentering machine feeder exam with abnormal findings ;Recorde d Elsewher e: No Locat ion: [facility] S ource: [employer] nate: N Practi ce ID: 0001 Von lable Time: 05:00:00 PM Rosemary lima [facility] 15:55:17 Problem Notes None recorded. Procedures Surgical History Date Name Laterality Status Provider Name and Address Organization Details Recorded Time Colposcopy completed Lizy Coy CNM [address], [place], [address], [facility] 03/18/2022 09:49:56 Colposcopy completed Chana Moyer [facility] 03/18/2022 09:32:55 Date of Last Pap Smear completed Chana Moyer [facility] 03/18/2022 15:35:20 Colposcopy completed Chana Moyer [facility] 03/18/2022 09:33:40 Colposcopy completed Lizy Coy CNM [address], [place], [address], [facility] 10/24/2021 15:10:24 022 Colposcopy completed Chana Moyer [facility] 10/24/2021 14:45:31 021 [facility] labial cyst [facility] 15:08:25 021 Vulvar Biopsy completed Lorna Bailey [facility] 09/12/2021 11:37:06 020 Date of Last Mammogram completed [facility] 03/10/2021 17:34:42 020 completed [facility] 03/10/2021 17:34:45 018 operative procedure on spinal structure [facility] 12/04/2019 09:47:06 017 biopsy of vulva completed [facility] 12/20/2020 11:37:14 014 bone fusion completed [facility] 12/04/2019 09:48:47 014 operation on neck [facility] 12/04/2019 09:49:07 012 endometrial biopsy [facility] 09/04/2021 15:08:55 011 Laparoscopy completed [facility] 09/04/2021 15:08:43 010 Jaw arthroscopy/surger y completed [facility] 12/04/2019 09:45:25 009 augmentation mammoplasty completed [facility] 12/04/2019 09:43:42 008 Breast augmentation w/implt completed [facility] 09/04/2021 15:07:55 008 augmentation mammoplasty completed [facility] 12/04/2019 09:43:53 005 cholecystectomy completed [facility] 12/04/2019 09:44:37 003 section completed [facility] 12/20/2020 11:35:43 001 Gastric Bypass completed [facility] 12/04/2019 09:44:15 994 section completed [facility] 12/20/2020 11:35:15 991 section completed [facility] 12/20/2020 11:35:27 Imaging Results None recorded. Procedure Notes None recorded. Medical Equipment None Reported. Allergies Allergen ID Allergen Name Allergen Category Reaction Reaction Severity Criticality Documentation Date Start Date Code Code System Note Provider Name and Address Organization Details Recorded Time 45127 clarithro mycin medicatio n Not available Not available Not available 05/24/202034773 RxNorm Rosemary Brunner [facility] 15:51:31 80374 latex environme nt,medica tion Not available Not available Not available 05/24/2020 83730 91 RxNorm Chana Moyer [facility] 2 15:30:05 Medications Name Sig Start Date Stop Date Status Note LastModified by Organization Details LastModified Time multivita min tablet TAKE 1 TABLET BY MOUTH TWICE A DAY active Not Available Not Available No t Available Prometriu m 200 mg capsule take 1 capsule by oral route at bedtime for 12 days 12/29 completed Prescrib ed Elsewher e: No Locat ion: [employer] [facility] odify By: kimmy ivory DateTime : 12/19/19 15 11:15:19 AM Not Available Not Available Not Available amoxicill in 500 mg capsule take 1 capsule (500MG) by oral route 3 times every day for 10 days 03/07 completed Not Available Not Available Not Available bupropion HCl SR 150 mg tablet,12 hr sustained -release TAKE 1 TABLET BY MOUTH TWICE A DAY active Not Available Not Available No t Available prednison e 10 mg tablet TAKE 3 TABLETS BY MOUTH DAILY FOR 3 DAYS THEN TAKE 2 TABLETS BY MOUTH DAILY FOR 3 DAYS THEN TAKE 1 TABLET BY MOUTH DAILY WITH FOOD FOR 3 DAYS active Not Available Not Available No t Available doxycycli ne hyclate 100 mg capsule TAKE 1 CAPSULE BY MOUTH TWICE DAILY 09/26 completed Not Available Not Available Not Available Neurontin 300 mg capsule take 1 capsule by oral route 3 times every day 04/19 completed Prescrib ed Elsewher e: Yes Loca tion: [employer] [facility] odify By: elaina agosto DateTime : 09/15/19 12 09:30:00 AM Not Available Not Available Not Available Carafate 100 mg/mL oral suspensio n take 10 millilit er by oral route 4 times every day on an empty stomach 1 hour before meals and at bedtime 03/07 completed Prescrib ed Elsewher e: Yes [facility] odify By: ar ivory DateTime : 10/09/19 16 10:30:00 AM Not Available Not Available Not Available sulfasala zine 500 mg tablet take 1 tablet by oral route 4 times every day after meals 06/01 completed Prescrib ed Elsewher e: Yes [facility] odify By: alvaro perez DateTime : 12/16/19 17 09:30:00 AM Not Available Not Available Not Available albuterol sulfate 2.5 mg/3 mL (0.083 %) solution for nebulizat ion USE 1 VIAL VIA NEBULIZE R FOUR TIMES DAILY NEEDED 04/22 /2022 completed Not Available Not Available Not Available trazodone 50 mg tablet TAKE 1 TABLET BY MOUTH AT BEDTIME active Not Available Not Available No t Available azithromy faith 250 mg tablet TAKE 2 TABLETS BY MOUTH TODAY, THEN TAKE 1 TABLET DAILY FOR 4 DAYS 03/07 completed Not Available Not Available Not Available tizanidin e 4 mg tablet TAKE 1 TABLET BY MOUTH TWICE DAILY NEEDED active Not Available Not Available No t Available fluconazo le 150 mg tablet TAKE 1 TABLET BY MOUTH NOW 05/19 completed Not Available Not Available Not Available cimetidin e 400 mg tablet TAKE 1 TABLET BY MOUTH AT BEDTIME active Not Available Not Available No t Available Lotrisone 1 %-0.05 % topical cream apply by topical route 2 times every day for 2 weeks to the affected and surround ing areas of skin in the morning and evening 12/26 completed Prescrib carmelita Franks e: No Locat ion: [facility] odify By: lbpedrohar tz Encou nter DateTime : 12/14/19 13 01:00:00 PM Not Available Not Available Not Available hydrocodo ne 5 mg-acetam inophen 325 mg tablet TAKE 1 TABLET BY MOUTH TWICE DAILY FOR 7 DAYS NEEDED 09/26 completed Not Available Not Available Not Available ondansetr on HCl 8 mg tablet TAKE 1 TABLET BY MOUTH THREE TIMES DAILY NEEDED active Not Available Not Available No t Available [id number]|2024-10-19 13:15:00|2024-10-19 13:14:00|XMS_ITS|ROMARIO CONNER|External Medical Summaries|[id number]|" Continuity of Care Document Created on: October 19, 2024 GADIEL KRAFT : 1970 Sex: Female Author Name [facility] Address [address] [address] Organization [facility] Care Team Providers Care Dobie Man Name Role Phone [facility] Un[facility] Unavailable Problems Problem Status Onset Date Problem Type Date of Resolution Comments Source 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 Diagnosis Neck pain (finding) 09/26/2024 Diagnosis Spinal stenosis in cervical region (disorder) 02/08/2024 Diagnosis Attention deficit hyperactivity disorder, predominantly inattentive type (disorder) Active Condition Depressive disorder (disorder) Active Condition Gastroesophageal reflux disease (disorder) Active Condition Headache (finding) Active Condition History of bariatric surgical procedure (situation) Active Condition Past history of clinical finding (context-dependent category) Active Condition History of - TIA (context-dependent category) Active Condition Lymphedema (disorder) Active Condition Neuropathy (disorder) Active Condition Pernicious anemia (disorder) Active Condition Psoriasis (disorder) Active Condition Psoriatic arthritis (disorder) Active Condition Pulmonary emphysema (disorder) Active Condition Smoker (finding) Active Condition 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 Diagnosis 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) Diagnosis Depressive disorder (disorder) Diagnosis Pulmonary emphysema (disorder) Diagnosis Gastroesophageal reflux disease without esophagitis (disorder) Diagnosis History of - TIA (context-dependent category) Diagnosis Long-term current use of drug therapy (situation) Diagnosis History of - Disorder (context-dependent category) Diagnosis Medications Medication Details Route Status Patient Instructions Ordering Provider Order Date Source 12 HR orphenadrine citrate 100 MG Extended Release Oral Tablet 100 mg = 1 Tablet(s), Oral, bid Active [facility] buspirone hydrochloride 7.5 MG Oral Tablet 7.5 mg = 1 Tablet(s), Oral, bid, Scheduled / PRN PRN Anxiety Active [facility] Nortriptyline 10 MG Oral Capsule 30 mg = 3 capsule(s), Oral, At Bedtime Active [facility] Alendronic acid 70 MG Oral Tablet [Fosamax] 70 mg = 1 Tablet(s), Oral, qThursday Active [facility] magnesium citrate 100 MG Oral Capsule 100 mg = 1 capsule(s), Oral, Daily Active [facility] Vitamin B12 1000 mcg oral tablet 1,000 mcg = 1 Tablet(s), Oral, Daily Active [facility] Vitamin D3 (cholecalciferol) 25 mcg (1000 intl units) oral tablet 25 mcg = 1 Tablet(s), Oral, Daily Active [facility] Acetaminophen 250 MG / Aspirin 250 MG / Caffeine 65 MG Oral Tablet [Excedrin] 2 Tablet(s), Oral, q6h Active 024 [facility] Naproxen sodium 220 MG Oral Tablet [Aleve] 440 mg = 2 Tablet(s), Oral, At Bedtime Active 024 [facility] magnesium citrate B, Oral, Refill(s) 0 Active 024 [facility] Vitamin B12 Refill(s) 0 Active 024 [facility] Excedrin Express A, Oral, q6h, Refill(s) 0 Active 024 [facility] Aleve 220 mg, Oral, q12h, Refill(s) 0 Active 024 [facility] Cholecalciferol Oral, Refill(s) 0 Active 024 [facility] HEMP EXTRACT CREAM HEMP EXTRACT CREAM, Refill(s) 0 Active 024 [facility] BHI NAUSE RELEIF BHI NAUSE RELEIF, Refill(s) 0 Active 024 [facility] CBD TAB CBD TAB, Refill(s) 0 Active 024 [facility] Allergies, Adverse Reactions, Alerts Substance Category Reaction Severity Reaction type Status Date Reported Comments Source gabapentin Assertion Drug allergy [facility] pregabalin Assertion Drug allergy [facility] Results Order Name Results Value Reference Range Date Interpretation Comments Source XR Spine Cervical w/ Flext and/or Ext XR Spine Cervical w/ Flext and/or Ext XR General Diagnostic Accession # Exam Date/Time Procedure Ordering Provider [id number] 08/23/2024 13:54 CDT XR Spine Cervical w/ Sell INSTRUMENT INSPECTOR, Kasia Tammy Flext and/or Ext Reason For Exam (XR Spine Cervical w/ Flext and/or Ext) cervical fusion Report EXAMINATIO N: XR Spine Cervical w/ Flext and/or Ext INDICATION : cervical fusion VIEWS: 4 COMPARISON : 08/09/2023 and multiple prior FINDINGS: Redemonstr ated C5-C6 ACDF, C3-C5 posterior decompress ion and fusion, and bilateral mandibular reconstruc tion without hardware complicati ons. The alignment is unchanged with trace retrolisth esis of C3-C4. No dynamic listhesis with flexion or extension. Soft tissues are unremarkab le. Visualized lungs are clear. IMPRESSION : Postsurgic al changes without hardware complicati on and unchanged alignment. I have personally reviewed the images and attest to the contents of this report. * * *Final Report* * * Electronic ally Signed by: Corina Galan DO Signed on: 08/23/24 15:57 08/23 13:32 :54 [facility] XR Spine Cervical XR Spine Cervical XR General Diagnostic Accession # Exam Date/Time Procedure Ordering Provider [id number] 04/26/2024 12:36 COLLETER XR Spine Cervical Sell INSTRUMENT INSPECTOR, Kasia Tammy Reason For Exam (XR Spine Cervical) s/p cervical surgery Report EXAMINATIO N: XR Spine Cervical INDICATION : s/p cervical surgery VIEWS: 4 COMPARISON : Cervical spine radiograph dated 08/28 FINDINGS: Postsurgic al changes of C5-C6 ACDF, C3-C5 posterior instrument ed spinal fusion and bilateral mandibular reconstruc tion/fixat ion without evidence of hardware fracture or loosening. Revisualiz e grade 1 retrolisth esis of C3 on C4, slightly improved with flexion. Diminished normal cervical lordosis. Prevertebr al soft tissues are within normal limits. Normal bony alignment of the craniocerv ical junction. The vertebral bodies are normal in height. IMPRESSION : Stable postsurgic al changes without evidence of hardware complicati on or spinal instabilit y. I have personally reviewed the images and attest to the contents of this report. * * *Final Report* * * Electronic ally Signed by: Aleyda Early MD Signed on: 04/26/24 13:25 04/26 12:25 :56 [facility] GENERAL CHEMISTRY BUN 11 mg/dL 6 - 02/11 06:54 :00 [facility] GENERAL CHEMISTRY Calcium 9.1 mg/dL 8.3 - 10.6 02/11 06:54 :00 [facility] GENERAL CHEMISTRY Glucose Lvl 129 mg/dL 70 - 139 02/11 06:54 :00 [facility] GENERAL CHEMISTRY Chloride 105 mmol/L 98 - 107 02/11 06:54 :00 [facility] GENERAL CHEMISTRY Sodium 138 mmol/L 136 - 145 02/11 06:54 :00 [facility] GENERAL CHEMISTRY Potassium 3.8 mmol/L 3.5 - 5.1 02/11 06:54 :00 [facility] GENERAL CHEMISTRY CO2 27 mmol/L 20 - 31 02/11 06:54 :00 [facility] GENERAL CHEMISTRY Anion gap 10 mmol/L 0 - 20 02/11 06:54 :00 [facility] GENERAL CHEMISTRY Creatinine, standardized 0.4 mg/dL 0.5 - 1.0 02/11 06:54 :00 Interpretive Data: Izdziu-gl-rom e transgender patients on testosterone therapy should have results assessed using the male reference range. Nwrk-vv-zgcob e transgender patients on hormone-modul ating therapy clinical judgment is advisedfor assessment. [facility] GENERAL CHEMISTRY Estimated GFR for Adults 120 mL/min/1.7 3m 02/11 06:54 :00 Interpretive Data: Changed to CKD-EPI 2020 on 2020. [facility] GENERAL CHEMISTRY Estimated GFR for peds Not calculated 02/11 06:54 :00 Interpretive Data: The estimated GFR was calculated using the B winsome Dickerson equation (2009) . Reference: Pediatric GFR calculator at [employer] Website. [facility] HEMATOLOGY PROFILES WBC 9.81 x10(9)/L 3.50 - 10.50 02/11 06:54 :00 [facility] HEMATOLOGY PROFILES RBC 4.63 x10(12)/L 3.90 - 5.03 02/11 06:54 :00 [facility] HEMATOLOGY PROFILES HGB 12.2 g/dL 12.0 - 15.5 02/11 06:54 :00 Interpretive Data: Umsuzq-if-rio e transgender patients on testosterone therapy should have results assessed using the male reference range. Nksa-of-bcklu e transgender patients on hormone-modul ating therapy clinical judgment is advisedfor assessment. [facility] HEMATOLOGY PROFILES HCT 37.0 % 34.9 - 44.5 02/11 06:54 :00 Interpretive Data: Jlcseg-dg-jfl e transgender patients on testosterone therapy should have results assessed using the male reference range. Ddej-ft-nedzt e transgender patients on hormone-modul ating therapy clinical judgment is advisedfor assessment. [facility] HEMATOLOGY PROFILES MCV 79.9 fL 81.6 - 98.3 02/11 06:54 :00 [facility] HEMATOLOGY PROFILES MCH 26.3 pg 26.0 - 33.0 02/11 06:54 :00 [facility] HEMATOLOGY PROFILES MCHC 33.0 g/dL 32.0 - 36.0 02/11 06:54 :00 [facility] HEMATOLOGY PROFILES RDW CV 21.5 % 11.9 - 15.5 02/11 06:54 :00 [facility] HEMATOLOGY PROFILES RDW SD 61.3 fL 36.4 - 46.3 02/11 06:54 :00 [facility] HEMATOLOGY PROFILES PLT 316 x10(9)/L 150 - 450 02/11 06:54 :00 [facility] HEMATOLOGY PROFILES MPV 8.4 8.0 - 12.0 02/11 06:54 :00 [facility] HEMATOLOGY PROFILES % Nucleated RBCs 0.0 % 02/11 06:54 :00 [facility] HEMATOLOGY PROFILES Absolute Nucleated RBCs 0.0 x10(9)/L 0.0 - 0.0 02/11 06:54 :00 Interpretive Data: Normal values not established in patients less than 18 years old. [facility] HEMATOLOGY PROFILES % Neutrophils 75.7 % 02/11 06:54 :00 [facility] HEMATOLOGY PROFILES % Lymphocytes 14.5 % 02/11 06:54 :00 [facility] HEMATOLOGY PROFILES % Monocytes 7.1 % 02/11 06:54 :00 [facility] HEMATOLOGY PROFILES % Eosinophils 2.2 % 02/11 06:54 :00 [facility] HEMATOLOGY PROFILES % Basophils 0.4 % 02/11 06:54 :00 [facility] HEMATOLOGY PROFILES % Immature Granulocytes 0.10 % 0.02 - 0.42 02/11 06:54 :00 [facility] HEMATOLOGY PROFILES Absolute Granulocytes 7.42 x10(9)/L 1.70 - 7.00 02/11 06:54 :00 [facility] HEMATOLOGY PROFILES Abs Lymphocytes 1.42 x10(9)/L 0.90 - 2.90 02/11 06:54 :00 [facility] HEMATOLOGY PROFILES Abs Monocytes 0.70 x10(9)/L 0.30 - 0.90 02/11 06:54 :00 [facility] HEMATOLOGY PROFILES Abs Eosinophils 0.22 x10(9)/L 0.05 - 0.50 02/11 06:54 :00 [facility] HEMATOLOGY PROFILES Abs Basophils 0.04 x10(9)/L 0.00 - 0.30 02/11 06:54 :00 [facility] HEMATOLOGY PROFILES Abs Immature Granulocytes 0.01 x10(9)/L 0.00 - 0.03 02/11 06:54 :[address] [facility] [place] [place] CHEMISTRY AST-SGOT 50 U/L 02/09 19:27 :00 [facility] GENERAL CHEMISTRY Albumin 2.6 g/dL 3.4 - 5.0 02/09 19:27 :[address] [facility] [place] [place] CHEMISTRY Alkaline Phosphatase 176 U/L 35 - 104 02/09 19:27 :[address] [facility] [place] [place] CHEMISTRY ALT-SGPT 56 U/L 10 - 40 02/09 19:27 :[address] [facility] [place] [place] CHEMISTRY BUN 9 mg/dL 6 - 20 02/09 19:27 :[address] [facility] [place] [place] CHEMISTRY Calcium 8.7 mg/dL 8.3 - 10.6 02/09 19:27 :00 [facility] GENERAL CHEMISTRY Glucose Lvl 101 mg/dL 70 - 139 02/09 19:27 :00 [facility] GENERAL CHEMISTRY Chloride 105 mmol/L 98 - 107 02/09 19:27 :00 [facility] GENERAL CHEMISTRY Sodium 140 mmol/L 136 - 145 02/09 19:27 :00 [facility] GENERAL CHEMISTRY Potassium 3.9 mmol/L 3.5 - 5.1 02/09 19:27 :00 [facility] GENERAL CHEMISTRY CO2 31 mmol/L 20 - 31 02/09 19:27 :00 [facility] GENERAL CHEMISTRY Anion gap 8 mmol/L 0 - 20 02/09 19:27 :00 [facility] GENERAL CHEMISTRY T Bili 0.20 mg/dL 0.30 - 1.20 02/09 19:27 :00 [facility] GENERAL CHEMISTRY Total Protein 5.7 g/dL 5.7 - 8.2 02/09 19:27 :00 [facility] GENERAL CHEMISTRY Creatinine, standardized 0.3 mg/dL 0.5 - 1.0 02/09 19:27 :00 Interpretive Data: Ivuvbr-al-qvl e transgender patients on testosterone therapy should have results assessed using the male reference range. Rddh-av-nxhty e transgender patients on hormone-modul ating therapy clinical judgment is advisedfor assessment. [facility] GENERAL CHEMISTRY Estimated GFR for Adults 128 mL/min/1.7 3m 02/09 19:27 :00 Interpretive Data: Changed to CKD-EPI 2020 on 2020. [facility] GENERAL CHEMISTRY Estimated GFR for peds Not calculated 02/09 19:27 :00 Interpretive Data: The estimated GFR was calculated using the Nayan schumacher Dickerson equation (2009) . Reference: Pediatric GFR calculator at [employer] Website. [facility] GENERAL CHEMISTRY Procalcitoni n 0.10 ng/mL 02/09 19:27 :00 [facility] HEMATOLOGY PROFILES WBC 12.73 x10(9)/L 3.50 - 10.50 02/09 19:27 :00 [facility] HEMATOLOGY PROFILES RBC 4.37 x10(12)/L 3.90 - 5.03 02/09 19:27 :00 [facility] HEMATOLOGY PROFILES HGB 11.6 g/dL 12.0 - 15.5 02/09 19:27 :00 Interpretive Data: Ifkwwp-lb-oko e transgender patients on testosterone therapy should have results assessed using the male reference range. Jvwp-tp-wovho e transgender patients on hormone-modul ating therapy clinical judgment is advisedfor assessment. [facility] HEMATOLOGY PROFILES HCT 36.6 % 34.9 - 44.5 02/09 19:27 :00 Interpretive Data: Rxwxgl-im-oql e transgender patients on testosterone therapy should have results assessed using the male reference range. Ctsy-yp-dnogn e transgender patients on hormone-modul ating therapy clinical judgment is advisedfor assessment. [facility] HEMATOLOGY PROFILES MCV 83.8 fL 81.6 - 98.3 02/09 19:27 :00 [facility] HEMATOLOGY PROFILES MCH 26.5 pg 26.0 - 33.0 02/09 19:27 :00 [facility] HEMATOLOGY PROFILES MCHC 31.7 g/dL 32.0 - 36.0 02/09 19:27 :00 [facility] HEMATOLOGY PROFILES RDW CV 22.1 % 11.9 - 15.5 02/09 19:27 :00 [facility] HEMATOLOGY PROFILES RDW SD 67.3 fL 36.4 - 46.3 02/09 19:27 :00 [facility] HEMATOLOGY PROFILES PLT 274 x10(9)/L 150 - 450 02/09 19:27 :00 [facility] HEMATOLOGY PROFILES MPV 8.5 8.0 - 12.0 02/09 19:27 :00 [facility] HEMATOLOGY PROFILES % Nucleated RBCs 0.0 % 02/09 19:27 :00 [facility] HEMATOLOGY PROFILES Absolute Nucleated RBCs 0.0 x10(9)/L 0.0 - 0.0 02/09 19:27 :00 Interpretive Data: Normal values not established in patients less than 18 years old. [facility] HEMATOLOGY PROFILES % Neutrophils 80.3 % 02/09 19:27 :00 [facility] HEMATOLOGY PROFILES % Lymphocytes 9.9 % 02/09 19:27 : [facility] HEMATOLOGY PROFILES % Monocytes 7.0 % 02/09 19:27 :00 [facility] HEMATOLOGY PROFILES % Eosinophils 2.0 % 02/09 19:27 : [facility] HEMATOLOGY PROFILES % Basophils 0.5 % 02/09 19:27 :00 [facility] HEMATOLOGY PROFILES % Immature Granulocytes 0.30 % 0.02 - 0.42 02/09 19:27 :00 [facility] HEMATOLOGY PROFILES Absolute Granulocytes 10.22 x10(9)/L 1.70 - 7.00 02/09 19:27 :00 [facility] HEMATOLOGY PROFILES Abs Lymphocytes 1.26 x10(9)/L 0.90 - 2.90 02/09 19:27 :00 [facility] HEMATOLOGY PROFILES Abs Monocytes 0.89 x10(9)/L 0.30 - 0.90 02/09 19:27 :00 [facility] HEMATOLOGY PROFILES Abs Eosinophils 0.26 x10(9)/L 0.05 - 0.50 02/09 19:27 :00 [facility] HEMATOLOGY PROFILES Abs Basophils 0.06 x10(9)/L 0.00 - 0.30 02/09 19:27 :00 [facility] HEMATOLOGY PROFILES Abs Immature Granulocytes 0.04 x10(9)/L 0.00 - 0.03 02/09 19:27 :00 [facility] HEMATOLOGY PROFILES Morphology Present *NA* (02/10/24 2:27 PM) 02/09 19:27 :00 [facility] HEMATOLOGY PROFILES Platelet Estimate Adequate *NA* (02/10/24 2:27 PM) 02/09 19:27 :00 [facility] HEMATOLOGY PROFILES Aniso 1+ (10-20%) *NA* (02/10/24 2:27 PM) 02/09 19:27 :[address] [facility] [address] Chest CT Chest CT Scan/CT Angio Accession # Exam Date/Time Procedure Ordering Provider [id number] 02/09/2024 19:[address] Chest Segun Raymundo MD Reason For Exam (CT Chest) FU lesion on CXR Report EXAMINATIO N: CT Chest with IV contrast INDICATION : FU lesion on CXR COMPARISON : CT thoracic spine 09/23/2019 TECHNIQUE: Spiral CT was obtained from the jugular notch through the posterior costophren ic recess. 3-D MIPS, sagittal and coronal reformats were obtained. FINDINGS: LUNGS/PLEU RA: Bilateral upper lobe predominan t groundglas s opacities with associated bronchiole ctasis and focal emphysema. Scattered bilateral mosaic attenuatio n is present. Bibasilar subsegment al atelectasi s. Few scattered calcified granulomas . Few bilateral sub-6 mm pulmonary nodules (series 3, yellow arrows). The airways are patent. No pleural effusion or focal pleural lesions. No pneumothor ax. MEDIASTINU M: No mediastina l or hilar lymphadeno shay. The thoracic aorta is normal in caliber. The pulmonary arteries are normal in caliber. The heart is normal in size. No pericardia l effusion. No significan t coronary atheroscle rosis. The visualized thyroid is unremarkab le. The visualized esophagus is unremarkab le. AXILLA/SOF T TISSUE: No supraclavi cular or axillary lymphadeno shay. Bilateral mastectomy with saline breast implants. UPPER ABDOMEN: Postsurgic al changes of Elva-en-Y gastric bypass. No acute findings within the visualized upper abdomen. BONES: No evidence of acute fractures or aggressive osseous lesions. IMPRESSION : Bilateral upper lobe predominan t groundglas s opacities with associated bronchiole ctasis with scattered areas of mosaic attenuatio n bilaterall y. This is new compared to CT thoracic spine scan performed 5 months prior. Findings may be secondary to hypersensi tivity pneumoniti s versus organizing pneumonia versus nonspecifi c interstiti al pneumonia. I have personally reviewed the images and attest to the contents of CT Scan/CT Angio Report this report. * * *Final Report* * * Electronic ally Signed by: Bam Salomon MD Signed on: 02/09/24 20:54 02/08 18:49 :52 [facility] XR Spine Cervical XR Spine Cervical XR General Diagnostic Accession # Exam Date/Time Procedure Ordering Provider [id number] 02/08/2024 18:39 CDT XR Spine Cervical Milagros Carlos MD Reason For Exam (XR Spine Cervical) C3-5 posterior instrument ed fusion Report EXAMINATIO N: XR Spine Cervical INDICATION : C3-5 posterior instrument ed fusion VIEWS: 2 COMPARISON : Correlatio n made with prior MRI from September 24, 2023. FINDINGS: Interval posterior laminectom y with posterior spinal fusion at C3, C4, and C5 levels. Stable anterior cervical fusion at C5-6 level. Slight prominence of the soft tissues in the posterior neck related to recent surgery. A surgical drain is noted to be in place. No complicati on is identified . Fusion surgery with sideplate and screws are seen at the angle of the mandible bilaterall y. IMPRESSION : Interval posterior laminectom y with posterior spinal fusion at C3, C4 and C5 levels. I have personally reviewed the images and attest to the contents of this report. * * *Final Report* * * Electronic ally Signed by: Bam Salomon MD Signed on: 02/08/24 19:11 02/07 18:36 :43 [facility] XR C-Arm XR C-Arm XR General Diagnostic Accession # Exam Date/Time Procedure Ordering Provider [id number] 02/08/2024 10:05 CDT XR C-Arm Hardy Paz MD Reason For Exam (XR C-Arm) c-arm Report OR C-arm case. Exam performed. No report to be issued. I have personally reviewed the images and attest to the contents of this report. * * *Final Report* * * Electronic ally Signed by: Vee r_system, [email or web address] Signed on: 02/08/24 10:08 02/07 10:04 :28 [facility] COAGULATIO N PT 11.0 s 9.4 - 12.5 11/21 19:19 :00 [facility] COAGULATIO N INR 1.0 0.9 - 1.2 11/21 19:19 :00 Interpretive Data: Suggested therapeutic INR range for stable oral anticoagulati on: Optimal Therapeutic INR Range 2.0-3.0 Therapeutic Range for High-Risk Groups (antiphoshpol ipid syndrome with previous thrombosis) 2.0-3.0 DVT of the leg 2.0-3.0 PE 2.0-3.0 Patients with AF and Stable Coronary Artery Disease 2.0-3.0 Bioprosthetic valve in the mitral position 2.0-3.0 Mechanical mitral valve or additional risk factors 2.5-3.5 Prevention of Recurrent VTE in Women prophylaxis for 6 weeks with prophylactic- or intermediate- dose LMWH or warfarin targeted at INR 2.0 or 3.0 rather than no prophylaxis For additional guidance see: Dona GH, Cindy EA, Sho M, Ella DD, Jigna n karyna HJ; [employer] Antithromboti c Therapy and Prevention of Thrombosis Panel. Executive summary: Antithromboti c Therapy and Prevention of Thrombosis, 9th Ed: [employer] Evidence-Base d Clinical Practice Guidelines. Chest. 2011; 141(2 Suppl):7S-47S . doi: 10.1378/chest .1412S3 [facility] COAGULAT[facility] N PTT 33.1 s 25.1 - 36.5 11/21 19:19 :00 Interpretive Data: Recommendatio ns for anticoagulant therapeutic ranges: Unfractionate d Heparin: Please order the anti-Xa assay. Target ranges and medication management recommendatio ns are based on the anti-Xa assay and posted in [employer] (see Medication Management-Ad ult Heparin Nomogram). Argatroban: Target ranges and medication management recommendatio ns are posted in [employer] (see Medication Management- Adult Argatroban Nomogram). Low molecular weight heparin or danaparoid monitoring: Please order the anti-Xa assay. Please contact the Pharmacy or the Clinical Pathology Service for additional questions. [facility] GENERAL CHEMISTRY Sodium 139 mmol/L 136 - 145 11/21 19:19 :00 [facility] GENERAL CHEMISTRY Potassium 4.0 mmol/L 3.5 - 5.1 11/21 19:19 :00 [facility] GENERAL CHEMISTRY Chloride 107 mmol/L 98 - 107 11/21 19:19 :00 [facility] GENERAL CHEMISTRY CO2 25 mmol/L 22 - 29 11/21 19:19 :00 [facility] GENERAL CHEMISTRY Anion gap 11 mmol/L 0 - 20 11/21 19:19 :00 [facility] GENERAL CHEMISTRY Glucose Lvl 135 mg/dL 70 - 139 11/21 19:19 :00 [facility] GENERAL CHEMISTRY BUN 23 mg/dL 6 - 20 11/21 19:19 :00 [facility] GENERAL CHEMISTRY Creatinine, standardized 0.58 mg/dL 0.50 - 1.00 11/21 19:19 :00 Interpretive Data: Jchakf-iz-vso e transgender patients on testosterone therapy should have results assessed using the male reference range. Mpep-ol-gwfmp e transgender patients on hormone-modul ating therapy clinical judgment is advisedfor assessment. [facility] GENERAL CHEMISTRY Estimated GFR for peds Not calculated 11/21 19:19 :00 Interpretive Data: The estimated GFR was calculated using the B winsome Dickerson equation (2009) . Reference: Pediatric GFR calculator at National Kidney Foundation Website. [facility] GENERAL CHEMISTRY Calcium 8.4 mg/dL 8.6 - 10.2 11/21 19:19 :00 [facility] GENERAL CHEMISTRY Alkaline Phosphatase 144 units/L 35 - 104 11/21 19:19 :00 Interpretive Data: Normal range for plasma alkaline phosphatase in females 20 years or older: 35-104 U/L according to french lecturer' s instructions 35-129 U/L according to data analysis on adult females who presented to [facility] in 2021 without a significant diagnosis Clinical judgement is advised. Erlewj-iy-nhc e transgender patients on testosterone therapy should have results assessed using the male reference range. Wjaf-ue-rqmly e transgender patients on hormone-modul ating therapy clinical judgment is advisedfor assessment. [facility] GENERAL CHEMISTRY AST-SGOT 19 units/L 11/21 19:19 :00 [facility] GENERAL CHEMISTRY ALT-SGPT 18 units/L 10 - 35 11/21 19:19 :00 [facility] GENERAL CHEMISTRY T Bili <0.15 mg/dL 0.00 - 1.60 11/21 19:19 :00 [facility] GENERAL CHEMISTRY Total Protein 5.6 g/dL 6.6 - 8.7 11/21 19:19 :00 [facility] GENERAL CHEMISTRY Albumin 3.2 g/dL 3.5 - 5.2 11/21 19:19 :00 [facility] GENERAL CHEMISTRY Estimated GFR for Adults >90 mL/min/1.7 3m 11/21 19:19 :00 Result Comment: The eGFR was estimated using the CKD-EPI equation. The National Kidney Foundation recommends that all clinical labs utilize this equation: Julian , Amos LA, Ghulam CH, et al. A new equation to estimate glomerular filtration rate. Apmaro Bindery Production Manager Med. 2009;150(9):6 04-612. For calculation reference see https://www.k nvney.org/pro fessionals/kd oqi/gfr_calcu latremedios Interpretive Data: Changed to CKD-EPI 2020 on 2020. [facility] HEMATOLOGY PROFILES WBC 8.14 x10(9)/L 3.50 - 10.50 11/21 19:19 :00 [facility] HEMATOLOGY PROFILES RBC 4.44 x10(12)/L 3.90 - 5.03 11/21 19:19 :00 [facility] HEMATOLOGY PROFILES HGB 10.1 g/dL 12.0 - 15.5 11/21 19:19 :00 Interpretive Data: Nunhkc-su-jjy e transgender patients on testosterone therapy should have results assessed using the male reference range. Ebfg-vm-pnbbl e transgender patients on hormone-modul ating therapy clinical judgment is advisedfor assessment. [facility] HEMATOLOGY PROFILES HCT 33.5 % 34.9 - 44.5 11/21 19:19 :00 Interpretive Data: Blffmo-gp-qmn e transgender patients on testosterone therapy should have results assessed using the male reference range. Ctij-eg-bqoft e transgender patients on hormone-modul ating therapy clinical judgment is advisedfor assessment. [facility] HEMATOLOGY PROFILES MCV 75.5 fL 81.6 - 98.3 11/21 19:19 :00 [facility] HEMATOLOGY PROFILES MCH 22.7 pg 26.0 - 33.0 11/21 19:19 :00 [facility] HEMATOLOGY PROFILES MCHC 30.1 g/dL 32.0 - 36.0 11/21 19:19 :00 [facility] HEMATOLOGY PROFILES RDW CV 18.8 % 11.9 - 15.5 11/21 19:19 :00 [facility] HEMATOLOGY PROFILES RDW SD 51.1 fL 36.4 - 46.3 11/21 19:19 :00 [facility] HEMATOLOGY PROFILES PLT 429 x10(9)/L 150 - 450 11/21 19:19 :00 [facility] HEMATOLOGY PROFILES MPV 7.9 8.0 - 12.0 11/21 19:19 :00 [facility] HEMATOLOGY PROFILES % Nucleated RBCs 0.0 % 11/21 19:19 :00 [facility] HEMATOLOGY PROFILES Absolute Nucleated RBCs 0.0 x10(9)/L 0.0 - 0.0 11/21 19:19 :00 Interpretive Data: Normal values not established in patients less than 18 years old. [facility] HEMATOLOGY PROFILES % Neutrophils 52.0 % 11/21 19:19 :00 [facility] HEMATOLOGY PROFILES % Lymphocytes 34.6 % 11/21 19:19 :00 [facility] HEMATOLOGY PROFILES % Monocytes 9.2 % 11/21 19:19 :00 [facility] HEMATOLOGY PROFILES % Eosinophils 2.8 % 11/21 19:19 :00 [facility] HEMATOLOGY PROFILES % Basophils 1.2 % 11/21 19:19 :00 [facility] HEMATOLOGY PROFILES %
--- OUTSIDE RECORDS SUMMARY | 2024-10-19 13:14 | XMS_ITS | Clinical Summary ---
Author Organization [facility] Address [address] [place] [address] Care Team Providers Care Montessori Program Director Name Role Phone Costa Sanchez MD Primary Care Provider Yamileth Leon MD Unavailable Source Comments [facility],non-owned Affiliates and Associated Physician Practices is amultiple site organization consisting of ambulatory clinics and hospital sitesin [place], [place], [place] and [place]. This disclosure is being madepursuant to the Care Everywhere program and may not contain all information available regarding this patient. Last updated 18.[facility] Allergies Active Allergy Reactions Criticality Noted Date Comments Clarithromycin Nausea and/or Vomiti ng,GI Discomfort Low 01/14/2021 Enbrel Other 03/23/2023 Latex 09/15/2010 IRRITATES SKIN red and itchy Leflunomide Unknown 12/15/2022 Sulfasalazine Other Low 12/29/2019 Reaction: Other Medications * Be aware that medications may not be up to date on this document. Alwaysverify current medications with the patient. B Complex Vitamins (B COMPLEX 100) TABS Take by mouth once daily Active Other CALCIUM 1200MG WITH VITAMIN D 1000UNITS BY MOUTH DAILY Active biotin 2.5 MG tablets Take 2.5 mg by mouth once daily Active Multiple Vitamins-Minera ls (MULTIVITAMIN GUMMIES ADULT PO) Take by mouth once daily Active oxyCODONE, immediate release, (ROXICODONE) 5 MG tablet Take 5 mg by mouth as needed 0 8 Active dexmethylphenid ate ER 24hr (FOCALIN XR) 30 MG capsule Take 1 (one) capsule by mouth every morning 0 8 Active ondansetron (ZOFRAN) 4 MG tablet Take 4 mg by mouth every 6 hours as needed for Nausea/Vomiting Active omeprazole (PRILOSEC) 40 MG capsule Take 1 (one) capsule by mouth 2 times daily, before breakfast and supper 60 capsule 3 1 Active sucralfate (CARAFATE) 1 GM tablet Take 1 (one) tablet by mouth 4 times daily - before meals & nightly Crush the tablet in small amount of liquid prior to taking 120 tablet 2 1 Active Additional Information Patient not taking.Reported on 03/23/2023 gabapentin (Neurontin) 600 MG tablet TAKE 1 & 1/2 TABLETS (900MG) BY MOUTH 3 TIMES A DAY 3 Active DULoxetine (Cymbalta) 60 MG capsule Take 1 (one) capsule by mouth once daily 3 Active HYDROcodone-joaquín taminophen ([place]) 10-325 MG tablet Take 1 (one) tablet by mouth 2 times daily as needed 2 Active tiZANidine (Zanaflex) 4 MG tablet Take 1 (one) tablet by mouth 2 times daily as needed Active busPIRone (Buspar) 7.5 MG tablet Take 1 (one) tablet by mouth 2 times daily 3 Active predniSONE (Deltasone) 10 MG tablet TAKE 3 TABLETS BY MOUTH DAILY FOR 3 DAYS THEN TAKE 2 TABLETS BY MOUTH DAILY FOR 3 DAYS THEN TAKE 1 TABLET BY MOUTH DAILY WITH FOOD FOR 3 DAYS Active Active Problems Problem Noted Date Diagnosed Date Psoriatic arthritis 10/25/2017 H/O gastric bypass 10/25/2017 Encounters Date Type Department Care Team Description 10/19/2024 Travel from Last 3 Months Social History Tobacco Use Types Packs/Day Years Used Date Smoking Tobacco: Former Cigarettes 1 7 2 012 - 2018 Smokeless Tobacco: Never Tobacco Cessation:Counseling Given: Not Answered Alcohol Use Standard Drinks/Week Comments No 0 (1 standard drink = 0.6 oz pur e alcohol) Comments No Sex and Gender Information Value Date Recorded Sex Assigned at Not on file Legal Sex Female 10:04 AM SUPPLIER SPECIALIST Gender Identity Not on file Sexual Orientation Not on file Last Filed Vital Signs Vital Sign Reading Time Taken Comments Blood Pressure 151/82 03/23/2023 1:41 PM CDT Pulse 90 03/23/2023 1:41 PM CDT Temperature 36.4 C (97.6 F) 03/23/2023 1:41 PM CDT Respiratory Rate 18 05/21/2021 10:50 AM SUPPLIER SPECIALIST Oxygen Saturation 98% 03/23/2023 1:41 PM CDT Inhaled Oxygen Concentration - - Weight 80.4 kg (177 lb 3.2 oz) 03/23/2023 1:41 P M CDT Height 170.2 cm (5' 7 ) 03/23/2023 1:41 PM CDT Body Mass Index 27.75 03/23/2023 1:41 PM CDT Plan of Treatment Upcoming Encounters Date Type Department Care Team (Late st Contact Info) Description 12/15/2024 2:00 PM CDT Office Visit [facility] - Neurology [address] [place] [address], [place] [phone] Deandre Neal, PRE BILLING SPECIALIST-CITY CARRIER ASSISTANT [address] [place] [address] [place] [address] Health Maintenance Due Date Last Done Comments COLOGUARD (AGES 45-75) - COLON CA SCREENING 1969 COLON MONITORING 1969 COLONOSCOPY - COLON CA SCREENING 1969 CT COLONOGRAPHY - COLON CA SCREENING 1969 Colorectal Cancer Screening 1969 FIT - COLON CA SCREENING 1969 FLEX SIG - COLON CA SCREENING 1969 LIPID TESTING 1969 HIV SCREENING 1984 HEPATITIS C SCREENING 08/23/1987 DTAP/TDAP/TD VACCINES (1 - Tdap) 1988 HEPATITIS B VACCINE (1 of 3 - 19+ 3-dose series) 1988 PNEUMOCOCCAL VACCINE 50+ (1 of 1 - PCV) 08/28/2019 ZOSTER VACCINE (1 of 2) 08/28/2019 SCREENING FOR DIABETES 03/23/2023201 8, 03/12/2017, 01/29/2017, Additional history exists MAMMOGRAM 12/13/2023 12/12/2021, 12/12/2021 COVID-19 VACCINE ( season) 2024 DEPRESSION SCREENING 06/07/2024 INFLUENZA VACCINE (Season Ended) 2025 04/22/2022 PAP SMEAR 03/18/2025 03/18/2022 HIB VACCINE Aged Out No longer eligi ble based on patient's age to complete this topic HPV VACCINE Aged Out No longer eligi ble based on patient's age to complete this topic MENINGOCOCCAL (Group B) VACCINE SHARED DECISION-MAKING Aged Out No longer eligible based on patient's age to complete this topic MENINGOCOCCAL GROUPS A/C/Y/W VACCINE Aged Out No longer eligible based on patient's age to complete this topic Procedures Procedure Name Priority Date/Time Associated Diagnosis Comments COMPREHENSIVE METABOLIC PANEL Routine 10/18/2017 11:55 AM CDT Psoriatic arthritis High risk medication use Long-term use of immunosuppressant medication from Last 3 Months or Most Recently Relevant to Health Maintenance Results * (ABNORMAL) COMPREHENSIVE METABOLIC PANEL (10/18/2017 11:55 AM CDT) BUN 14 7 - 26 mg/dL 10/18/2017 12:53 PM [facility] Creatinine 0.7 0.6 - 1.2 mg/dL 10/18/2017 12:53 PM [facility] Sodium 139 136 - 145 mmol/L 10/18/2017 12:53 PM [facility] Potassium 4.2 3.5 - 4.5 mmol/L 10/18/2017 12:53 PM [facility] Chloride 106 98 - 107 mmol/L 10/18/2017 12:53 PM [facility] CO2 25 22 - 29 mmol/L 10/18/2017 12:53 PM [facility] Glucose 87 70 - 115 mg/dL 10/18/2017 12:53 PM [facility] Calcium 9.0 8.4 - 10.2 mg/dL 10/18/2017 12:53 PM [facility] Protein Total 6.6 6.0 - 8.3 g/dL 10/18/2017 12:53 PM [facility] Albumin 3.2(L) 3.4 - 5.0 g/dL 10/18/2017 12:53 PM [facility] Bilirubin Total 0.3 0.2 - 1.2 mg/dL 10/18/2017 12:53 PM [facility] Alkaline Phosphatase 109 40 - 150 Units/L 10/18/2017 12:53 PM [facility] ALT 13 0 - 55 Units/L 10/18/2017 12:53 PM [facility] AST 16 5 - 34 Units/L 10/18/2017 12:53 PM [facility] Anion Gap 12 8 - 18 10/18/2017 12:53 PM [facility] BUN/Creatinine Ratio 20 7 - 23 10/18/2017 12:53 PM [facility] Osmolality Calculated 288 270 - 300 mOsm/kg 10/18/2017 12:53 PM [facility] Albumin/Globulin Ratio 0.9(L) 1.1 - 2.3 10/18/2017 12:53 PM [facility] eGFR >60 >60 mL/min/1.7 3 m2 10/18/2017 12:53 PM [facility] Blood BLOOD SPECIMEN / Unknown Lab Venipuncture / Unknown 10/18/2017 11:55 AM CDT 10/18/2017 12:26 PM [facility] Kimberly Spencer MD LAB - CHEMISTRY ORDERABLES Final Result [facility] [address] [phone] from Last 3 Months or Most Recently Relevant to Health Maintenance Insurance [email or web address] Advance Directives Documents on File Type Date Recorded Patient Item Repair Manager Expl anation Adv Directive/Living Will/POA 09/16/2015 3:43 PM Care Teams Montessori Program Director Relationship Specialty Start Date End Date Costa Sanchez MD [address] [place] [id number] PCP - General Internal Medicine 08/20/15 Yamileth Leon MD [address] [place] [phone] Rheumatology 03/23/23
--- OUTSIDE RECORDS SUMMARY | 2024-10-19 13:15 | XMS_ITS | Encounter Summary ---
Author Organization [facility] Healthcare Address [address] [place] [address] Care Team Providers Care Maintenance Supervisor 2Nd Shift Name Role Phone Corinna Bain Primary Care Provider [phone] Miscellaneous, Not In File Unavailable Unava ilable Tariq Jain MD Unavailable [phone] Alison Swanson MD Unavailable [phone] Rima Carrizales NP Primary Care Provider Mercedez Torri Sosa MD Primary Care Provider Reason for Visit * Reason Onset Date Comments PMC Preprocedure 08/19/2023 My Chart sent Encounter Details Date Type Department Care Team (Late st Contact Info) Description 08/19/2023 Telephone [facility] [address] [place], [place] [id number] Janel Becerra NP [address] [place] [address] PMC Preprocedure (My Chart sent) Social History Tobacco Use Types Packs/Day Years Used Date Smoking Tobacco: Former Cigarettes 1 33 1 988 - 2020 Smokeless Tobacco: Never Comments:quit one month ago Alcohol Use Standard Drinks/Week Comments Yes 0 (1 standard drink = 0.6 oz pur e alcohol) 2-3 times a month AUDIT-C Answer Date Recorded Q1: How often do you have a drink containing alcohol? Never 05/20/2023 Q2: How many drinks containi ng alcohol do you have on a typical day when you are drinking? Patient does not drink 3 Q3: How often do you have si x or more drinks on one occasion? Never 05/20/2023 PHQ-2 Answer Date Recorded PHQ-2 Score 2 08/14/2019 Comments No Sex and Gender Information Value Date Recorded Sex Assigned at Not on file Legal Sex Female 8:12 AM CDT Gender Identity Not on file Sexual Orientation Not on file documented as of this encounter Plan of Treatment Not on file documented as of this encounter Goals Goal Patient Goal Type Associated Problems Recent Progress Patient-Stated? Author CCM Chronic Pain Care Plan Chronic Care Management Worsening( 2:53 PM CDT) No Prisca Eaton RN Note: Problem: Chronic Pain Goals: 1. Minimize further functional decline 2. Maximize quality of life 3. Control pain Strategies: - Activity/exercise program recommendation - Conservative stepwise pain medicine strategy with multi-disciplinary approach - Recommend healthy lifestyle strategies and compensatory methods as needed documented as of this encounter Visit Diagnoses Not on filedocumented in this encounter Care Teams Maintenance Supervisor 2Nd Shift Relationship Specialty Start Date End Date Corinna Bain PA [address] [place] [address] PCP - General Family Practice 12/15/22 09/19/23 Rima Carrizales NP [address] [facility] [address] [place] [address] PCP - General Nurse Practitioner 09/20/23 07/31/24 Torri Ruiz MD [address] [place] [address] PCP - General Family Medicine 08/01/24 Miscellaneous, Not In File 01/13/23 Tariq Jain MD [address] [place] [address] Consulting Physician Neurosurgery 01/13/23 Alison Swanson MD [address] [facility] [address] [place] [address] Referring Physician Industrial Green Systems Designer 06/09/23 documented as of this encounter
--- OUTSIDE RECORDS SUMMARY | 2024-10-19 13:15 | XMS_ITS ---
Author Organization [facility] [place] Address [address] [place], [place] [id number] Care Team Providers Care Supervisor Reinforced Steel Placing Name Role Phone USAMA ALBERTS Primary Care Provider Eliseo Plata Unavailable [phone] REASON FOR VISIT Medical Records Encounters Encounter Location Date Provider Diagnosis [address] [address] 08/19/2023 Eliseo Bruce PLAN OF TREATMENT No Information
== END 2024-10-19 13:07 | disposition home or self-care (01) ==
LOC: CHSIMG 13:10
PROVIDERS: PCP Family Medicine; Visit Provider Family Medicine
DX: R91.1 Solitary pulmonary nodule (principal); J43.9 Emphysema, unspecified
CPT/HCPCS: 71250